=== PATIENT | male | born 1970 | race Caucasian/White ===

== ENCOUNTER 2025-06-13 09:36 | Inpatient (IN) | payer OTHER, SELFPAY ==
[2025-06-13] VITALS (10 sets, daily range): BP systolic 118–139; BP diastolic 79–91; PULSE 67–88; RESP 13–21; TEMP 36.3–36.5; O2SAT 79–99; BMI 34.4
--- OUTSIDE RECORDS SUMMARY | 2025-06-13 05:26 | XMS_ITS | Encounter Summary ---
Author Organization [facility] Address 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 WRIGHT and scanned into [employer]. * Rohan Amador RCP - 06/13/2025 8:49 AM CDT REPEAT EKG completed. Results given to Dr. WRIGHT and scanned into [employer]. documented in this encounter ED Notes * Smiley Guzman RN - 06/13/2025 9:00 AM CDT Report given to EMS. * Monserrat Sanchez RN - 06/13/2025 8:45 AM CDT Dispatch notified of patient transfer at this time. * Lynn Cohen RCP - 06/13/2025 5:41 AM CDT EKG completed. Results given to Dr. Estrada and scanned into [employer]. * Bianca Jay RN - 06/13/2025 5:26 [...] given to Dr. Estrada and scanned into [employer]. * Quinton Wright MD - 06/13/2025 5:09 [...] here with chest pain Differential includes ACS, CA, pneumonia, costochondritis, shingles Will do cardiac workup [...] obtained showing acute STEMI. Reached out to [facility] and the case was presented to the count team clerk who recommended for the patient to be [...] ED Stay from 06/13/2025 0509 to 06/13/2025 0873 Date/Time Order Dose Route Action 06/13/2025 0538 CDT aspirin ([place] CHEWABLE) chewable tablet 324 [...] for Stopping: fluticasone propionate (FLONASE) 50 mcg/spray [place], Suspension nasal inhaler Comments: Reason for Stopping: LAST VS BP: (!) 127/97 (06/13/25799), Heart Rate: 74 bpm (06/13/25799), Resp: 15 (06/13/25799), Pulse: 73 (06/13/25799), Temp: 98.8 ??F (37.1 ??C) (09/02/25 0520), Temp src: Oral (06/13/25 0520), SpO2: 95 % (06/13/25 0800) CLINICAL IMPRESSION Diagnosis Diagnosis Comment Added By Time Added ST elevation myocardial infarction (STEMI), unspecified artery ([facility]/HCC) [I21.3] Quinton Wright MD06/13/2025 8:41 AM DISPOSITION, EDUCATION AND MEDICATION RECONCILIATION Medications reconciled. See after visit summary for patient education on discharged patients. ED Disposition ED Disposition Transfer Condition Stable User Quinton Wright MD Date/Time ThuJun 13, 2025 8:44 AM Comment -- ATTESTATION STATEMENTS documented in this encounter Plan of Treatment Scheduled Orders Name Type Priority Associated Diagnoses Orde r Schedule TROPONIN 6 HR, 5TH GEN Lab Timed Study O NE TIME for 1 Occurrences starting 06/13/2025 until 06/13/2025 CBC WITHOUT DIFFERENTIAL Lab Routine EVERY SEVENTY-TWO HOURS until discontinued starting 06/13/2025 documented as of this encounter Procedures Procedure Name Priority Date/Time Associated Diagnosis Comments TROPONIN 2 HR, 5TH GEN Timed Study [...] CDT documented in this encounter Results * (ABNORMAL) TROPONIN 2 HR, 5TH GEN (06/13/2025 7:09 AM CDT) TROPONIN T, 2 HR 5TH GEN 23(H) <=15 ng/L 06/13/2025 7:27 AM CDT [facility] DELTA 2HR TROPONIN T 1 See Interp. 06/13/2025 7:27 AM CDT [facility] Blood BLOOD SPECIMEN / Unknown Collection / Unknown 06/13/2025 7:09 AM CDT 06/13/2025 7:14 AM CDT Narrative [facility] - 06/13/2025 7:27 AM CDT Troponin elevated. Delta not changing. us Levy Estrada MD CHEMISTRY ORDERABLES Final Result [facility] CLIA # [id number] [address] [place] [id number] * XR CHEST PA OR AP 1 [...] spine. IMPRESSION: No acute cardiopulmonary findings. Result [facility] Levy Estrada MD DIAGNOSTIC IMAGING [...] - 2.6 mg/dL 06/13/2025 9:12 AM CDT [facility] Blood BLOOD SPECIMEN / Unknown Collection / Unknown 06/13/2025 5:15 AM CDT 06/13/2025 5:25 AM CDT Quinton Wright MD CHEMISTRY ORDERABLES Final Resu lt [id number] [address] [place] [phone] * (ABNORMAL) TSH (06/13/2025 5:15 AM CDT) TSH 4.62(H) 0.27 - 4.20 uIU/mL 06/13/2025 9:12 AM CDT [facility] Blood BLOOD SPECIMEN / Unknown Collection / Unknown 06/13/2025 5:15 AM CDT 06/13/2025 5:25 AM CDT us Quinton Wright MD CHEMISTRY ORDERABLES Final Resu lt Performing Organization Address [facility] Co de Phone Number [facility] [id number] [address] [place] [phone] * BRAIN NATRIURETIC PEPTIDE, BNP OR PROBNP (06/13/2025 5:15 AM CDT) PROBNP, N TERMINAL <36 0 - 125 pg/mL 06/13/2025 9:12 AM CDT [facility] Comment: INTERPRETIVE COMMENT based on diagnosis: Diagnostic [...] ORDERABLES Final Resu lt Performing Organization Address City/[facility]/ZIP Co de Phone Number [facility] [id number] [address] [place] [phone] * PROTIME-INR (06/13/2025 5:15 AM CDT) PROTIME 12.7 12.1 - 14.3 Seconds 06/13/2025 9:01 AM CDT [facility] INR 1.0 0.9 - 1.1 06/13/2025 9:01 AM CDT [facility] Blood BLOOD SPECIMEN / Unknown Collection / Unknown 06/13/2025 5:15 AM CDT 06/13/2025 8:48 AM CDT us Quinton Wright MD HEMATOLOGY ORDERABLES Final Res ult [facility] CLIA # [id number] [address] [place] [id number] * D-DIMER (06/13/2025 5:15 AM CDT) Pathologist [facility] D-DIMER QUANT <0.15 <0.50 ug/mL FEU 06/13/2025 9:01 AM CDT [facility] Blood BLOOD SPECIMEN / Unknown Collection / Unknown 06/13/2025 5:15 AM CDT 06/13/2025 8:48 AM CDT Narrative [facility] - 06/13/2025 9:01 AM CDT D-Dimer assay [...] ug/mL FEU 71-80 years: 0.71-0.80 ug/mL FEU us Quinton Wright MD HEMATOLOGY ORDERABLES Final Res ult Performing Organization Address City/[facility]/ZIP Co de Phone Number [facility] CLIA # [id number] [address] [place] [phone] * PTT (06/13/2025 5:15 AM CDT) PTT 26.2 25.1 - 35.4 seconds 06/13/2025 9:01 AM CDT [facility] Blood BLOOD SPECIMEN / Unknown Collection / Unknown 06/13/2025 5:15 AM CDT 06/13/2025 8:48 AM CDT Quinton Wright MD HEMATOLOGY ORDERABLES Final Res ult Performing Organization Address [facility] Co de Phone Number [facility] CLIA # [id number] [address] [place] [phone] * (ABNORMAL) TROPONIN BASELINE, 5TH GEN (06/13/2025 5:15 AM CDT) TROPONIN T, BASELINE 5TH GEN 22(H) <=15 ng/L 06/13/2025 5:40 AM CDT [facility] Blood BLOOD SPECIMEN / Unknown Collection / Unknown 06/13/2025 5:15 AM CDT 06/13/2025 5:25 AM CDT Narrative [facility] - 06/13/2025 5:40 AM CDT Troponin elevated. Levy Estrada MD CHEMISTRY ORDERABLES Final Result Performing Organization Address City/[facility]/ZIP Co de Phone Number [facility] CLIA # [id number] [address] [place] [phone] * (ABNORMAL) COMPREHENSIVE METABOLIC PANEL (06/13/2025 5:15 AM CDT) SODIUM 132(L) 136 - 145 mmol/L 06/13/2025 5:40 AM [facility] POTASSIUM 4.2 3.5 - 5.1 mmol/L 06/13/2025 5:40 AM [facility] CHLORIDE 97(L) 98 - 107 mmol/L 06/13/2025 5:40 AM [facility] CO2 24 22 - 29 mmol/L 06/13/2025 5:40 AM [facility] CALCIUM 9.9 8.6 - 10.0 mg/dL 06/13/2025 5:40 AM [facility] BUN 13 6 - 20 mg/dL 06/13/2025 5:40 AM [facility] CREATININE 0.67 0.67 - 1.17 mg/dL 06/13/2025 5:40 AM [facility] GLUCOSE 224(H) 74 - 99 mg/dL 06/13/2025 5:40 AM [facility] TOTAL PROTEIN 7.7 6.6 - 8.7 g/dL 06/13/2025 5:40 AM [facility] ALBUMIN 4.3 3.5 - 5.2 g/dL 06/13/2025 5:40 AM [facility] BILIRUBIN TOTAL 0.6 0.0 - 1.2 mg/dL 06/13/2025 5:40 AM [facility] ALKALINE PHOSPHATASE 86 40 - 129 U/L 06/13/2025 5:40 AM [facility] AST 17 0 - 50 U/L 06/13/2025 5:40 AM [facility] ALT 11 0 - 50 U/L 06/13/2025 5:40 AM [facility] GFR >60 >=60 mL/min/1.7 3 sq meter 06/13/2025 5:40 AM [facility] Comment:eGFR calculated with 2020 CKD-EPI equation. Vegetarian diet, extremely high or low muscle mass, and may affect results. Cystatin C with Glomerular Filtration Rate is a suitable alternative for these patients. ANION GAP 11 5 - 20 mmol/L 06/13/2025 5:40 AM [facility] Blood BLOOD SPECIMEN / Unknown Collection / Unknown 06/13/2025 5:15 AM CDT 06/13/2025 5:25 AM CDT us Levy Estrada MD CHEMISTRY ORDERABLES Final Result [facility] CLIA # [id number] [address] [place] [phone] * (ABNORMAL) CBC WITH DIFFERENTIAL (06/13/2025 5:15 AM CDT) WBC 11.4(H) 4.2 - 9.1 K/uL 06/13/2025 5:38 AM [facility] RBC 6.34(H) 4.63 - 6.08 M/uL 06/13/2025 5:38 AM [facility] HEMOGLOBIN 18.2(H) 13.7 - 17.5 g/dL 06/13/2025 5:38 AM [facility] HEMATOCRIT 52.4(H) 40.1 - 51.0 % 06/13/2025 5:38 AM [facility] MCV 82.6 79.0 - 92.2 fL 06/13/2025 5:38 AM [facility] MCH 28.7 25.7 - 32.2 pg 06/13/2025 5:38 AM [facility] MCHC 34.7 32.3 - 36.5 g/dL 06/13/2025 5:38 AM [facility] RDW 13.1 11.0 - 14.5 % 06/13/2025 5:38 AM [facility] RDW-STDEV 38.5 36.9 - 56.9 fL 06/13/2025 5:38 AM [facility] PLATELETS 263 130 - 400 K/uL 06/13/2025 5:38 AM [facility] MPV 11.2 10.0 - 14.8 fL 06/13/2025 5:38 AM [facility] NEUTROPHILS 51 34 - 68 % 06/13/2025 5:38 AM CDT [facility] LYMPHOCYTES 39 22 - 53 % 06/13/2025 5:38 AM T [facility] MONOCYTES 7 5 - 12 % 06/13/2025 5:38 AM T [facility] EOSINOPHILS 2 1 - 7 % 06/13/2025 5:38 AM T [facility] BASOPHILS 1 0 - 1 % 06/13/2025 5:38 AM T [facility] IMMATURE GRANULOCYTES 0 % 06/13/2025 5:38 AM T [facility] NEUTROPHIL ABSOLUTE 5.78(H) 1.78 - 5.38 K/uL 06/13/2025 5:38 AM [facility] LYMPHOCYTE ABSOLUTE 4.48(H) 1.20 - 3.40 K/uL 06/13/2025 5:38 AM [facility] MONOCYTE ABSOLUTE 0.84(H) 0.30 - 0.82 K/uL 06/13/2025 5:38 AM T [facility] EOSINOPHIL ABSOLUTE 0.18 0.04 - 0.54 K/uL 06/13/2025 5:38 AM T [facility] BASOPHILS ABSOLUTE 0.07 0.01 - 0.08 K/uL 06/13/2025 5:38 AM [facility] IMMATURE GRANULOCYTES ABSOLUTE 0.03 K/uL 06/13/2025 5:38 AM [facility] Blood BLOOD SPECIMEN / Unknown Collection / Unknown 06/13/2025 5:15 AM CDT 06/13/2025 5:25 AM CDT us Levy Estrada MD HEMATOLOGY ORDERABLES Final Result [facility] # [id number] [address] [place] [address] [phone] * EKG 12-LEAD (06/13/2025 5:14 AM CDT) Narrative Quinton Wright MD - 06/13/2025 5:14 AM CDT Quinton Wright MD 06/13/2025 8:48 AM EKG 12-LEAD Date/Time: 06/13/2025 5:14 AM Performed by: Levy Estrada MD Authorized by: Levy Estrada MD Comments: Normal sinus rhythm rate of 81 mild right axis deviation subtle ST depressions in V5 but no contiguous or reciprocal changes No acute signs of's of infarct normal intervals Levy Estrada MD ECG ORDERABLES Final Result documented in this encounter Visit Diagnoses Diagnosis ST elevation myocardial infarction (STEMI), unspecified artery (CMS/HCC)- Primary ST elevation myocardial infarction (STEMI) (CMS/HCC) Acute myocardial infarction, unspecified site, episode of care unspecified documented in this encounter Administered Medications Active Administered Medications - up to 3 most recent administrations Medication Order MAR Action Action Date Dose Rate Site heparin in 0.45% NaCl 25,000 unit/250 mL infusion 11.7 Units/kg/hr 85.3 kg Adjusted weight (9.9801 mL/hr, rounded to 10 mL/hr), IV, TITRATE, Starting on Thu06/13/25 at 0845, Until Discontinued, Indication: ACS/STEMI, Dosing by: PER PROTOCOL: Delegate to facility protocol per indication, Re-bolus within Protocol? No, titrate infusion ONLY New Bag 06/13/2025 8:47 AM CDT 11.7 Units/kg/hr 10 mL/hr Inactive Administered Medications - up to 3 [...] 06/13/2025 8:50 AM CDT 600 mg heparin injection 4,000 Units 4,000 Units, IV, ONE TIME ONLY, 1 dose, On Thu06/13/25 at 0845, StatIndications:ACS/STEMI Given 06/13/2025 8:48 AM CDT 4,000 Units [...] TITRATE, Starting on Thu06/13/25 at 0845, Until Discontinued, Indication: ACS/STEMI, Dosing by: PER PROTOCOL: Delegate to facility protocol per indication, Re-bolus within Protocol? No, titrate infusion ONLY 0847 (New Bag - Prov ider: Smiley Guzman RN) documented in this encounter Care Teams Care Connector Relationship Specialty Start Date End Date Jojo Regalado MD [address] [address] PCP - General Family Practice 05/20/18 documented as of this encounter
--- OUTSIDE RECORDS SUMMARY | 2025-06-13 09:39 | XMS_ITS | Encounter Summary ---
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
--- OUTSIDE RECORDS SUMMARY | 2025-06-13 09:39 | XMS_ITS | Encounter Summary ---
Author Organization [facility] Address [address] [place] [address] Care Team Providers Care Non Licensed Operator Name Role Phone Jojo Regalado MD Primary Care Provider +1- [phone] Encounter Details Date Type Department Care Team (Latest Contact Info) Description 03/23/2008 Outpatient Historical [facility] [address] [place] [address] Non-Staff, Physician NO ADDRESS ON FILE Open Wound of Finger(s) , with Tendon Involvement Social History Tobacco Use Types Packs/Day Years Used Date Smoking Tobacco: Never Assessed Sex and Gender Information Value Date Recorded Sex Assigned at Not on file 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
--- OUTSIDE RECORDS SUMMARY | 2025-06-13 09:39 | XMS_ITS | Encounter Summary ---
Author Organization [facility] Address [address] [place] [address] Care Team Providers Care Mineral Wool Insulation Supervisor Name Role Phone Jojo Regalado MD Primary Care Provider +1- [phone] Encounter Details Date Type Department Care Team (Latest Contact Info) Description 04/23/2008 Outpatient Historical 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
--- OUTSIDE RECORDS SUMMARY | 2025-06-13 09:39 | XMS_ITS | Encounter Summary ---
Author Organization [facility] Address [address] [place] [address] Care Team Providers Care Corporate Securities Research Analyst Name Role Phone Jojo Regalado MD Primary Care Provider +1- [phone] Encounter Details Date Type Department Care Team (Latest Contact Info) Description 02/21/2008 Outpatient Historical [facility] Hand Therapy [address] [place] [address] Non-Staff, Physician NO ADDRESS ON FILE Open Wound of Finger(s) , with Tendon Involvement Social History Tobacco Use Types Packs/Day Years Used Date Smoking Tobacco: Never Assessed Sex and Gender Information Value Date Recorded Sex Assigned at Not on file 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
--- OUTSIDE RECORDS SUMMARY | 2025-06-13 09:39 | XMS_ITS | Encounter Summary ---
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
--- OUTSIDE RECORDS SUMMARY | 2025-06-13 09:39 | XMS_ITS | Encounter Summary ---
Author Organization [facility] Address [address] [place] [address] Care Team Providers Care Rn Cardiac Cath Name Role Phone Jojo Regalado MD Primary Care Provider [phone] Encounter Details Date Type Department Care Team (Late st Contact Info) Description 01/14/2008 Outpatient [facility] [address] [place] [address] [place] [phone] Max Pompa MD [address] [place] [address] Abn React-Artif Implant; Unspecified Place of Occurrence; Tobacco Use Disorder; Esophageal Reflux Social History Tobacco Use Types Packs/Day Years Used Date Smoking Tobacco: Never Assessed Sex and Gender Information Value Date Recorded Sex Assigned at Not on file 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 Gender Identity Not on file Sexual Orientation Not on file documented as of this encounter Plan of Treatment Not on file documented as of this encounter Visit Diagnoses Diagnosis Surgical operation with implant of artificial internal device causing abnormal patient reaction, or later complication, without mention of misadventure at time of operation Unspecified place of occurrence Tobacco use disorder Esophageal reflux documented in this encounter Care Teams Rn Cardiac Cath Relationship Specialty Start Date End Date Jojo Regalado MD [address] [phone] PCP - General Family Practice 05/20/18 documented as of this encounter
--- OUTSIDE RECORDS SUMMARY | 2025-06-13 09:39 | XMS_ITS | Encounter Summary ---
Author Organization [facility] Address [address] [place] [address] Care Team Providers Care Crab Picker Name Role Phone Jojo Regalado MD Primary Care Provider [phone]- [phone] Encounter Details Date Type Department Care Team (Late st Contact Info) Description 01/13/2008 Outpatient Historical [facility] [address] [place] [phone] Max Pompa MD [address] [place] [address] Social History Tobacco Use Types Packs/Day Years Used Date Smoking Tobacco: Never Assessed Sex and Gender Information Value Date Recorded Sex Assigned at Not on file 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 Findings: Comparison view of the right hand from 12/24/2007. Three views of the right index finger are submitted. In the interval, the pins previously in place across the fracture of the proximal phalanx of the right index finger have been removed. There has probably been a small amount of interval callous formation, but the fracture line remains visible. - Dictated By: Mickie Viveros M.D. Electronically Signed By: Mickie Viveros M.D. Date Signed: 01/14/08 Procedure Note Mickie Viveros - 01/14/2008 Exam: Finger(s) - Rt Date/Time of Exam: Jan 14, 2008 9:58:13 AM History: Recheck fracture. Findings: Comparison view of the right hand from 12/24/2007. Three views of the right index finger are submitted. In the interval, the pins previously in place across the fracture of theproximal phalanx of the right index finger have been removed. There has probably been a small amount ofinterval callous formation, but the fracture line remains visible. - Dictated By: Mickie Viveros M.D. Electronically Signed By: Mickie Viveros M.D. Date Signed: 01/14/08 Max Pompa MD DIAGNOSTIC IMAGING ORDERABLES Fi nal Result documented in this encounter Visit Diagnoses Not on filedocumented in this encounter Care Teams Crab Picker Relationship Specialty Start Date End Date Jojo Regalado MD [address] [facility] [address] [place] [phone] PCP - General Family Practice 05/20/18 documented as of this encounter
--- OUTSIDE RECORDS SUMMARY | 2025-06-13 09:39 | XMS_ITS | Encounter Summary ---
Author Organization [facility] Address [address] [place] [address] Care Team Providers Care Electric Trucker Name Role Phone Jojo Regalado MD Primary Care Provider [phone] Reason for Referral * Outpatient Services (Routine) - Closed Specialty Diagnoses / Procedures Referred By Contyusef gibson Referred To Contact Diagnoses Atrial fibrillation (CMS/HCC) Procedures ECHO TRANSESOPHAGEAL WO DOPPLER Radha Hameed MD [address] [place] [id number] Phone: tel: fax: Referral ID Status Reason Start Date Expiration Date Visits Re quested Visits Authorized [id number] Closed 08/01/2010 01/28/2011 1 1 Encounter Details Date Type Department Care Team (Late st Contact Info) Description 08/01/2010 Ancillary Orders [facility] [address] [place] [address] Radha Hameed MD [address] [place] [id number] Atrial fibrillation (CMS/HCC) Social History Tobacco Use Types Packs/Day Years Used Date Smoking Tobacco: Every Day Cigarettes 0.5 17 Alcohol Use Standard Drinks/Week Comments No 0 (1 standard drink = 0.6 oz pur e alcohol) Sex and Gender Information Value Date Recorded Sex Assigned at Not on file Legal Sex 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 Persistent atrial fibrillation. 2. Obesity. 3. Possible obstructive sleep apnea. POST-PROCEDURE DIAGNOSES: 1. Persistent atrial fibrillation. 2. Obesity. 3. Possible obstructive sleep apnea. 4. Status post pulmonary vein isolation and electrophysiology study. PROCEDURES PERFORMED: 1. Double transseptal with Brockenbrough needle technique. 2. 3D mapping of the pulmonary vein. 3. Radiofrequency ablation of all pulmonary veins guided by anatomic approach as well as pulmonary vein potential. 4. DC cardioversion. 5. Comprehensive electrophysiology study with and without isoproterenol attempting to induce any supraventricular tachycardia or VT other than atrial fibrillation. MATERIALS USED: 5 and 6 [place]i sheaths to the left femoral veins for quadruple and octapolar electrode catheter to map HIS bundle and RV apex area. 4 [place]i sheath to the left femoral artery for continuous blood pressure measurements. 8, 8 and 11 [place]i sheaths to the right femoral vein for the Orbitor electrode catheter, 8 millimeter ablation Carto mapping catheter, and intracardiac ultrasound catheter. 7 [place]i sheath to the right internal jugular for the Orbitor electrode catheter to map coronary sinus. DESCRIPTION OF PROCEDURE: After informed consent was obtained, the patient was sent to the electrophysiology lab in the postabsorptive state. All catheters were placed under fluoro guidance as mentioned above so we could electrically map the HIS bundle, RV apex, coronary sinus, left atrium, right atrium and RV. Intracardiac ultrasound was first advanced to the RV outflow tract area to see the pericardial space. The pericardial space was stable with some minor fat pad. Intracardiac ultrasound was also used to see the left atrium. We did not see evidence of thrombus. Brockenbrough needle technique then proceeded after all other catheters were placed. The patient was in persistent atrial fibrillation. Double transseptal proceeded guided by intracardiac ultrasound and fluoro as well as contrast. Once the left atrium was cannulated, the 8 millimeter catheter and adjustable circular electrode catheter was then placed into the left inferior pulmonary vein. Intracardiac ultrasound was then advanced to the RV outflow tract again to see the pericardial space. There was no change in the pericardial space. A 9500 unit heparin bolus was given and 2100 units per hour of heparin was infused. Throughout the procedure, we checked the activated clotting time every 15-20 minutes, and the patient's activated clotting time ranged from 311-418. First, we concentrated on the right superior pulmonary vein. The patient had quite a bit of signal in the right superior pulmonary vein. Radiofrequency ablation proceeded with 50 haddad at 60 degrees C. We stayed at one spot only 15 seconds to avoid esophageal damage. After we completely isolated the left superior vein, then we worked on the left inferior vein. The left inferior vein clearly had a different ostium from the left superior vein. Isolation was also done. Then we moved to the right superior pulmonary vein. The right superior pulmonary vein did not have much pulmonary vein potential so radiofrequency ablation was applied in both regions to achieve isolation. Then we worked on the right inferior pulmonary vein. The patient has a rather large right inferior pulmonary vein; however, the adjustable circular electrode catheter was not able to stay in place. We tried multiple times but we were not able to put the adjustable circular electrode catheter in place. So radiofrequency ablation proceeded with anatomic approach. At the end of the ablation, the adjustable circular catheter was placed into the area. At least 98% of pulmonary vein potential was gone. When we almost finished the right inferior pulmonary vein with intracardiac ultrasound we noticed a very small mobile mass in the adjustable circular electrode catheter area. Not sure if this was thrombus or not but suspicious. The adjustable circular electrode catheter was then removed from the left atrium and we suctioned blood from the long sheath, at least 40 mL of blood. There was no thrombus on the intracardiac ultrasound. The patient's gross neuro exam was negative. A couple more ablations proceeded to complete the [place] of the right inferior pulmonary vein. The patient was still in persistent atrial fibrillation after all four veins were isolated. Cardioversion proceeded with 300 joules which converted the patient back to normal sinus rhythm; however, the patient moved quite a bit and both sheaths and catheters moved out of position after DC cardioversion and we were no longer in the left atrium. Then we started to do the baseline study. Post ablation, baseline as follows: IA 156, QRS 86, QT 322, AH 70, HV 60, cycle length 670 milliseconds. Ventricular pacing 1:1 conduction until 270 milliseconds. Concentric conduction. Ventricular ERP was 500/200 milliseconds. No VT could be induced. Atrial pacing 1:1 conduction until 320 milliseconds. We saw AV node dual physiology from 100-150 milliseconds with pacing from 600/340 to 600/330 milliseconds. Atrial ERP was 600/200 milliseconds. Isoproterenol 1 microgram per minute was then infused to attempt to induce supraventricular tachycardia such as AV zane reentry tachycardia. Baseline as follows with isoproterenol post ablation: IA 150, QRS 85, QT 322, AH 65, HV 60, cycle length 590 milliseconds. Ventricular ERP was 500/210 with isoproterenol infusion without inducing ventricular tachycardia. Atrial decremental pacing post ablation on isoproterenol 1:1 until 260 milliseconds. Atrial ERP was 500/170 with double atrial stimulation attempting to induce atrial tachycardia or AVNRT all the way up to 400/290/170 milliseconds. Not able to induce any AV zane dual physiology or supraventricular tachycardia or atrial tachycardia. So we concluded the study. Throughout the procedure, the patient's hemodynamics and oxygenation were stable. He received a total of 10 milligrams Versed and 250 micrograms fentanyl. Total fluoro time was 31.9 minutes. Total number of ablations was 38. Total time of ablation was 1128 897 seconds. Post procedure, the intracardiac ultrasound was moved to the RV outflow tract to view the pericardial space. There was no pericardial space change. Gross neuro examination was done and there was no gross neuro examination deficit. FINAL SUMMARY: 1. Pulmonary vein isolation for persistent atrial fibrillation. 2. No supraventricular tachycardia or ventricular tachycardia could be induced after ablation with or without isoproterenol. 3. Mildly prolonged HV but has excellent AV conduction with isoproterenol. Procedure Note Radha Hameed MD - 09/04/2010 PRE-PROCEDURE DIAGNOSES: 1. Persistent atrial fibrillation. 2. Obesity. 3. Possible obstructive sleep apnea. POST-PROCEDURE DIAGNOSES: 1. Persistent atrial fibrillation. 2. Obesity. 3. Possible obstructive sleep apnea. 4. Status post pulmonary vein isolation and electrophysiology study. PROCEDURES PERFORMED: 1. Double transseptal with Brockenbrough needle technique. 2. 3D mapping of the pulmonary vein. 3. Radiofrequency ablation of all pulmonary veins guided by anatomicapproach as well as pulmonary vein potential. 4. DC cardioversion. 5. Comprehensive electrophysiology study with and without isoproterenolattempting to induce any supraventricular tachycardia or VT other thanatrial fibrillation. MATERIALS USED: 5 and 6 Kuwaiti sheaths to the left femoral veins forquadruple and octapolar electrode catheter to map HIS bundle and RV apexarea. 4 Kuwaiti sheath to the left femoral artery for continuous bloodpressure measurements. 8, 8 and 11 [place]i sheaths to the right femoralvein for the Orbitor electrode catheter, 8 millimeter ablation Cartomapping catheter, and intracardiac ultrasound catheter. 7 Kuwaiti sheath tothe right internal jugular for the Orbitor electrode catheter to mapcoronary sinus. DESCRIPTION OF PROCEDURE: After informed consent was obtained, the patientwas sent to the electrophysiology lab in the postabsorptive state. Allcatheters were placed under fluoro guidance as mentioned above so we couldelectrically map the HIS bundle, RV apex, coronary sinus, left atrium,right atrium and RV. Intracardiac ultrasound was first advanced to the RVoutflow tract area to see the pericardial space. The pericardial space wasstable with some minor fat pad. Intracardiac ultrasound was also used tosee the left atrium. We did not see evidence of thrombus. Brockenbroughneedle technique then proceeded after all other catheters were placed. Thepatient was in persistent atrial fibrillation. Double transseptalproceeded guided by intracardiac ultrasound and fluoro as well ascontrast. Once the left atrium was cannulated, the 8 millimeter catheterand adjustable circular electrode catheter was then placed into the leftinferior pulmonary vein. Intracardiac ultrasound was then advanced to theRV outflow tract again to see the pericardial space. There was no changein the pericardial space. A 9500 unit heparin bolus was given and 2100units per hour of heparin was infused. Throughout the procedure, wechecked the activated clotting time every 15-20 minutes, and the patient'sactivated clotting time ranged from 311- 418. First, we concentrated on theright superior pulmonary vein. The patient had quite a bit of signal inthe right superior pulmonary vein. Radiofrequency ablation proceeded with50 haddad at 60 degrees C. We stayed at one spot only 15 seconds to avoidesophageal damage. After we completely isolated the left superior vein,then we worked on the left inferior vein. The left inferior vein clearlyhad a different ostium from the left superior vein. Isolation was alsodone. Then we moved to the right superior pulmonary vein. The rightsuperior pulmonary vein did not have much pulmonary vein potential soradiofrequency ablation was applied in both regions to achieve isolation.Then we worked on the right inferior pulmonary vein. The patient has arather large right inferior pulmonary vein; however, the adjustablecircular electrode catheter was not able to stay in place. We triedmultiple times but we were not able to put the adjustable circularelectrode catheter in place. So radiofrequency ablation proceeded withanatomic approach. At the end of the ablation, the adjustable circularcatheter was placed into the area. At least 98% of pulmonary veinpotential was gone. When we almost finished the right inferior pulmonaryvein with intracardiac ultrasound we noticed a very small mobile mass inthe adjustable circular electrode catheter area. Not sure if this wasthrombus or not but suspicious. The adjustable circular electrode catheterwas then removed from the left atrium and we suctioned blood from the longsheath, at least 40 mL of blood. There was no thrombus on the intracardiacultrasound. The patient's gross neuro exam was negative. A couple moreablations proceeded to complete the [place] of the right inferior pulmonaryvein. The patient was still in persistent atrial fibrillation after allfour veins were isolated. Cardioversion proceeded with 300 joules whichconverted the patient back to normal sinus rhythm; however, the patientmoved quite a bit and both sheaths and catheters moved out of positionafter DC cardioversion and we were no longer in the left atrium. Then westarted to do the baseline study. Post ablation, baseline as follows: IA 156, QRS 86, QT 322, AH 70, HV 60,cycle length 670 milliseconds. Ventricular pacing 1:1 conduction until 270milliseconds. Concentric conduction. Ventricular ERP was 500/200milliseconds. No VT could be induced. Atrial pacing 1:1 conduction ecexe995 milliseconds. We saw AV node dual physiology from 100-150 millisecondswith pacing from 600/340 to 600/330 milliseconds. Atrial ERP was 600/200milliseconds. Isoproterenol 1 microgram per minute was then infused toattempt to induce supraventricular tachycardia such as AV zane reentrytachycardia. Baseline as follows with isoproterenol post ablation: IA 150,QRS 85, QT 322, AH 65, HV 60, cycle length 590 milliseconds. VentricularERP was 500/210 with isoproterenol infusion without inducing ventriculartachycardia. Atrial decremental pacing post ablation on isoproterenol 1:1until 260 milliseconds. Atrial ERP was 500/170 with double atrialstimulation attempting to induce atrial tachycardia or AVNRT all the wayup to 400/290/170 milliseconds. Not able to induce any AV zane dualphysiology or supraventricular tachycardia or atrial tachycardia. So weconcluded the study. Throughout the procedure, the patient's hemodynamics and oxygenation werestable. He received a total of 10 milligrams Versed and 250 microgramsfentanyl. Total fluoro time was 31.9 minutes. Total number of ablationswas 38. Total time of ablation was 1128 897 seconds. Post procedure, theintracardiac ultrasound was moved to the RV outflow tract to view thepericardial space. There was no pericardial space change. Gross neuroexamination was done and there was no gross neuro examination deficit. FINAL SUMMARY: 1. Pulmonary vein isolation for persistent atrial fibrillation. 2. No supraventricular tachycardia or ventricular tachycardia could beinduced after ablation with or without isoproterenol. 3. Mildly prolonged HV but has excellent AV conduction withisoproterenol. us Radha Hameed MD FLUOROSCOPY ORDERABLES Final Result [facility] * ECHO TRANSESOPHAGEAL WO DOPPLER (09/03/2010 8:58 AM AUTOMATIC PILOT MECHANIC) 09/03/2010 8:22 AM AUTOMATIC PILOT MECHANIC [facility] - 09/03/2010 9:10 AM AUTOMATIC PILOT MECHANIC [facility] Echocardiography Laboratory [address] [place] [id number] Transesophageal Echocardiography Patient: Baldemar Mahoney Study ID: ECHO TARASRUTHIOMAIRA Gender: M : 1970 Age: 40 Room: Study Date: 09/03/2010 Pt Status: Outpatient Study Time: 08:22 AM Ordering:zIa Hameed Interpreting:Alen Louis MD Administrator Of Home Health: Eliazar Vang [facility], [place] Indications and History: Atrial Fibrillation. Pre Ablation Procedure information: Study status: Routine. Consent: The risks, benefits, and alternatives to the procedure were explained to the patient and informed consent was obtained. Procedure: Initial setup. The patient was in the fasting state. Surface ECG leads, automatic cuff blood pressure measurements, and pulse oximetric signals were monitored. Sedation. Conscious sedation was administered by nursing staff. Transesophageal echocardiography. Topical anesthesia was obtained using benzocaine spray. An adult multiplane transesophageal probe was inserted by the attending bench mover without difficulty. Image quality was good. Intravenous contrast (agitated saline) was administered. The transesophageal probe was removed. Study completion: The patient tolerated the procedure well. There were no complications. Administered medications: Midazolam, 3 mg. Fentanyl, 50 mcg. Study components: 2D, complete spectral Doppler, color Doppler, and agitated saline. Patient status: Outpatient. Location: Special procedures room. Summary and Conclusion: - Left ventricle: The cavity size was normal. Wall thickness was upper normal to mildly increased. Systolic function was normal. The estimated ejection fraction was in the range of 55% to 60%. - Right ventricle: The cavity size was upper normal to mildly increased. Systolic function was normal. Systolic pressure was not accurately estimated. - Left atrium: The atrium was mildly dilated. No evidence of thrombus in the atrial cavity or appendage. The appendage was of normal size. Emptying velocity was normal. - Right atrium: The atrium was mildly dilated. No evidence of thrombus in the atrial cavity or appendage. - Atrial septum: No defect or patent foramen ovale was identified. Agitated saline contrast study showed no qiebf-ph-pbam shunt. Cardiac Anatomy: LEFT VENTRICLE: The cavity size was normal. Wall thickness was upper normal to mildly increased. Systolic function was normal. The estimated ejection fraction was in the range of 55% to 60%. No Regional Wall Motion Abnormalities identified. RIGHT VENTRICLE: The cavity size was upper normal to mildly increased. Systolic function was normal. Systolic pressure was not accurately estimated. LEFT ATRIUM: The atrium was mildly dilated. No evidence of thrombus in the atrial cavity or appendage. The appendage was of normal size. Emptying velocity was normal. RIGHT ATRIUM: The atrium was mildly dilated. No evidence of thrombus in the atrial cavity or appendage. ATRIAL SEPTUM: No defect or patent foramen ovale was identified. Agitated saline contrast study showed no ktnij-mv-pqrt shunt. AORTIC VALVE: Trileaflet; normal thickness leaflets. Cusp separation was normal. No evidence of vegetation. Doppler: No significant regurgitation. MITRAL VALVE: Structurally normal valve. Leaflet separation was normal. No evidence of vegetation. Doppler: Trivial regurgitation. TRICUSPID VALVE: Structurally normal valve. Leaflet separation was normal. No evidence of vegetation. Doppler: Trivial regurgitation. PULMONIC VALVE: The valve appears to be grossly normal. No evidence of vegetation. Doppler: No regurgitation. PERICARDIUM: There was no pericardial effusion. AORTA: There was no atheroma. There was no evidence for dissection. Aortic root: The aortic root was normal in size. Ascending aorta: The ascending aorta was normal in size. Aortic arch: The aortic arch was normal in size. Descending aorta: The descending aorta was normal in size. PULMONARY ARTERY: The main pulmonary artery was normal-sized. SYSTEMIC VEINS: Inferior vena cava: The vessel was mildly dilated. [facility] is accredited with the Intersocietal Commission for the Accreditation of Echocardiography Laboratories (ICAEL) Prepared and Electronically Authenticated Alen Louis MD Confirmed 09/03/2010 09:10 Procedure Note Alen Louis MD - 09/03/2010 [facility] Cardiovascular Services Echocardiography Laboratory [address] [place] [id number] Transesophageal Echocardiography Patient: Baldemar Mahoney Study ID: KULWINDER GOODRICH Gender: M : 1970 Age: 40 Room: Study Date: 09/03/2010 Pt Status: Outpatient Study Time: 08:22 AM Ordering:Iza Hameed Interpreting:Alen Louis MD Administrator Of Home Health: lEiazar Vang RD, [facility] [place] Indications and History: Atrial Fibrillation. Pre Ablation Procedure information: Study status: Routine. Consent: The risks, benefits, and alternatives to the procedure were explained to thepatient and informed consent was obtained. Procedure: Initial setup. The patient was in the fasting state. Surface ECG leads, automatic cuff bloodpressure measurements, and pulse oximetric signals were monitored. Sedation. Conscious sedation was administered by nursing staff. Transesophageal echocardiography. Topical anesthesia was obtained using benzocainespray. An adult multiplane transesophageal probe was inserted by the attending bench mover without difficulty. Image quality was good. Intravenous contrast (agitated saline) was administered. The transesophageal probewas removed. Study completion: The patient tolerated the procedure well.There were no complications. Administered medications: Midazolam, 3 mg.Fentanyl, 50 mcg. Study components: 2D, complete spectral Doppler, colorDoppler, and agitated saline. Patient status: Outpatient. Location: Special procedures room. Summary and Conclusion: - Left ventricle: The cavity size was normal. Wall thickness was upper normal to mildly increased. Systolic function was normal. Theestimated ejection fraction was in the range of 55% to 60%. - Right ventricle: The cavity size was upper normal to mildly increased. Systolic function was normal. Systolic pressure was not accurately estimated. - Left atrium: The atrium was mildly dilated. No evidence of thrombus in the atrial cavity or appendage. The appendage was of normal size. Emptying velocity was normal. - Right atrium: The atrium was mildly dilated. No evidence of thrombusin the atrial cavity or appendage. - Atrial septum: No defect or patent foramen ovale was identified.Agitated saline contrast study showed no korej-je-ecfu shunt. Cardiac Anatomy: LEFT VENTRICLE: The cavity size was normal. Wall thickness was uppernormal to mildly increased. Systolic function was normal. The estimatedejection fraction was in the range of 55% to 60%. No Regional Wall Motion Abnormalities identified. RIGHT VENTRICLE: The cavity size was upper normal to mildly increased. Systolic function was normal. Systolic pressure was not accurately estimated. LEFT ATRIUM: The atrium was mildly dilated. No evidence of thrombus inthe atrial cavity or appendage. The appendage was of normal size. Emptying velocity was normal. RIGHT ATRIUM: The atrium was mildly dilated. No evidence of thrombus inthe atrial cavity or appendage. ATRIAL SEPTUM: No defect or patent foramen ovale was identified.Agitated saline contrast study showed no utqwo-ee-tico shunt. AORTIC VALVE: Trileaflet; normal thickness leaflets. Cusp separation was normal. No evidence of vegetation. Doppler: No significantregurgitation. MITRAL VALVE: Structurally normal valve. Leaflet separation was normal.No evidence of vegetation. Doppler: Trivial regurgitation. TRICUSPID VALVE: Structurally normal valve. Leaflet separation wasnormal. No evidence of vegetation. Doppler: Trivial regurgitation. PULMONIC VALVE: The valve appears to be grossly normal. No evidence of vegetation. Doppler: No regurgitation. PERICARDIUM: There was no pericardial effusion. AORTA: There was no atheroma. There was no evidence for dissection.Aortic root: The aortic root was normal in size. Ascending aorta: The ascending aorta was normal in size. Aortic arch: The aortic arch was normal in size. Descending aorta: The descending aorta was normal in size. PULMONARY ARTERY: The main pulmonary artery was normal-sized. SYSTEMIC VEINS: Inferior vena cava: The vessel was mildly dilated. [facility] is accredited with the Intersocietal Commission forthe Accreditation of Echocardiography Laboratories (ICAEL) Prepared and Electronically Authenticated Alen Louis MD Confirmed 09/03/2010 09:10 [facility] Ross Hameed MD ORDERABLES Final Result Performing Organization Address City/State/[facility] Co de Phone Number INTERFACE SYSTEM Refer to clinic/hospital department documented in this encounter Visit Diagnoses Diagnosis Atrial fibrillation (CMS/HCC) Atrial fibrillation Atrial fibrillation (CMS/HCC) Atrial fibrillation Atrial fibrillation (CMS/HCC) Atrial fibrillation documented in this encounter Care Teams Electric Trucker Relationship Specialty Start Date End Date Jojo Regalado MD [address] [address] PCP - General Family Practice 05/20/18 documented as of this encounter
--- OUTSIDE RECORDS SUMMARY | 2025-06-13 09:39 | XMS_ITS | Encounter Summary ---
Author Organization [facility] Address [address] [place] [address] Care Team Providers Care Bellows Tester Name Role Phone Jojo Regalado MD Primary Care Provider +1- [phone] Encounter Details Date Type Department Care Team (Late st Contact Info) Description 11/29/2007 Outpatient Historical [facility] [address] [place] [phone] Max Pompa MD [address] [place] [address] Pain in Soft Tissues of Limb; Closed Fracture of Middle or Proximal Phalanx or Phalanges of Hand; Fracture in Accidental Fall, Cause Unspecified; Unspecified Place of Occurrence Social History Tobacco Use Types Packs/Day Years Used Date Smoking Tobacco: Never Assessed Sex and Gender Information Value Date Recorded Sex Assigned at Not on file Legal Sex Male 6:49 AM PERSONAL LINES AGENT Gender Identity Not on file Sexual Orientation Not on file documented as of this encounter Plan of Treatment Not on file documented as of this encounter Procedures Procedure Name Priority Date/Time Associated Diagnosis Comments XR FINGER THUMB RIGHT Routine 12/03/2007 10:22 AM PERSONAL LINES AGENT documented in this encounter Results * XR FINGER THUMB RIGHT (12/03/2007 10:22 AM PERSONAL LINES AGENT) Anatomical Region Laterality Modality Wrist / Hand Other 12/03/2007 10:2 2 AM PERSONAL LINES AGENT Narrative 12/03/2007 10:22 AM PERSONAL LINES AGENT Exam: Finger(s) - Rt Date/Time of Exam: Dec 03, 2007 10:22:00 AM History: pain. Comparison: None. Findings: Three views of the right second digit demonstrate open reduction and internal fixation of a transverse fracture of the proximal phalanx. Two pins are in place. The bony structures have been reduced to anatomic approximation. One of the pins traverses the fracture. A second pin is splinting the soft tissues in a palmar direction. No subluxation of the interphalangeal joints is noted. Impression: Internal fixation of second digit mid shaft proximal phalanx fracture. - Procedure Note Neymar Orr - 12/05/2007 Exam: Finger(s) - Rt Date/Time of Exam: Dec 03, 2007 10:22:00 AM History: pain. Comparison: None. Findings: Three views of the right second digit demonstrate open reductionand internal fixation of a transverse fracture of the proximal phalanx. Two pins are in place. Thebony structures have been reduced to anatomic approximation. One of the pins traverses the fracture.A second pin is splinting the soft tissues in a palmar direction. No subluxation of theinterphalangeal joints is noted. Impression: Internal fixation of second digit mid shaft proximal phalanxfracture. - Max Pompa MD DIAGNOSTIC IMAGING ORDERABLES Fi nal Result documented in this encounter Visit Diagnoses Diagnosis Pain in limb Closed fracture of middle or proximal phalanx or phalanges of hand Fracture, cause unspecified(E887) Fracture, cause unspecified Unspecified place of occurrence documented in this encounter Care Teams Bellows Tester Relationship Specialty Start Date End Date Jojo Regalado MD [address] [address] PCP - General Family Practice 05/20/18 documented as of this encounter
--- OUTSIDE RECORDS SUMMARY | 2025-06-13 09:39 | XMS_ITS | Encounter Summary ---
Author Organization [facility] Address [address] [place] [address] Care Team Providers Care Engineered Wood Designer Name Role Phone Jojo Regalado MD Primary Care Provider +1- [phone] Encounter Details Date Type Department Care Team (Late st Contact Info) Description 12/03/2007 Outpatient Historical [facility] Plastic Surgery 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
--- OUTSIDE RECORDS SUMMARY | 2025-06-13 09:39 | XMS_ITS | Clinical Summary ---
Author Organization [facility] Address [address] [place] [address] Care Team Providers Care Donation Specialist Name Role Phone Jojo Regalado MD Primary Care Provider Allergies No known active allergies Medications naproxen sodium (ALEVE) 220 mg Oral Tab Take 220 mg by mouth every 4 hours as needed. Active fluticasone propionate (FLONASE) 50 mcg/spray [place], Suspension nasal inhaler Administer 2 Sprays in each nostril daily. 48 Gram 1 9 Active levothyroxine 200 mcg tabletIndication s:Hypothyroidism following radioiodine therapy Take 1 Tablet (200 mcg) by mouth daily in the morning. 90 Tablet 1 1 Active glipiZIDE (GLUCOTROL) 5 mg tablet TAKE 1 TABLET BY MOUTH TWICE DAILY. 180 Tablet 3 1 Active metFORMIN (GLUCOPHAGE) 1,000 mg tablet TAKE 1 TABLET ( 1,000 MG ) BY MOUTH TWICE DAILY WITH MEALS 180 Tablet 3 1 Active omeprazole (PriLOSEC) 40 mg Capsule, Delayed Release(E.C.) Take 1 Capsule (40 mg) by mouth daily. 90 Capsule 1 1 Active Active Problems Problem Noted Date Diagnosed Date Tobacco use 11/19/2020 Atrial fibrillation 05/21/2010 Hypothyroidism following radioiodine therapy Chest pain, unspecified 01/23/2010 Family History Medical History Relation Name Comments Diabetes Brother Diabetes Father Heart Disease Father Diabetes Mother Heart Disease Mother Relation Name Status Comments Brother Father Mother Social History Tobacco Use Types Packs/Day Years Used Date Smoking Tobacco: Every Day Cigarettes 0.5 17 Alcohol Use Standard Drinks/Week Comments No 0 (1 standard drink = 0.6 oz pur e alcohol) Sex and Gender Information Value Date Recorded Sex Assigned at Not on file Legal Sex Male 6:49 AM IT TRAINING SPECIALIST Gender Identity Not on file Sexual Orientation Not on file Last Filed Vital Signs Vital Sign Reading Time Taken Comments Blood Pressure 112/74 09/29/2019 9:04 AM IT TRAINING SPECIALIST Pulse 72 09/29/2019 9:04 AM IT TRAINING SPECIALIST Temperature 36.6 C (97.8 F) 09/29/2019 9:04 AM IT TRAINING SPECIALIST Respiratory Rate 21 12/13/2018 10:07 AM IT TRAINING SPECIALIST Oxygen Saturation 98% 09/29/2019 9:04 AM IT TRAINING SPECIALIST Inhaled Oxygen Concentration - - Weight 123.4 kg (272 lb) 09/29/2019 9:04 AM IT TRAINING SPECIALIST Height 175.3 cm (5' 9 ) 09/29/2019 9:04 AM IT TRAINING SPECIALIST Body Mass Index 40.17 09/29/2019 9:04 AM IT TRAINING SPECIALIST Plan of Treatment Health Maintenance Due Date Last Done Comments DIABETES ANNUAL FOOT EXAM 1990 DIABETES ANNUAL RETINAL EXAM 1990 DTAP/TDAP/TD VACCINES (1 - Tdap) 1991 HEPATITIS B VACCINES (1 of 3 - 19+ 3-dose series) 1991 COLORECTAL SCREENING 2017 Colorectal Cancer Screening 2017 FIT-DNA Q 3 years 2017 FIT/FOBT Q 1 year 2017 Flex Sig/CT Colonography Q 5 years 2017 DIABETES MICROALBUMIN ANNUAL SCREEN 11/01/2020 11/01/2019, 12/13/2018 DIABETES HBA1C Q 6 MONTHS 06/21/20212020, 12/13/2018, 05/24/2018, Additional history exists LDL CHOLESTEROL ANNUAL 12/19/2021 1, 11/01/2019, 12/13/2018, Additional history exists ZOSTER VACCINE (1 of 2) 2022 INFLUENZA VACCINE (#1) 2025 1, 11/19/2020, 09/29/2019, Additional history exists Procedures Procedure Name Priority Date/Time Associated Diagnosis Comments LIPID PANEL Routine 12/19/2020 7:00 AM IT TRAINING SPECIALIST Hyperlipidemia, unspecified hyperlipidemia type MICROALBUMIN/CREATI NINE RATIO, RANDOM UR Routine 11/01/2019 7:40 AM IT TRAINING SPECIALIST Type 2 diabetes mellitus without complication, without long-term current use of insulin ([facility]) HEMOGLOBIN A1C Routine 12/13/2018 10:44 AM IT TRAINING SPECIALIST Type 2 diabetes mellitus with hyperglycemia, without long-term current use of insulin ([facility]) from Last 3 Months or Most Recently Relevant to Health Maintenance Results * LIPID PANEL (12/19/2020 7:00 AM IT TRAINING SPECIALIST) ABSTRACTED CHOLESTEROL 243 EXTERNAL LAB ABSTRACTED TRIGLYCERIDE 328 EXTERNAL LAB ABSTRACTED HDL 42 EXTERNAL LAB ABSTRACTED LDL CALCULATED 151 EXTERNAL LAB CHOLESTEROL EXTERNAL LAB TRIGLYCERIDE EXTERNAL LAB HDL EXTERNAL LAB LDL CALCULATED EXTERNAL LAB Blood 12/19/2020 7:00 AM IT TRAINING SPECIALIST Ottoniel ALMAGUER CHEMISTRY ORDERABLES Final Re sult EXTERNAL LAB * MICROALBUMIN/CREATININE RATIO, RANDOM UR (11/01/2019 7:40 AM IT TRAINING SPECIALIST) ABSTRACTED MICROALBUMIN,URI NE 2.0 EXTERNAL LAB MICROALBUMIN, URINE EXTERNAL LAB CREATININE, URINE EXTERNAL LAB MICROALBUMIN/CRE AT RATIO, UR EXTERNAL LAB MICROALBUMIN, URINE EXTERNAL LAB CREATININE, URINE EXTERNAL LAB MICROALBUMIN/CRE AT RATIO, UR EXTERNAL LAB Urine URINE SPECIMEN OBTAINED BY CLEAN CATCH PROCEDURE / Unknown 11/01/2019 7:40 AM IT TRAINING SPECIALIST Ottoniel ALMAGUER URINE ORDERABLES Final Result EXTERNAL LAB * (ABNORMAL) HEMOGLOBIN A1C (12/13/2018 10:44 AM IT TRAINING SPECIALIST) HEMOGLOBIN A1C 9.3(H) See Comment % 12/13/2018 8:21 PM IT TRAINING SPECIALIST [facility] EST. AVG GLUCOSE, A1C 220 mg/dL 12/13/2018 8:21 PM IT TRAINING SPECIALIST [facility] Blood Collection / Unknown 12/13/2018 10:44 AM IT TRAINING SPECIALIST 12/13/2018 7:44 PM IT TRAINING SPECIALIST Narrative [facility] - 12/13/2018 8:21 PM IT TRAINING SPECIALIST HGB A1C INTERPRETATION NORMAL: <5.7% PRE-DIABETES: 5.7 - 6.4% DIABETES: 6.5% OR GREATER Falsely low A1C measurements can occur when: 1. Anemia and/or hemolytic anemia is present. 2. Hemoglobin variants present. 3. Renal failure. 4. Transfusion of blood product in the last 120 days. We recommend ordering a fructosamine test([id number]) to more accurately assess glycemic status if any of the above conditions are present. Ottoniel ALMAGUER CHEMISTRY ORDERABLES Final Re sult [facility] CLIA# [id number] [facility] [place] [address] from Last 3 Months or Most Recently Relevant to Health Maintenance Insurance WORKERS COMP Advance Directives For more information, please contact: [phone] * Full Code (Latest Code Status on File) Date Activated Date Inactivated Comments 09/04/2010 12:45 PM 09/05/2010 12:03 PM * Full Code Date Activated Date Inactivated Comments 09/04/2010 6:24 AM 09/04/2010 12:45 PM Care Teams Donation Specialist Relationship Specialty Start Date End Date Jojo Regalado MD [address] [address] PCP - General Family Practice 05/20/18
--- OUTSIDE RECORDS SUMMARY | 2025-06-13 09:39 | XMS_ITS | Encounter Summary ---
Author Organization [facility] Address [address] [place] [address] Care Team Providers Care Implementation Project Coordinator Name Role Phone Jojo Regalado MD Primary Care Provider +1- [phone] Encounter Details Date Type Department Care Team (Latest Contact Info) Description 01/21/2008 Outpatient Historical [facility] Hand Therapy [address] [place] [address] Non-Staff, Physician NO ADDRESS ON FILE Open Wound of Finger(s) , with Tendon Involvement Social History Tobacco Use Types Packs/Day Years Used Date Smoking Tobacco: Never Assessed Sex and Gender Information Value Date Recorded Sex Assigned at Not on file Legal Sex Male 6:49 AM GLUING MACHINE OPERATOR Gender Identity Not on file Sexual Orientation Not on file documented as of this encounter Plan of Treatment Not on file documented as of this encounter Visit Diagnoses Diagnosis Open wound of finger(s) , with tendon involvement documented in this encounter Care Teams Implementation Project Coordinator Relationship Specialty Start Date End Date Jojo Regalado MD [address] [phone] PCP - General Family Practice 05/20/18 documented as of this encounter
--- OUTSIDE RECORDS SUMMARY | 2025-06-13 09:39 | XMS_ITS | Encounter Summary ---
Author Organization [facility] Address [address] [place] [address] Care Team Providers Care Shipwright Supervisor Name Role Phone Jojo Regalado MD Primary Care Provider +1- [phone] Encounter Details Date Type Department Care Team (Late st Contact Info) Description 12/17/2007 Outpatient Historical [facility] [address] [place] [address] Max Pompa MD [address] [place] [address] Social History Tobacco Use Types Packs/Day Years Used Date Smoking Tobacco: Never Assessed Sex and Gender Information Value Date Recorded Sex Assigned at Not on file Legal Sex Male 6:49 AM CABINET PROFESSIONAL Gender Identity Not on file Sexual Orientation Not on file documented as of this encounter Plan of Treatment Not on file documented as of this encounter Procedures Procedure Name Priority Date/Time Associated Diagnosis Comments XR HAND 3+ VW RIGHT Routine 12/24/2007 1 0:05 AM CDT documented in this encounter Results * XR HAND 3+ VW RIGHT (12/24/2007 10:05 AM CDT) Anatomical Region Laterality Modality Wrist / Hand Other 12/24/2007 10:0 5 AM CDT Narrative 12/24/2007 10:05 AM CDT Three views of the right hand are submitted and the prior exam is December 03, 2007. Postoperative changes with 2 K-wires extending through the right second proximal phalanx are noted. There is evidence of ongoing bony reabsorption and immature callus formation extending through the fracture. Soft tissue deformity and swelling is noted. There is no subcutaneous emphysema. Soft tissue swelling is improving. Impression: Ongoing healing of the second proximal phalanx fracture. Procedure Note Ana Frank - 12/24/2007 Three views of the right hand are submitted and the prior exam is 2007. Postoperative changes with 2 K-wires extending through the right secondproximal phalanx are noted. There is evidence of ongoing bony reabsorption and immature callus formationextending through the fracture. Soft tissue deformity and swelling is noted. There is no subcutaneousemphysema. Soft tissue swelling is improving. Impression: Ongoing healing of the second proximal phalanx fracture. Max Pompa MD DIAGNOSTIC IMAGING ORDERABLES Fi nal Result documented in this encounter Visit Diagnoses Not on filedocumented in this encounter Care Teams Shipwright Supervisor Relationship Specialty Start Date End Date Jojo Regalado MD [address] [facility] [place] [address] PCP - General Family Practice 05/20/18 documented as of this encounter
--- OUTSIDE RECORDS SUMMARY | 2025-06-13 09:39 | XMS_ITS | Encounter Summary ---
Author Organization [facility] Address [address] [place] [address] Care Team Providers Care Wash Mill Operator Name Role Phone Jojo Regalado MD Primary Care Provider +1- [phone] Encounter Details Date Type Department Care Team (Late st Contact Info) Description 12/24/2007 Outpatient Historical [facility] [address] [place] [address] Max Pompa MD [address] [place] [address] Social History Tobacco Use Types Packs/Day Years Used Date Smoking Tobacco: Never Assessed Sex and Gender Information Value Date Recorded Sex Assigned at Not on file Legal Sex Male 6:49 AM SENIOR PREMIUM AUDITOR Gender Identity Not on file Sexual Orientation Not on file documented as of this encounter Plan of Treatment Not on file documented as of this encounter Visit Diagnoses Not on filedocumented in this encounter Care Teams Wash Mill Operator Relationship Specialty Start Date End Date Jojo Regalado MD [address] [facility] [address] [place] [address] PCP - General Family Practice 05/20/18 documented as of this encounter
--- OUTSIDE RECORDS SUMMARY | 2025-06-13 09:39 | XMS_ITS | Encounter Summary ---
Author Organization [facility] Address [address] [place] [address] Care Team Providers Care Signal Processing Engineer Name Role Phone Jojo Regalado MD Primary Care Provider +1- [phone] Encounter Details Date Type Department Care Team (Latest Contact Info) Description 11/20/2007 Outpatient Historical [facility] [address] [place] [address] Ed, Physician NO ADDRESS ON FILE Scotty Dial MD [address] [place] [address] Max Pompa MD [address] [place] [address] Open Wound of Finger(s) , with Tendon Involvement; Accident Caused by Other Specified Machinery; Place of Occurrence, Industrial Places and Premises Social History Tobacco Use Types Packs/Day Years Used Date Smoking Tobacco: Never Assessed Sex and Gender Information Value Date Recorded Sex Assigned at Not on file Legal Sex Male 6:49 AM UNIFORM DESIGNER Gender Identity Not on file Sexual Orientation Not on file documented as of this encounter Plan of Treatment Not on file documented as of this encounter Procedures Procedure Name Priority Date/Time Associated Diagnosis Comments XR FLUORO LESS THAN 1 HOUR Routine 11/20/2007 8:30 PM UNIFORM DESIGNER documented in this encounter Results * XR FLUORO < 1 HOUR (11/20/2007 8:30 PM UNIFORM DESIGNER) Anatomical Region Laterality Modality Other 11/20/2007 8:30 PM UNIFORM DESIGNER Narrative 11/22/2007 12:17 AM UNIFORM DESIGNER Finalized by interface cleanup utility. No report expected. Procedure Note 10/22/2008 Finalized by interface cleanup utility. No report expected. Max Pompa MD DIAGNOSTIC IMAGING ORDERABLES Fi nal Result documented in this encounter Visit Diagnoses Diagnosis Open wound of finger(s) , with tendon involvement Accident caused by other specified machinery Place of occurrence, industrial places and premises documented in this encounter Care Teams Signal Processing Engineer Relationship Specialty Start Date End Date Jojo Regalado MD [address] [phone] PCP - General Family Practice 05/20/18 documented as of this encounter
--- OUTSIDE RECORDS SUMMARY | 2025-06-13 09:39 | XMS_ITS | Encounter Summary ---
Author Organization [facility] Address [address] [place] [address] Care Team Providers Care Client Technical Professional Name Role Phone Jojo Regalado MD Primary Care Provider +1- [phone] Encounter Details Date Type Department Care Team (Latest Contact Info) Description 06/22/2007 [facility] [address] [place] [address] Eneida Black, Carlos [place] MD NO ADDRESS ON FILE Thyrotoxicosis NOS w/o Crisis (Primary Dx) Social History Tobacco Use Types Packs/Day Years Used Date Smoking Tobacco: Never Assessed Sex and Gender Information Value Date Recorded Sex Assigned at Not on file Legal Sex Male 6:49 AM MILITARY PAY CLERK Gender Identity Not on file Sexual Orientation Not on file documented as of this encounter Plan of Treatment Not on file documented as of this encounter Procedures Procedure Name Priority Date/Time Associated Diagnosis Comments NM RADIOPHARM THERAPY ORAL ADMIN Routine 06/22/2007 1:09 PM CDT documented in this encounter Results * NM RADIOPHARM THERAPY ORAL ADMIN (06/22/2007 1:09 PM CDT) 06/22/2007 1:09 PM CDT Narrative INTERFACE SYSTEM - 06/22/2007 1:09 PM CDT Therapy Note: Radiopharmaceutical: I-131 sodium iodide Dose: 20.9 mCiReason for Consultation: Therapy of hyperthyroidism. The patient is a 36-year-old male who was referred for evaluation and treatment of hyperthyroidism bymeans of radioiodine. The patient gives approximately an 18 month history of symptoms compatiblewith hyperthyroidism including significant weight loss, irritability and tremulousness. A TSHperformed on 05/07/2007 was 0.02 micro-IU units per milliliter. The free T4 performed on the sameday was 3.3 ng/dL (normal 0.58-1.64). A total T4 performed on 05/07/2007 was 19.6 mcg/dL is normal4.5-12). A free T3 performed on the same day was 14.34 pg/mL (normal 2.30-4.20). A thyroid imagingexamination performed at [facility] on 05/12/2007 demonstrated adiffuse toxic goiter with a 24 hour radioiodine uptake of 60%. The procedure and complications were fully explained to the patient. This included no therapy at all,antithyroid medication, surgery, and radioactive iodine. With relative good understanding, hesigned the appropriate consent form. Following an overnight fast, the patient was administered 20.9 mCi of I-131 sodium iodide orallywithout difficulty. He was instructed not to eat or drink anything for two hours followingadministration of this dose. He was then instructed to not have seafood or iodine containingmedications for three days. He was asked to drink an extra amount of fluid with frequent emptyingof his bladder. The radiation safety precautions were explained to the patient, and he was given apamphlet outlining these precautions. Follow-up will be with Dr. Carlos Monique. - Dictated By: Jeremiah Dye M.D. Electronically Signed By: Jeremiah Dye M.D. Date Signed: 06/23/07 [facility] Procedure Note 09/02/2009 Therapy Note: Radiopharmaceutical: I-131 sodium iodide Dose: 20.9 mCiReason for Consultation: Therapy of hyperthyroidism. The patient is a 36-year-old male who was referred for evaluation andtreatment of hyperthyroidism bymeans of radioiodine. The patient gives approximately an 18 monthhistory of symptoms compatiblewith hyperthyroidism including significant weight loss, irritability andtremulousness. A TSHperformed on 05/07/2007 was 0.02 micro-IU units per milliliter. The free T4 performed onthe sameday was 3.3 ng/dL (normal 0.58-1.64). A total T4 performed on 05/07/2007 was 19.6 mcg/dL isnormal4.5-12). A free T3 performed on the same day was 14.34 pg/mL (normal 2.30-4.20). A thyroidimagingexamination performed at [facility] in [facility] on 05/12/2007 demonstratedadiffuse toxic goiter with a 24 hour radioiodine uptake of 60%. The procedure and complications were fully explained to the patient. Thisincluded no therapy at all,antithyroid medication, surgery, and radioactive iodine. With relativegood understanding, hesigned the appropriate consent form. Following an overnight fast, the patient was administered 20.9 mCi ofI-131 sodium iodide orallywithout difficulty. He was instructed not to eat or drink anything for two hoursfollowingadministration of this dose. He was then instructed to not have seafood or iodinecontainingmedications for three days. He was asked to drink an extra amount of fluid with frequent emptyingof hisbladder. The radiation safety precautions were explained to the patient, and he was given apamphletoutlining these precautions. Follow-up will be with Dr. Carlos Monique. - Dictated By: Jeremiah Dye M.D. Electronically Signed By: Jeremiah Dye M.D. Date Signed: 06/23/07 AMA us Carlos Monique Jr., MD [place] ORDERABLES Final Resul t INTERFACE SYSTEM Refer to clinic/hospital department documented in this encounter Visit Diagnoses Diagnosis Thyrotoxicosis without mention of goiter or other cause, without mention of thyrotoxic crisis or storm- Primary documented in this encounter Care Teams Client Technical Professional Relationship Specialty Start Date End Date Jojo Regalado MD [address] [facility] [address] [place] [phone] PCP - General Family Practice 05/20/18 documented as of this encounter
--- OUTSIDE RECORDS SUMMARY | 2025-06-13 09:39 | XMS_ITS | Encounter Summary ---
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
--- OUTSIDE RECORDS SUMMARY | 2025-06-13 09:39 | XMS_ITS | Clinical Summary ---
Author Organization [facility] Address [address] Ocampo: Epic Prelude ADT [place] [address] Care Team Providers Care Pin Sorter And Bagger Name Role Phone Jojo Regalado MD Primary Care Provider [phone]- [phone] Allergies No known active allergies Medications omeprazole (PriLOSEC) 40 mg Capsule, Delayed Release(E.C.) Take 1 Capsule (40 mg) by mouth daily. 90 Capsule 1 1 Active glipiZIDE (GLUCOTROL) 5 mg tablet Take 1 Tablet (5 mg) by mouth 2 times daily. Needs appt/lab prior to further refills to establish with new provider. 60 Tablet 2 Active levothyroxine (EUTHYROX) 200 mcg tabletIndication s:Hypothyroidism following radioiodine therapy TAKE 1 TABLET BY MOUTH ONCE DAILY IN THE MORNING Needs appt prior to next refill 30 Tablet 2 Active Active Problems Problem Noted Date Diagnosed Date ST elevation myocardial infarction (STEMI) 06/13 Tobacco use 11/19/2020 Atrial fibrillation 05/21/2010 Hypothyroidism following radioiodine therapy Chest pain, unspecified 01/23/2010 Encounters Date Type Department Care Team Description 06/13/2025 5:26 AM CDT - 06/13/2025 9:06 AM CDT Emergency [facility] Emergency Medicine [address] [place] [id number] elevation myocardial infarction (STEMI), unspecified artery (CMS/HCC) (Primary Dx) Discharge Disposition: [facility] 06/13/2025 Travel from Last 3 Months Family History Medical History Relation Name Comments [...] on file 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 Gender Identity Not on file Sexual Orientation [...] Mass Index 34.91 06/13/2025 5:20 AM CDT Plan of Treatment Health Maintenance Due Date Last Done Comments DTAP/TDAP/TD VACCINES (1 - Tdap) 1991 HEPATITIS B VACCINES (1 of 3 - 19+ 3-dose series) 1991 COLORECTAL SCREENING 2017 Colorectal Cancer Screening 2017 FIT-DNA Q 3 years 2017 FIT/FOBT Q 1 year 2017 Flex Sig/CT Colonography Q 5 years 2017 ZOSTER VACCINE (1 of 2) 2022 Pre-Diabetes and Diabetes Screening 12/20/2023 12/19/2020, 11/01/2019, 12/13/2018, Additional history exists INFLUENZA VACCINE (#1) 2025 , 11/19/2020, 09/29/2019, Additional history exists Procedures Procedure Name Priority Date/Time Associated Diagnosis Comments TROPONIN 2 HR, 5TH GEN Timed Study 06/13/2025 7:09 AM CDT XR CHEST PA OR AP 1 VW Stat 06/13/2025 5:54 AM CDT EKG 12-LEAD Routine 06/13/2025 5:41 AM CDT MAGNESIUM LEVEL Stat 06/13/2025 5:15 AM CDT TSH Stat 06/13/2025 5:15 AM CDT BRAIN NATRIURETIC PEPTIDE, BNP OR PROBNP Stat 06/13/2025 5:15 AM CDT PROTIME-INR Stat 06/13/2025 5:15 AM CDT D-DIMER Stat 06/13/2025 5:15 AM CDT PTT Stat 06/13/2025 5:15 AM CDT TROPONIN BASELINE, 5TH GEN Stat 06/13/2025 5:15 AM CDT COMPREHENSIVE METABOLIC PANEL Stat 06/13/2025 5:15 AM CDT CBC WITH DIFFERENTIAL Stat 06/13/2025 5:15 AM CDT EKG 12-LEAD Stat 06/13/2025 5:14 AM CDT HEMOGLOBIN A1C Routine 12/19/2020 7:00 AM DEEP FAT FRY COOK from Last 3 Months or Most Recently Relevant to Health Maintenance Results * (ABNORMAL) TROPONIN 2 HR, 5TH GEN (06/13/2025 7:09 AM CDT) TROPONIN T, 2 HR 5TH GEN 23(H) <=15 ng/L 06/13/2025 7:27 AM CDT [facility] DELTA 2HR TROPONIN T 1 See Interp. 06/13/2025 7:27 AM CDT [facility] Blood BLOOD SPECIMEN / Unknown Collection / Unknown 06/13/2025 7:09 AM CDT 06/13/2025 7:14 AM CDT Narrative [facility] - 06/13/2025 7:27 AM CDT Troponin elevated. Delta not changing. Levy Estrada MD CHEMISTRY ORDERABLES Final Result [facility] CLIA # [id number] [address] [place] [phone] * XR CHEST PA OR AP 1 [...] thoracic spine. IMPRESSION: No acute cardiopulmonary findings. Levy Estrada MD DIAGNOSTIC IMAGING OR DERABLES Final Result * EKG Interpretation (06/13/2025 5:41 AM CDT) Only the most recent of2 resultswithin the time period is included. Quinton Meyer MD - 06/13/2025 5:41 AM CDT Quinton Portillo MD 06/13/2025 8:48 AM EKG Interpretation Date/Time: 06/13/2025 5:41 AM Performed by: Levy Estrada MD Authorized by: Levy Estrada MD Rate: ECG rate: 71 ECG rate assessment: age appropriate Rhythm: Rhythm Origin: sinus Comments: Normal sinus rhythm incomplete right bundle branch block anterior changes have resolved normal axis and intervals Levy Estrada MD ECG ORDERABLES Final Result * (ABNORMAL) TROPONIN BASELINE, 5TH GEN (06/13/2025 5:15 AM CDT) TROPONIN T, BASELINE 5TH GEN 22(H) <=15 ng/L 06/13/2025 5:40 AM CDT [facility] Blood BLOOD SPECIMEN / Unknown Collection / Unknown 06/13/2025 5:15 AM CDT 06/13/2025 5:25 AM CDT [facility] - 06/13/2025 5:40 AM CDT Troponin elevated. Levy Estrada MD CHEMISTRY ORDERABLES Final Result [facility] CLIA # [id number] [address] [place] [address] * (ABNORMAL) CBC WITH DIFFERENTIAL (06/13/2025 5:15 AM CDT) WBC 11.4(H) 4.2 - 9.1 K/uL 06/13/2025 5:38 AM CDT [facility] RBC 6.34(H) 4.63 - 6.08 M/uL 06/13/2025 5:38 AM CDT [facility] HEMOGLOBIN 18.2(H) 13.7 - 17.5 g/dL 06/13/2025 5:38 AM [facility] HEMATOCRIT 52.4(H) 40.1 - 51.0 % 06/13/2025 5:38 AM [facility] MCV 82.6 79.0 - 92.2 fL 06/13/2025 5:38 AM [facility] MCH 28.7 25.7 - 32.2 pg 06/13/2025 5:38 AM [facility] MCHC 34.7 32.3 - 36.5 g/dL 06/13/2025 5:38 AM [facility] RDW 13.1 11.0 - 14.5 % 06/13/2025 5:38 AM [facility] RDW-STDEV 38.5 36.9 - 56.9 fL 06/13/2025 5:38 AM [facility] PLATELETS 263 130 - 400 K/uL 06/13/2025 5:38 AM [facility] MPV 11.2 10.0 - 14.8 fL 06/13/2025 5:38 AM [facility] NEUTROPHILS 51 34 - 68 % 06/13/2025 5:38 AM [facility] LYMPHOCYTES 39 22 - 53 % 06/13/2025 5:38 AM [facility] MONOCYTES 7 5 - 12 % 06/13/2025 5:38 AM [facility] EOSINOPHILS 2 1 - 7 % 06/13/2025 5:38 AM [facility] BASOPHILS 1 0 - 1 % 06/13/2025 5:38 AM [facility] IMMATURE GRANULOCYTES 0 % 06/13/2025 5:38 AM [facility] NEUTROPHIL ABSOLUTE 5.78(H) 1.78 - 5.38 K/uL 06/13/2025 5:38 AM [facility] LYMPHOCYTE ABSOLUTE 4.48(H) 1.20 - 3.40 K/uL 06/13/2025 5:38 AM [facility] MONOCYTE ABSOLUTE 0.84(H) 0.30 - 0.82 K/uL 06/13/2025 5:38 AM CDT [facility] EOSINOPHIL ABSOLUTE 0.18 0.04 - 0.54 K/uL 06/13/2025 5:38 AM CDT [facility] BASOPHILS ABSOLUTE 0.07 0.01 - 0.08 K/uL 06/13/2025 5:38 AM CDT [facility] IMMATURE GRANULOCYTES ABSOLUTE 0.03 K/uL 06/13/2025 5:38 AM CDT [facility] Blood BLOOD SPECIMEN / Unknown Collection / Unknown 06/13/2025 5:15 AM CDT 06/13/2025 5:25 AM CDT us Levy Estrada MD HEMATOLOGY ORDERABLES Final Result Performing Organization Address City/[facility]/ZIP Co de Phone Number [facility] CLIA # [id number] [address] [place] [phone] * PTT (06/13/2025 5:15 AM CDT) PTT 26.2 25.1 - 35.4 seconds 06/13/2025 9:01 AM CDT [facility] Blood BLOOD SPECIMEN / Unknown Collection / Unknown 06/13/2025 5:15 AM CDT 06/13/2025 8:48 AM CDT us Quinton Portillo MD HEMATOLOGY ORDERABLES Final Res ult [facility] CLIA # [id number] [address] [place] [id number] * PROTIME-INR (06/13/2025 5:15 AM CDT) PROTIME 12.7 12.1 - 14.3 Seconds 06/13/2025 9:01 AM CDT [facility] INR 1.0 0.9 - 1.1 06/13/2025 9:01 AM CDT [facility] Blood BLOOD SPECIMEN / Unknown Collection / Unknown 06/13/2025 5:15 AM CDT 06/13/2025 8:48 AM CDT us Quinton Portillo MD HEMATOLOGY ORDERABLES Final Res ult Performing Organization Address City/[facility]/ZIP Co de Phone Number [facility] CLIA # [id number] [address] [place] [phone] * D-DIMER (06/13/2025 5:15 AM CDT) D-DIMER QUANT <0.15 <0.50 ug/mL FEU 06/13/2025 9:01 AM CDT [facility] Blood BLOOD SPECIMEN / Unknown Collection / Unknown 06/13/2025 5:15 AM CDT 06/13/2025 8:48 AM CDT Narrative [facility] - 06/13/2025 9:01 AM CDT D-Dimer [...] 71-80 years: 0.71-0.80 ug/mL FEU us Quinton Portillo MD HEMATOLOGY ORDERABLES Final Res ult Performing Organization Address City/[facility]/ZIP Co de Phone Number [facility] CLIA # [id number] [address] [place] [phone] * (ABNORMAL) TSH (06/13/2025 5:15 AM CDT) TSH 4.62(H) 0.27 - 4.20 uIU/mL 06/13/2025 9:12 AM CDT [facility] Blood BLOOD SPECIMEN / Unknown Collection / Unknown 06/13/2025 5:15 AM CDT 06/13/2025 5:25 AM CDT Quinton Portillo MD CHEMISTRY ORDERABLES [facility]u [id number] [address] [place] [address] * BRAIN NATRIURETIC PEPTIDE, BNP OR PROBNP (06/13/2025 5:15 AM CDT) PROBNP, N TERMINAL <36 0 - 125 pg/mL 06/13/2025 9:12 AM CDT [facility] Comment: INTERPRETIVE COMMENT based on diagnosis: [...] CDT 06/13/2025 5:25 AM CDT us Quinton Portillo MD CHEMISTRY ORDERABLES Final Resu lt [id number] [address] [place] [address] * MAGNESIUM LEVEL (06/13/2025 5:15 AM CDT) MAGNESIUM 1.6 1.6 - 2.6 mg/dL 06/13/2025 9:12 AM CDT [facility] Blood BLOOD SPECIMEN / Unknown Collection / Unknown 06/13/2025 5:15 AM CDT 06/13/2025 5:25 AM CDT us Quinton Portillo MD CHEMISTRY ORDERABLES Final Resu lt [facility] CLIA # [id number] [address] [place] [address] * (ABNORMAL) COMPREHENSIVE METABOLIC PANEL (06/13/2025 5:15 AM CDT) SODIUM 132(L) 136 - 145 mmol/L 06/13/2025 5:40 AM [facility] POTASSIUM 4.2 3.5 - 5.1 mmol/L 06/13/2025 5:40 AM [facility] CHLORIDE 97(L) 98 - 107 mmol/L 06/13/2025 5:40 AM [facility] CO2 24 22 - 29 mmol/L 06/13/2025 5:40 AM [facility] CALCIUM 9.9 8.6 - 10.0 mg/dL 06/13/2025 5:40 AM [facility] BUN 13 6 - 20 mg/dL 06/13/2025 5:40 AM [facility] CREATININE 0.67 0.67 - 1.17 mg/dL 06/13/2025 5:40 AM [facility] GLUCOSE 224(H) 74 - 99 mg/dL 06/13/2025 5:40 AM [facility] TOTAL PROTEIN 7.7 6.6 - 8.7 g/dL 06/13/2025 5:40 AM [facility] ALBUMIN 4.3 3.5 - 5.2 g/dL 06/13/2025 5:40 AM [facility] BILIRUBIN TOTAL 0.6 0.0 - 1.2 mg/dL 06/13/2025 5:40 AM [facility] ALKALINE PHOSPHATASE 86 40 - 129 U/L 06/13/2025 5:40 AM CDT [facility] AST 17 0 - 50 U/L 06/13/2025 5:40 AM CDT [facility] ALT 11 0 - 50 U/L 06/13/2025 5:40 AM CDT [facility] GFR >60 >=60 mL/min/1.7 3 sq meter 06/13/2025 5:40 AM CDT [facility] Comment:eGFR calculated with 2020 CKD-EPI equation. Vegetarian diet, extremely high or low muscle mass, and may affect results. Cystatin C with Glomerular Filtration Rate is a suitable alternative for these patients. ANION GAP 11 5 - 20 mmol/L 06/13/2025 5:40 AM CDT [facility] Blood BLOOD SPECIMEN / Unknown Collection / Unknown 06/13/2025 5:15 AM CDT 06/13/2025 5:25 AM CDT Levy Estrada MD CHEMISTRY ORDERABLES Final Result [facility] CLIA # [id number] [address] [place] [address] * HEMOGLOBIN A1C (12/19/2020 7:00 AM DEEP FAT FRY COOK) ABSTRACTED HGB A1C 12.2 EXTERNAL LAB HEMOGLOBIN A1C ^ EXTERNAL LAB HEMOGLOBIN A1C EXTERNAL LAB GLUCOSE, MEAN BLOOD EXTERNAL LAB Blood 12/19/2020 7:00 AM DEEP FAT FRY COOK us Ottoniel ALMAGUER CHEMISTRY ORDERABLES Final Re sult EXTERNAL LAB from Last 3 Months or Most Recently Relevant to Health Maintenance Insurance [facility] [address] [place] [phone] Care Teams Pin Sorter And Bagger Relationship Specialty Start Date End Date Jojo Regalado MD [address] [address] PCP - General Family Practice 05/20/18
--- OUTSIDE RECORDS SUMMARY | 2025-06-13 09:39 | XMS_ITS | Encounter Summary ---
Author Organization [facility] Address [address] 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
--- OUTSIDE RECORDS SUMMARY | 2025-06-13 09:39 | XMS_ITS | Encounter Summary ---
Author Organization [facility] Address [address] [place] [address] Care Team Providers Care Photographic Aide Name Role Phone Jojo Regalado MD Primary Care Provider +[phone]- [phone] Encounter Details Date Type Department Care Team (Late st Contact Info) Description 11/26/2007 Outpatient Historical [facility] 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
--- OUTSIDE RECORDS SUMMARY | 2025-06-13 09:39 | XMS_ITS | Encounter Summary ---
Author Organization [facility] Address [address] [place] [address] Care Team Providers Care Contour Grinder Name Role Phone Jojo Regalado MD Primary Care Provider +1- [phone] Encounter Details Date Type Department Care Team (Late st Contact Info) Description 04/06/2008 Outpatient Historical [facility] [address] [place] [phone] Max Pompa MD [address] [place] [address] Social History Tobacco Use Types Packs/Day Years Used Date Smoking Tobacco: Never Assessed Sex and Gender Information Value Date Recorded Sex Assigned at Not on file 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 Findings: Comparison dated 12/24/07. The fracture site of the proximal phalanx of the second digit remains in near anatomic alignment. Irregular lucency persists across the mid diaphysis of the phalanx. There is some bony buttressing at the medial and lateral margins of the fracture site. I see no new abnormality. Impression: Stable alignment and evidence of progressive bony buttressing and/or healing of the fracture site however with persistent lucency suggestive of partial nonunion. - Dictated By: Aidee Bell M.D. Electronically Signed By: Aidee Bell M.D. Date Signed: 04/23/08 SDM Procedure Note Evan Bell - 05/06/2008 Exam: Finger(s) - Rt Date/Time of Exam: Apr 12, 2008 1:12:03 PM History: Injury. Findings: Comparison dated 12/24/07. The fracture site of the proximalphalanx of the second digit remains in near anatomic alignment. Irregular lucency persists across the middiaphysis of the phalanx. There is some bony buttressing at the medial and lateral margins of the fracturesite. I see no new abnormality. Impression: Stable alignment and evidence of progressive bony buttressingand/or healing of the fracture site however with persistent lucency suggestive of partial nonunion. - Dictated By: Aidee Bell M.D. Electronically Signed By: Aidee Bell M.D. Date Signed: 04/23/08 SDM Max Pompa MD DIAGNOSTIC IMAGING ORDERABLES Fi nal Result documented in this encounter Visit Diagnoses Not on filedocumented in this encounter Care Teams Contour Grinder Relationship Specialty Start Date End Date Jojo Regalado MD [address] [address] PCP - General Family Practice 05/20/18 documented as of this encounter
--- NOTE | 2025-06-13 09:41 | P.HP_ITS ---
Providers/Chief Complaint Admitting Physician: Hamilton Terrell MD/ Interventional Cardiology Primary Care Provider: Ottoniel Graf Chief Complaint: STEMI- History of Present Illness Baldemar Mahoney is a 54 year old male with past medical history of diabetes who has been having on and off chest pain symptoms for the last 4 to 5 days. This morning the pain got severe and he went to the emergency room at outside hospital. Initial EKG did not show STEMI. Subsequent EKG performed at 8:14 AM showed inferior wall ST elevation [place]. Patient transferred and brought directly to the cardiac [employer]. Review of Systems Card: Reports: chest pain Medications/Allergies Home Medications ?Medication ?Instructions ?Recorded ?Confirmed ?Last Taken ?Type aspirin 81 mg tablet,delayed 81 mg PO DAILY 10/25/21 0 12/09/22 Unknown History release fluticasone propionate 50 1 spray intranasal BID PRN n marcelina 10/25/21 12/09/22 Unknown History mcg/actuation nasal congestion spray,suspension (Flonase Allergy Relief) loratadine 10 mg tablet (Claritin) 10 mg PO BID 12/09/22 Unknown History meloxicam 15 mg tablet 15 mg PO DAILY 90 days #90 t abs 10/25/21 12/09/22 Unknown Rx pen needle, diabetic 32 gauge x #100 ea 10/25/2112/09 Unknown Rx 3/16 (CareTouch Pen Needle) omeprazole 20 mg capsule,delayed 20 mg PO DAILY #90 ca ps 12/09/22 12/09/22 Unknown Rx release rosuvastatin 5 mg tablet (Crestor) 5 mg PO DAILY 90 da ys #90 tabs 12/09/22 12/09/22 Unknown Rx semaglutide (weight loss) 0.25 0.25 mg (0.5 mL) SUBCUT Q7D #2 mL 12/26/22 Unknown Rx mg/0.5 mL subcutaneous pen injector glipizide 5 mg tablet See Rx Instructions .Route 1 11/23/22 Unknown Rx .COMPLEX #60 tabs levothyroxine 200 mcg tablet See Rx Instructions .Rout e 10/06/23 Unknown Rx .COMPLEX #30 tabs Allergies Allergy/AdvReac Type Severity Reaction Status Date / Time metformin AdvReac ADR-Drowsy Verified 12/09/22 08:18 PFSH Acute PFSH: Medical History Arthritis pain Mixed hyperlipidemia GERD (gastroesophageal reflux disease) Arthritis Hypothyroidism, postradioiodine therapy Diabetes mellitus, type II Medication management Lower respiratory infection Social History Smoking and tobacco/nicotine status: current every day tobacco/nicotine user Physical Exam Narrative: GENERAL: Patient is alert, awake and oriented x3. HEART: Regular S1 and S2. No murmur, rub or gallop. LUNGS: Clear to auscultate bilaterally. CENTRAL NERVOUS SYSTEM: Grossly nonfocal. EXTREMITIES: Lower extremities with out edema bilaterally. A&P Assessment and plan 1. STEMI (ST elevation myocardial infarction): 2. Mixed hyperlipidemia: 3. Diabetes mellitus, type II: Plan: Patient was presented with acute inferior wall ST elevation [place]. Going directly to cardiac [employer] from outside hospital. Initial 2 troponins did not trend up significantly however serial EKGs showed ST elevation [place]. Patient has been loaded with aspirin and Plavix. Heparin bolus has been given. Postprocedure we will consult medicine team to help with management of medical issues. Order echocardiogram PDMP PDMP Reviewed: Not Reviewed Attestations Medical Necessity Statement*: Care expected to cross 2 midnights. Patient has presented with acute inferior wall ST elevation [place] Coding Level of Care Code Acute Code for [facility] Diagnoses STEMI (ST elevation myocardial infarction) I21.3 Mixed hyperlipidemia E78.2 Diabetes mellitus, type II E11.9
--- NOTE | 2025-06-13 09:44 | PC.NURSE ---
PT DIRECT ADMIT FROM [facility] FOR STEMI. PT STABLE UPON ARRIVAL TO ED DOORS, PT TRANSPORTED DIRECTLY TO MEMBERSHIP ASSISTANT FROM ED DOORS.
--- NOTE | 2025-06-13 10:51 | PM.PROC ---
Procedure Note: Date of procedure: 06/13/25 Pre-procedure diagnosis: STEMI Post-procedure diagnosis: other (Subtotal occlusion of large OM 2 s/p PCI with 2 stents. Severe stenosis of mid RCA s/p PCI with 1 stent) Procedure: Subtotal occlusion of large OM 2 s/p PCI with 2 stents. Severe stenosis of mid RCA s/p PCI with 1 stent. LAD is a small sized vessel. Dual antiplatelet therapy with aspirin and plavix High intensity statin therapy Performing Provider: Hamilton Terrell Estimated blood loss (mL): 10 Complications: None Condition: stable Disposition: ICU Coding Level of Care Code Acute Code for Mark Banerjee
--- NOTE | 2025-06-13 10:52 | USCV_ITS ---
Baldemar Mahoney Age: 54 Gender: M : 1970 Exam Date: 06/13/2025 14:04 Ordering Phys: Mickie Winston Technologist: KAYLEE Exam Location: [facility] Indication: STEMI BP: 135 / 91 HR: 67 Rhythm: Sinus Technical Quality: Adequate MEASUREMENTS (Male / Female) Normal Values 2D ECHO LV Diastolic Diameter PLAX 4.2 cm 4.2 - 5.9 / 3.9 - 5.3 cm IVS Diastolic Thickness 1.1 cm 0.6 - 1.0 / 0.6 - 0.9 cm IVS Systolic Thickness 1.9 cm LVPW Diastolic Thickness 1.8 cm 0.6 - 1.0 / 0.6 - 0.9 cm LVPW Systolic Thickness 2.1 cm LVOT Diameter 2.0 cm LV Ejection Fraction 2D Teich 54.5 % LV Ejection Fraction MOD 4C 56.4 % LV Ejection Fraction MOD 2C 52.6 % LV Ejection Fraction 2C AL 52.7 % LA Diameter 2.8 cm RA Systolic Volume 4C AL 25.5 ml RA Systolic Volume 4C MOD 24.4 ml LA Sys Volume AL 41.1 cm cubed LA Sys Volume Index AL 17.8 cm cubed/m squared Aorta at Sinotubular Diameter 3.2 cm M-MODE LA Ao Ratio MM 1.5 AV Cusp Separation MM 1.7 cm DOPPLER AV Peak Velocity 120.0 cm/s LVOT Peak Velocity 107.0 cm/s AV Area Cont Eq vti 2.6 cm squared AV Area Cont Eq pk 2.7 cm squared MV Peak Velocity 104.0 cm/s MV Area PHT 4.6 cm squared Mitral E to A Ratio 0.7 TR Peak Velocity 82.0 cm/s TR Peak Gradient 2.7 mmHg TV Peak E Velocity 72.0 cm/s PV Peak Velocity 98.0 cm/s FINDINGS Left Ventricle Normal left ventricular size and systolic function, EF 55%. Mild left ventricular hypertrophy. No regional wall motion abnormalities. Grade I/IV diastolic dysfunction (abnormal relaxation filling pattern), normal to mildly elevated filling pressures. Right Ventricle Normal right ventricular size and systolic function. Right Atrium The right atrium is normal in size. Left Atrium The left atrium is normal in size. Mitral Valve No gross abnormalities noted Aortic Valve No gross abnormalities noted Tricuspid Valve No gross abnormalities noted Pulmonic Valve Pulmonic valve not well visualized. Pericardium No pericardial effusion. Aorta Normal aortic annulus size. IVC Inferior vena cava not visualized. CONCLUSIONS Normal left ventricular size and systolic function, EF 55%. Mild left ventricular hypertrophy. No regional wall motion abnormalities. Grade I/IV diastolic dysfunction (abnormal relaxation filling pattern), normal to mildly elevated filling pressures. Normal cardiac chamber sizes. There is no pericardial effusion. No significant valvular lesions No similar previous studies are available for comparison Dr Valery Soliz MD FACC (Electronically Signed) Final Date: 13 June 2025 18:33 S
--- NOTE | 2025-06-13 13:24 | PM.CONSULT ---
Providers/Reason For Consult Consulting Physician/Specialty*: Hospitalist Reason for Consult*: DM Attending Physician: Hamilton Terrell M.D Primary Care Provider: Wandy Johnson NP History of Present Illness History of Present Illness Baldemar Mahoney is a 54 year old male gentleman with history of type 2 diabetes mellitus (DM2), hyperlipidemia (HLD), gastroesophageal reflux disease (GERD), and active smoking who presented with chest pain. An electrocardiogram (ECG) at 8:[address]-elevation myocardial infarction (STEMI) at an outside facility. He was transferred, taken to the catheterization lab, and underwent percutaneous coronary intervention (PCI) with three stents placed (one to the right coronary artery [RCA], two to the obtuse marginal 2 [OM2]). Currently feels fine without chest pain or pressure. Reports diabetes managed with glipizide; not on insulin and does not check blood glucose at home. Previously tried semaglutide (Ozempic) but could not tolerate due to gastrointestinal side effects; a new diabetes medication has been prescribed but is pending insurance approval. Takes omeprazole for GERD. Reports recent shingles treated with antiviral medication (acyclovir/valacyclovir), with pain and cutaneous sensitivity from the umbilicus to the back; rash never erupted. Denies fever, chills, sneezing, coughing, nausea, vomiting, diarrhea, melena, hematochezia, hematuria, leg swelling, or orthopnea. Sleep apnea noted; prescribed continuous positive airway pressure (CPAP) but cannot tolerate it. Access for the procedure was via the wrist. Blood pressure reported by paramedics earlier as 127/76 mmHg. Socially, drinks alcohol; denies recreational drug use; lives with and three children; active smoker. Review of Systems Const: Denies: fever(s), chills, body aches or malaise ENMT: Denies: throat pain Card: Reports: chest pain; Denies: edema, pre-syncope or dyspnea on exertion Resp: Denies: dyspnea, productive cough, change in phlegm color or hemoptysis GI: Denies: abdominal pain, nausea, vomiting, diarrhea, constipation, hematochezia or melena : Denies: flank pain, difficulty urinating, urinary frequency or hematuria Musc: Denies: back pain, joint swelling or joint redness Skin/Breast: Denies: rash or new lesions Neuro: Denies: headache(s) or confusion Medications/Allergies Home Medications ?Medication ?Instructions ?Recorded ?Confirmed ?Last Taken ?Type fluticasone propionate 50 1 spray intranasal BID PRN nasal 10/25/21 06/13/25 Unknown History mcg/actuation nasal congestion spray,suspension (Flonase Allergy Relief) loratadine 10 mg tablet (Claritin) 10 mg PO BID 10/25/21 06/13/25 06/12/25 History meloxicam 15 mg tablet 15 mg PO DAILY 90 days #90 tabs 10/25/21 06/13/25 06/12/25 Rx pen needle, diabetic 32 gauge x #100 ea 10/25/21 06/13/25 Unknown Rx 3/16 (CareTouch Pen Needle) omeprazole 20 mg capsule,delayed 20 mg PO DAILY #90 caps 12/09/22 06/13/25 06/12/25 Rx release glipizide 5 mg tablet 10 mg PO BID 06/13/25 06/13/25 06/12/25 History levothyroxine 150 mcg tablet 150 mcg PO QAM 06/13/25 06/13/25 06/12/25 History Allergies Allergy/AdvReac Type Severity Reaction Status Date / Time metformin AdvReac ADR-Drowsy Verified 12/09/22 08:18 Current Medications Generic Name Dose Route Start Last Admin Trade Name Freq PRN Reason Stop Dose Admin Sodium Chloride 1,000 mls @ 100 mls/hr 06/13/25 11:00 06/13/25 10:56 Sodium Chloride 0.9% IV 100 mls/hr .Q10H MCKENZIE Administration PFSH Acute PFSH: Medical History Arthritis pain Mixed hyperlipidemia GERD (gastroesophageal reflux disease) Arthritis Hypothyroidism, postradioiodine therapy Diabetes mellitus, type II Medication management Lower respiratory infection Social History Smoking and tobacco/nicotine status: current every day tobacco/nicotine user Vitals/I&O/Wt Last Vital Signs Temp 97.7 F 06/13/25 11:10 Pulse 70 06/13/25 11:10 Resp 15 06/13/25 11:10 BP 135/91 06/13/25 11:10 Pulse Ox 99 06/13/25 11:10 O2 Del Method Room Air 06/13/25 11:10 Weight last 48 hrs Weight 105.868 kg Weight 105.8 kg Physical Exam Narrative: Current chest pain. Const: COMMON NORMALS: patient oriented x3 and alert GENERAL APPEARANCE: cooperative ORIENTATION/CONSCIOUSNESS: Yes awake HENMT: COMMON NORMALS: oropharynx normal Neck/C-Spine: COMMON NORMALS: no JVD Resp: COMMON NORMALS: normal respiratory effort and clear to auscultation bilaterally AUSCULTATION: clear to auscultation bilaterally Cardio: COMMON NORMALS: no JVD, regular rhythm, S1 normal heart sound present, S2 normal heart sound present and No murmurs present (Cardio) RHYTHM: regular rhythm HEART SOUNDS: S1 normal heart sound present and S2 normal heart sound present GI: COMMON NORMALS: Normal to inspection, nondistended, normoactive bowel sounds present, Soft to palpation and non-tender PALPATION: Yes Soft to palpation Extremity: COMMON NORMALS: no joint enlargement and no pedal edema NARRATIVE EXTREMITY EXAM: Right wrist TR band. Right hand perfused. Neuro: COMMON NORMALS: patient oriented x3 and moves all extremities SENSORIUM/ORIENTATION: Yes alert Skin: COMMON NORMALS: no rashes or lesions noted GENERAL SKIN EXAM: no rashes or lesions noted A&P Assessment and plan 1. STEMI (ST elevation myocardial infarction): Continue post STEMI care. No issues with access site. ST-elevation myocardial infarction (STEMI), status post PCI with drug-eluting stents (1 to RCA, 2 to OM2) : Transferred after STEMI identified on ECG; underwent coronary angiography showing subtotal occlusion of a large OM2 branch (two stents placed), severe mid-RCA disease (one stent placed); left anterior descending (LAD) described as small caliber. Started on aspirin, clopidogrel (Plavix), and heparin bolus. Cardiology recommends continued dual antiplatelet therapy (DAPT), high-intensity statin, and beta claudia. Patient currently without chest pain. Discussed with cardiology, reviewed vitals, cardiology note, PTT, cath report. - Continue dual antiplatelet therapy (aspirin and clopidogrel); discussed with him - do not discontinue (discussed stent thrombosis risk) - Continue coagulation, monitor physical bleeding. - Continue high-intensity statin - Consider beta claudia - Continue post-angiogram care after STEMI - Monitor telemetry due to risk of reperfusion arrhythmias - Monitor blood pressure (not hypertensive at this time) - Reassess chemistry with risk of contrast nephropathy Plan: Type 2 diabetes mellitus, suboptimally controlled : Known DM2 on glipizide at home; not on insulin; does not check blood glucose; prior intolerance to semaglutide (Ozempic); new diabetes medication pending insurance approval. Inpatient oral agents to be held post-angiography due to potential kidney function fluctuation. - Continue low-dose sliding-scale insulin while inpatient - Monitor blood glucose; consistent carbohydrate diet - Resume home diabetes medication after hospitalization (as previously discussed) - Continue to optimize diabetes control and follow up with primary provider - Reassess renal function due to contrast nephropathy risk Hyperlipidemia : History of HLD; high-intensity statin recommended post-PCI. - Continue high-intensity statin Gastroesophageal reflux disease : History of GERD; uses omeprazole at home. - Continue proton pump inhibitor (PPI) Tobacco use disorder : Smoking cessation for 3-1/2 minutes. Discussed risks. Active smoker, understands risks and need for quitting; cessation discussed including health risks; offered nicotine replacement while inpatient. - Nicotine replacement as needed for smoking cessation - Continue to encourage cessation Obstructive sleep apnea (CPAP-intolerant) : Reports CPAP intolerance with sensation of suffocation and mask removal during sleep. Recent herpes zoster (shingles) : Recently treated with antiviral therapy; pain/sensitivity persisted without rash eruption. Follow-up : Follow-up discussed in context of diabetes management. - Follow up with primary provider PDMP PDMP Reviewed: Not Reviewed Consult Attestations Medical Necessity Statement: Continue admission of over 2 midnights for assessment management of STEMI and High MDM includes amount and/or complexity of data reviewed/ordered [ previous or external records, resulted lab(s)/test(s), ordered lab(s)/test(s) and other healthcare professional discussion] and described risk of complication, morbidity or mortality of management as documented Diagnoses STEMI (ST elevation myocardial infarction) I21.3
[2025-06-13 14:06] LABS: Partial Thromboplastin Time 36.3 SECONDS (23.9-36.7)
[2025-06-13 19:55] LABS: Estmated Average Glucose 249; Hemoglobin A1C 10.3 % (4.0-6.0)
[2025-06-14] VITALS (11 sets, daily range): BP systolic 117–158; BP diastolic 77–94; PULSE 65–78; RESP 13–21; TEMP 36.4–36.5; O2SAT 92–100
[2025-06-14 03:58] LABS: Hematocrit 49.3 % (37-53); Hemoglobin 16.30 g/dL (11.27-16.99); Mean Corpuscular HGB Conc 33.1 g/dL (30-55); Mean Corpuscular Hemoglobin 28.2 pg (27-33); Mean Corpuscular Volume 85.3 fl (82-101); Nucleated Red Blood Cells % 0 %; Platelet Count 221 10^3/cmm (157-399); Red Blood Count 5.78 10^6/uL (3.85-5.65); White Blood Count 10.64 10^3/uL (3.29-11.43)
[2025-06-14 04:33] LABS: Anion Gap 16.9 (5-19); Blood Urea Nitrogen 14 mg/dL (6-20); Calcium 9.3 mg/dL (8.5-10.5); Carbon Dioxide 23 mmol/L (22-29); Chloride 99 mmol/L (98-107); Creatinine Clr Calc Pharmacy 172.6739; Glucose 212 mg/dL (65-115); Osmolality Calculated 287 mOsm/kg (285-295); Potassium 3.9 mmol/L (3.5-5.1); Sodium 135 mmol/L (136-145)
--- NOTE | 2025-06-14 08:48 | P.DS_ITS ---
Discharge Providers Date of Admission: 06/13/25 10:51 Date of Discharge: June 14, 2025 Attending Provider at Admission: Hamilton Terrell M.D Attending Provider at Discharge: Hamilton Terrell M.D Consults: Dr Hudson Primary Care Provider: Wandy Johnson NP Diagnoses at Discharge Discharge Diagnosis 1. STEMI (ST elevation myocardial infarction): Reason for Visit Reason for Visit: STEMI- Brief History: Baldemar Mahoney is a 54 year old male with past medical history of diabetes who has been having on and off chest pain symptoms for the last 4 to 5 days. This morning the pain got severe and he went to the emergency room at outside hospital. Initial EKG did not show STEMI. Subsequent EKG performed at 8:14 AM showed inferior wall ST elevation AK. Patient transferred and brought directly to the cardiac Credit Risk Manager. Hospital Course Hospital Course He underwent coronary angiogram yesterday, revealing subtotal occlusion of large OM 2 treated with DANN x 2. Severe stenosis of mid RCA treated with 1 stent. LAD is a small sized vessel. He has done well overnight, no recurrence of chest pain or shortness of breath since the procedure. No complications with right radial cath site. Will start him on low dose beta claudia post STEMI, continuing aspirin and Plavix. We discussed the importance of taking aspirin and Plavix every day and not to miss a single dose. Atorvastatin 40mg daily continued. He will follow up with Dr Terrell in office, as well as with his primary care provider for diabetes management. He would like to be referred to cardiac rehab at [facility]. We will arrange from the clinic. Physical Exam Const: COMMON NORMALS: no acute distress and patient oriented x3 GENERAL APPEARANCE: cooperative ORIENTATION/CONSCIOUSNESS: Yes awake, Yes oriented to person, Yes oriented to place and Yes oriented to time Chest: COMMONS NORMALS: normal inspection of the chest and normal palpation of entire chest wall CHEST: Yes Symmetrical chest wall rise Resp: COMMON NORMALS: normal respiratory effort, No retractions, No use of accessory muscles and clear to auscultation bilaterally AUSCULTATION: clear to auscultation bilaterally Cardio: COMMON NORMALS: regular rate, regular rhythm, S1 normal heart sound present, S2 normal heart sound present, No gallops present (Cardio), No clicks present (Cardio), No murmurs present (Cardio) and No rub (Cardio) RATE: regular rate RHYTHM: regular rhythm HEART SOUNDS: S1 normal heart sound present and S2 normal heart sound present PERIPHERAL PULSES: radial pulses present positive right 2+ and femoral pulses present positive right 2+ Neuro: COMMON NORMALS: patient oriented x3 and moves all extremities SENSORIUM/ORIENTATION: Yes oriented to person, Yes oriented to place and Yes oriented to time Skin: WOUNDS: Yes surgical site (no hematoma palpable) Details: no odor Discharge Data Studies Completed and Pending Completed Studies During Hospitalization Category Date Time Status CV. echo complete* [id number] Routine Ultrasound 06/13/25 10:52 Completed Pending at discharge Category Date Time Status DEFENSIVE SECONDARY COACH request for service Stat Exams 06/13/25 09:37 Taken Laboratory Results WBC 10.64 10^3/uL (3.29-11.43) 06/14/25 03:19 RBC 5.78 10^6/uL (3.85-5.65) H 06/14/25 03:19 Hgb 16.30 g/dL (11.27-16.99) 06/14/25 03:19 Hct 49.3 % (37-53) 06/14/25 03:19 MCV 85.3 fl (82-101) 06/14/25 03:19 MCH 28.2 pg (27-33) 06/14/25 03:19 MCHC 33.1 g/dL (30-55) 06/14/25 03:19 RDW 13.2 % (12.1-15.1) 06/14/25 03:19 Plt Count 221 10^3/cmm (157-399) 06/14/25 03:19 MPV 11.4 fL (7.4-10.4) H 06/14/25 03:19 Neut % (Auto) 63.2 % 06/14/25 03:19 Lymph % (Auto) 28.5 % 06/14/25 03:19 [place] % (Auto) 6.6 % 06/14/25 03:19 Eos % (Auto) 0.8 % 06/14/25 03:19 Baso % (Auto) 0.5 % 06/14/25 03:19 Neut # (Auto) 6.73 10^3/uL (1.8-7.7) 06/14/25 03:19 Lymph # (Auto) 3.0 10^3/uL (0.8-4.8) 06/14/25 03:19 [place] # (Auto) 0.7 10^3/uL (0.2-0.9) 06/14/25 03:19 Eos # (Auto) 0.1 10^3/uL (0.0-0.8) 06/14/25 03:19 Baso # (Auto) 0.1 10^3/uL (0.0-0.1) 06/14/25 03:19 Nucleated RBC % (auto) 0 % 06/14/25 03:19 Nucleated RBCs # 0.0 /100WBC 06/14/25 03:19 APTT 36.3 SECONDS (23.9-36.7) 06/13/25 13:18 Sodium 135 mmol/L (136-145) L 06/14/25 03:19 Potassium 3.9 mmol/L (3.5-5.1) 06/14/25 03:19 Chloride 99 mmol/L (98-107) 06/14/25 03:19 Carbon Dioxide 23 mmol/L (22-29) 06/14/25 03:19 Anion Gap 16.9 (5-19) 06/14/25 03:19 BUN 14 mg/dL (6-20) 06/14/25 03:19 Creatinine 0.6 mg/dL (0.7-1.2) L 06/14/25 03:19 GFR Calculation 141.5 mL/min (90-130) H 06/14/25 03:19 Glucose 212 mg/dL (65-115) H 06/14/25 03:19 POC Glucose 242 mg/dL (70-110) H 06/14/25 07:29 Estimat Average Glucose 249 06/13/25 16:32 Hemoglobin A1c 10.3 % (4.0-6.0) H 06/13/25 16:32 Calculated Osmolality 287 mOsm/kg (285-295) 06/14/25 03:19 Calcium 9.3 mg/dL (8.5-10.5) 06/14/25 03:19 Vitals Last Vital Signs Temp 97.6 F 06/14/25 05:00 Pulse 69 06/14/25 06:00 Resp 15 06/14/25 05:00 BP 156/89 06/14/25 05:00 Pulse Ox 95 06/14/25 05:00 O2 Del Method Room Air 06/14/25 05:00 Discharge Plan Discharge Patient Disposition: Home Condition: Stable Prescriptions: New atorvastatin 40 mg Tablet 40 mg PO BEDTIME Qty: 90 1RF clopidogrel 75 mg Tablet 75 mg PO DAILY Qty: 90 3RF aspirin 81 mg Tablet,Delayed Release (Dr/Ec) 81 mg PO DAILY Qty: 90 3RF pantoprazole 40 mg Tablet,Delayed Release (Dr/Ec) 40 mg PO DAILY Qty: 30 1RF metoprolol succinate 25 mg tablet extended release 24 hr 25 mg PO DAILY Qty: 90 1RF Continued loratadine [Claritin] 10 mg tablet 10 mg PO BID fluticasone propionate [Flonase Allergy Relief] 50 mcg/actuation spray,suspension 1 spray intranasal BID PRN (Reason: nasal congestion) Rx Instructions: administer into each nostril (DME) pen needle, diabetic [CareTouch Pen Needle] 32 gauge x 3/16 needle See Rx Instructions .Route Qty: 100 2RF Rx Instructions: As directed levothyroxine 150 mcg tablet 150 mcg PO QAM glipizide 5 mg tablet 10 mg PO BID Held meloxicam 15 mg tablet 15 mg PO DAILY 90 Days Qty: 90 2RF Hold Instructions: discuss with primary doctor at follow up appointment Discontinued omeprazole 20 mg capsule,delayed release(DR/EC) 20 mg PO DAILY Qty: 90 2RF Discharge Order = DC NOW: Discharge Order (Routine); Ordered 06/14/25 Ordered By: Akbar Hudson Referrals: Hamilton Terrell M.D [Physician, Cardiology] - 06/26/25 2:00 pm Wandy Johnson NP [Primary Care Provider, Nurse Practitioner] - 06/19/25 1:00 pm Discharge Diet: Advance as tolerated, Cardiac and Diabetic Discharge Activity: Increase activity as tolerated Patient Instructions: Type 2 Diabetes, Metoprolol (By mouth), Aspirin (By mouth), Atorvastatin (By mouth) (Lipitor, Atorvaliq), Clopidogrel (By mouth) (Plavix), Pantoprazole (By mouth), Heart Attack (DC), Heart Healthy Diet (DC), Basic Carbohydrate Counting (DC), Meal Planning with the Plate Method (DC), Coronary Intravascular Stent Placement (DC), Type 2 Diabetes Management for Adults (DC), Opioid Safety, Post Angiogram Home Care Instructions, Post Heart Attack Stoplight, Patient Portal & Sara Instructions Activity Restrictions/Additional Instructions: No lifting over 5 pounds for the next 4 days. Discharge Date/Time: 06/14/25 10:06 Discharge Attestations Time Spent in Discharge Care*: less than 30 min Quality Metrics Clinical Quality Measures [ Acute Myocardial Infaction { Clinical Trial Participant: No; Contraindication to aspirin: None; Aspirin prescribed; Contraindication to statin: None; Statin prescribed; Contraindication to PCI: None; PCI performed;}] Coding Level of Care Code Acute Code for g Fwd Diagnoses STEMI (ST elevation myocardial infarction) I21.3
--- NOTE | 2025-06-14 09:32 | PM.PN ---
Subjective Subjective: He is doing well and has not had any recurrence of chest pain or pressure. No issues with the right hand or access site. Discussed with him and his regarding his A1c and he states that it is improving compared to prior. Vitals/I&O/Wt Last Vital Signs Temp 97.7 F 06/14/25 09:00 Pulse 72 06/14/25 09:00 Resp 17 06/14/25 09:00 BP 141/91 06/14/25 09:00 Pulse Ox 100 06/14/25 09:00 O2 Del Method Room Air 06/14/25 09:00 06/13/25 06/14/25 06/14/25 22:59 06:59 14:59 Intake Total 1440 / 1440 250 / 1690 1240 / 1240 Balance 1440 / 1440 250 / 1690 1240 / 1240 Weight last 48 hrs Weight 105.959 kg Weight 105.868 kg Weight 105.8 kg Physical Exam Const: COMMON NORMALS: patient oriented x3 and alert GENERAL APPEARANCE: cooperative ORIENTATION/CONSCIOUSNESS: Yes awake HENMT: COMMON NORMALS: oropharynx normal Neck/C-Spine: COMMON NORMALS: no JVD Resp: COMMON NORMALS: normal respiratory effort and clear to auscultation bilaterally AUSCULTATION: clear to auscultation bilaterally Cardio: COMMON NORMALS: no JVD, regular rhythm, S1 normal heart sound present, S2 normal heart sound present and No murmurs present (Cardio) RHYTHM: regular rhythm HEART SOUNDS: S1 normal heart sound present and S2 normal heart sound present GI: COMMON NORMALS: Normal to inspection, nondistended, normoactive bowel sounds present, Soft to palpation and non-tender PALPATION: Yes Soft to palpation Extremity: COMMON NORMALS: no joint enlargement and no pedal edema NARRATIVE EXTREMITY EXAM: Right hand perfused. Neuro: COMMON NORMALS: patient oriented x3 and moves all extremities SENSORIUM/ORIENTATION: Yes alert Skin: COMMON NORMALS: no rashes or lesions noted GENERAL SKIN EXAM: no rashes or lesions noted Data 06/14/25 03:19 06/14/25 03:19 A&P Assessment and plan 1. STEMI (ST elevation myocardial infarction): He is doing well and he is being discharged home by cardiology. Discussed with brass molder helper. Discussed optimization of risk factors and avoidance of NSAIDs with cardiovascular risks. Plan: Type 2 diabetes mellitus, suboptimally controlled : Reviewed vitals POC glucose, BMP, A1c. Discussed A1c with him and his and they state that it is improving. They are going to follow-up with his primary provider to continue optimization. Discussed with nursing, human services case manager. Hyperlipidemia : History of HLD; high-intensity statin recommended post-PCI. - Continue high-intensity statin Gastroesophageal reflux disease : History of GERD; uses omeprazole at home. - Continue proton pump inhibitor (PPI) Tobacco use disorder : Further discussed smoking cessation. He does not need nicotine replacement at this time. He does not feel any cravings currently he will follow-up with primary provider he might consider regarding Chantix as he had success with it in the past. Obstructive sleep apnea (CPAP-intolerant) : Reports CPAP intolerance with sensation of suffocation and mask removal during sleep. Recent herpes zoster (shingles) : Recently treated with antiviral therapy; pain/sensitivity persisted without rash eruption. Follow-up : Follow-up discussed in context of diabetes management. - Follow up with primary provider PDMP PDMP Reviewed: Not Reviewed Attestations Medical Necessity Statement*: Returning home. and High MDM includes amount and/or complexity of data reviewed/ordered [ resulted lab(s)/test(s) and other healthcare professional discussion] as documented Diagnoses STEMI (ST elevation myocardial infarction) I21.3
--- NOTE | 2025-06-14 10:14 | PC.NURSE ---
Patient was given all discharge instructions. Patient was given meds to beds and all information was given about medications. All Ivs were taken out. Patient was stable during discharge.
== END 2025-06-14 10:06 | disposition home or self-care (01) | DRG 322 ==
LOC: ER 09:37 → CCL 09:39 → ICU 10:52
PROVIDERS: Internal Medicine; Admitting Provider Internal Medicine; Emergency Provider Nurse Practitioner Family; PCP Nurse Practitioner Family; Visit Provider Internal Medicine
PROC: 027136Z Dilation of Coronary Artery, Two Arteries with Three Drug-eluting Intraluminal Devices, Percutaneous Approach (ICD-10-PCS; principal; 2025-06-13 09:30)
PROC: 027136Z Dilation of Coronary Artery, Two Arteries with Three Drug-eluting Intraluminal Devices, Percutaneous Approach (ICD-10-PCS; 2025-06-13 09:30)
DX: I21.19 ST elevation (STEMI) myocardial infarction involving other coronary artery of inferior wall (principal); E11.9 Type 2 diabetes mellitus without complications; E78.2 Mixed hyperlipidemia; E89.0 Postprocedural hypothyroidism; K21.9 Gastro-esophageal reflux disease without esophagitis; G47.33 Obstructive sleep apnea (adult) (pediatric); F17.200 Nicotine dependence, unspecified, uncomplicated; Z79.82 Long term (current) use of aspirin; Z79.84 Long term (current) use of oral hypoglycemic drugs
CPT/HCPCS: 36415; 36416; 80048; 82962; 83036; 85025; 85347; 85730; 93306; 93454; 96372; 99152; 99153; C1725; C1769; C1874; C1887; C1894; C9600; C9601; J1200; J1644; J1815; J2250; J3010; J3490; J7030; J9999; Q9967

== ENCOUNTER 2025-06-15 08:11 | Emergency (ER) | payer OTHER, SELFPAY ==
--- OUTSIDE RECORDS SUMMARY | 2025-06-13 05:26 | XMS_ITS | Encounter Summary ---
Author Organization [facility] Address [address] [place] [address] Care Team Providers Care Property Supervisor Name Role Phone Jojo Regalado MD Primary Care Provider [phone] Reason for Visit * Reason Comments Chest Pain Encounter Details Date Type Department Care Team (Late st Contact Info) Description 06/13/2025 5:26 AM CDT - 06/13/2025 9:06 AM CDT Emergency [facility] Emergency Medicine [address] [place] [address] Levy Estrada MD [address] [facility] [address] [place] [address] ST elevation myocardial infarction (STEMI), unspecified artery (CMS/HCC) (Primary Dx) Discharge Disposition: Acute Care Hospital Social History Tobacco Use Types Packs/Day Years Used Date Smoking Tobacco: Every Day Cigarettes Alcohol Use Standard Drinks/Week Comments No 0 (1 standard drink = 0.6 oz pur e alcohol) Feeling Safe Answer Date Recorded Are you in a relationship wi th someone who hurts you emotionally and/or physically? No 06/13/2025 Sex and Gender Information Value Date Recorded Sex Assigned at Not on file Legal Sex Male 3:11 AM [employer] SAL[employer] Gender Identity Not on file Sexual Orientation Not on file documented as of this encounter Last Filed Vital Signs Vital Sign Reading Time Taken Comments Blood Pressure 133/98 06/13/2025 9:00 AM CDT Pulse 71 06/13/2025 9:00 AM CDT Temperature 37.1 C (98.8 F) 06/13/2025 5:20 AM CDT Respiratory Rate 19 06/13/2025 9:00 AM CDT Oxygen Saturation 96% 06/13/2025 9:00 AM CDT Inhaled Oxygen Concentration - - Weight 107.2 kg (236 lb 6.4 oz) 06/13/2025 5:20 AM CDT Height 175.3 cm (5' 9 ) 06/13/2025 5:20 AM CDT Body Mass Index 34.91 06/13/2025 5:20 AM CDT documented in this encounter Medications at Time of Discharge levothyroxine (EUTHYROX) 200 mcg tabletIndications :Hypothyroidism following radioiodine therapy TAKE 1 TABLET BY MOUTH ONCE DAILY IN THE MORNING Needs appt prior to next refill 30 Tablet 05/02/2022 glipiZIDE (GLUCOTROL) 5 mg tablet Take 1 Tablet (5 mg) by mouth 2 times daily. Needs appt/lab prior to further refills to establish with new provider. 60 Tablet 12/12/2021 omeprazole (PriLOSEC) 40 mg Capsule, Delayed Release(E.C.) Take 1 Capsule (40 mg) by mouth daily. 90 Capsule 1 11/19/2020 documented as of this encounter Progress Notes * Rohan Amador RCP - 06/13/2025 8:58 AM CDT EKG completed. Results given to Dr. WRIGHT and scanned into [employer]. * Rohan Amador RCP - 06/13/2025 8:49 AM CDT REPEAT EKG completed. Results given to Dr. WRIGHT and scanned into [employer]. documented in this encounter ED Notes * Smiley Guzman RN - 06/13/2025 9:00 AM CDT Report given to EMS. * Monserrat Sanchez RN - 06/13/2025 8:45 AM CDT Dispatch notified of patient transfer at this time. * Lynn Cohen RCP - 06/13/2025 5:41 AM CDT EKG completed. Results given to Dr. Estrada and scanned into [employer]. * Bianca Jay RN - 06/13/2025 5:26 AM CDT Patient arrives PO ambulatory for c/o substernal chest pain that has been intermittent since last and constant since 429 this morning waking patient. Patient reports Ablation in 2009 and history of A-fib. Patient afebrile with even and unlabored respirations upon triage. * Lynn Cohen RCP - 06/13/2025 5:14 AM CDT EKG completed. Results given to Dr. Estrada and scanned into [employer]. * Quinton Wright MD - 06/13/2025 5:09 AM CDTAssociated Order(s): EKG 12-LEAD; EKG Interpretation HISTORY OF PRESENT ILLNESS Patient is a 54-year-old with a past medical history of atrial fibrillation status post ablation inGERD acquired hypothyroidism He is here accompanied by his with complaints of chest pain. He states his pain is central does not radiate waxing and waning but increasing in frequency. It started while he was driving it is correlated with movement but not exertion. At its worst it is a 5 out of 10 is currently a 1out of 10 It is dull and aching has not had this symptom before Does not take any medicine prior to arrival has been occasionally nauseous for the last 2 days but got this is not correlated with his pain No history of coronary artery disease does smoke does not have diabetes does not take high blood pressure medicine Denies shortness of breath abdominal pain or altered mental status Chest Pain PAST MEDICAL HISTORY REVIEWED MEDICAL: Patient has a past medical history of Atrial fibrillation (CMS/HCC), GERD (gastroesophageal reflux disease), other diseases, and Hypothyroidism following radioiodine therapy (01/23/2010). SURGICAL: Patient has a past surgical history that includes free skin graft; debridement; orif phalanx; surgical other; and orif femur. ALLERGIES Patient has no known allergies. PHYSICAL EXAM INITIAL VS BP: (!) 153/103 (06/13/25519), Heart Rate: 85 bpm (06/13/25519), Resp: 18 (06/13/25519), Pulse: 72 (06/13/25529), Temp: 98.8 ??F (37.1 ??C) (06/13/25519), Temp src: Oral (06/13/25519), SpO2: 96 % (06/13/25519), Height: 5' 9 (175.3 cm) (06/13/25519), Weight: 107.2 kg (236 lb 6.4 oz)(06/13/25519), BMI (Calculated): (!) 34.88 (06/13/25519) No LMP for male patient. Physical Exam Vitals and nursing note reviewed. Constitutional: General: He is not in acute distress. Appearance: He is obese. He is not ill-appearing, toxic-appearing or diaphoretic. HENT: Head: Normocephalic and atraumatic. Cardiovascular: Rate and Rhythm: Normal rate and regular rhythm. Pulses: Radial pulses are 2+ on the right side and 2+ on the left side. Heart sounds: Normal heart sounds. Pulmonary: Effort: Pulmonary effort is normal. Breath sounds: Normal breath sounds. Abdominal: Palpations: Abdomen is soft. Musculoskeletal: General: Normal range of motion. Cervical back: Normal range of motion and neck supple. Right lower leg: No edema. Left lower leg: No edema. Skin: General: Skin is warm and dry. Findings: No rash. Neurological: Mental Status: He is alert. DIAGNOSTICS LAB: CBC WITH DIFFERENTIAL - Abnormal Result Value WBC 11.4 (*) RBC 6.34 (*) HEMOGLOBIN 18.2 (*) HEMATOCRIT 52.4 (*) MCV 82.6 MCH 28.7 MCHC 34.7 RDW 13.1 RDW-STDEV 38.5 PLATELETS 263 MPV 11.2 NEUTROPHILS 51 LYMPHOCYTES 39 MONOCYTES 7 EOSINOPHILS 2 BASOPHILS 1 IMMATURE GRANULOCYTES 0 NEUTROPHIL ABSOLUTE 5.78 (*) LYMPHOCYTE ABSOLUTE 4.48 (*) MONOCYTE ABSOLUTE 0.84 (*) EOSINOPHIL ABSOLUTE 0.18 BASOPHILS ABSOLUTE 0.07 IMMATURE GRANULOCYTES ABSOLUTE 0.03 COMPREHENSIVE METABOLIC PANEL - Abnormal SODIUM 132 (*) POTASSIUM 4.2 CHLORIDE 97 (*) CO2 24 CALCIUM 9.9 BUN 13 CREATININE 0.67 GLUCOSE 224 (*) TOTAL PROTEIN 7.7 ALBUMIN 4.3 BILIRUBIN TOTAL 0.6 ALKALINE PHOSPHATASE 86 AST 17 ALT 11 GFR >60 ANION GAP 11 TROPONIN BASELINE, 5TH GEN - Abnormal TROPONIN T, BASELINE 5TH GEN 22 (*) TROPONIN 2 HR, 5TH GEN - Abnormal TROPONIN T, 2 HR 5TH GEN 23 (*) DELTA 2HR TROPONIN T 1 CBC WITHOUT DIFFERENTIAL PTT D-DIMER PROTIME-INR BRAIN NATRIURETIC PEPTIDE, BNP OR PROBNP TSH MAGNESIUM LEVEL RADIOLOGY: No orders to display EKG: PROCEDURES EKG 12-LEAD Date/Time: 06/13/2025 5:14 AM Performed by: Levy Estrada MD Authorized by: Levy Estrada MD Comments: Normal sinus rhythm rate of 81 mild right axis deviation subtle ST depressions in V5 but no contiguous or reciprocal changes No acute signs of's of infarct normal intervals EKG Interpretation Date/Time: 06/13/2025 5:41 AM Performed by: Levy Estrada MD Authorized by: Levy Estrada MD Rate: ECG rate: 71 ECG rate assessment: age appropriate Rhythm: Rhythm Origin: sinus Comments: Normal sinus rhythm incomplete right bundle branch block anterior changes have resolved normal axisand intervals MEDICAL DECISION MAKING AND PLAN OF CARE Medical Decision Making Patient is a 54-year-old here with chest pain Differential includes ACS, OH, pneumonia, costochondritis, shingles Will do cardiac workup including EKG troponins chest x-ray basic labs No acute distress at this time is essentially pain-free no shortness of breath nausea diaphoretic is well-appearing EKGs do not show any acute changes at this time Lab Results Component Value Date/Time NA 132 (L) 06/13/2025 05:15 AM K 4.2 06/13/2025 05:15 AM CL 97 (L) 06/13/2025 05:15 AM CO2 24 06/13/2025 05:15 AM CA 9.9 06/13/2025 05:15 AM BUN 13 06/13/2025 05:15 AM CREAT 0.67 06/13/2025 05:15 AM GLUCOSE 224 (H) 06/13/2025 05:15 AM TOTALPROTEIN 7.7 06/13/2025 05:15 AM ALBUMIN 4.3 06/13/2025 05:15 AM BILITOTAL 0.6 06/13/2025 05:15 AM ALKPHOS 86 06/13/2025 05:15 AM AST 17 06/13/2025 05:15 AM ALT 11 06/13/2025 05:15 AM ANIONGAP 11 06/13/2025 05:15 AM Lab Results Component Value Date/Time WBC 11.4 (H) 06/13/2025 05:15 AM HGB 18.2 (H) 06/13/2025 05:15 AM HCT 52.4 (H) 06/13/2025 05:15 AM PLT 263 06/13/2025 05:15 AM MCV 82.6 06/13/2025 05:15 AM TROPONIN T, BASELINE 5TH GEN Date Value Ref Range Status 06/13/2025 22 (H) <=15 ng/L Final Troponin mildly elevated remains pain-free will have to wait for second troponin Chest x-ray did not show any acute findings Care assumed by day team at 7:00 this morning Assumed care of the patient at 7am from the night team. Patient is currently pain free. Reviewed blood work and EKGs. Awaiting 2-hour troponin. The troponin at 2 hours was slightly up at 23 with delta +1, however patient's rhythm kept changingand patient continued to have discomfort in his chest. Another EKG was done showing left bundle branch block with ST-T segment abnormalities and then another EKG was obtained showing acute STEMI. Reached out to [facility] and the case was presented to the family protection specialist who recommended for the patient to be transferred to their lab as soon as possible. Started patient on heparin drip and provided with 600 mg of Plavix. Will transfer the patient as soon as EMS arrives. Amount and/or Complexity of Data Reviewed Labs: ordered. Radiology: ordered. ECG/medicine tests: ordered and independent interpretation performed. Risk OTC drugs. Prescription drug management. Clinical Scoring & Consults Medications Administered During the ED Stay from 06/13/2025 0509 to 06/13/2025 0807 Date/Time Order Dose Route Action 06/13/2025 0517 CDT aspirin ([place] CHEWABLE) chewable tablet 324 mg 324 mg Oral Given 06/13/2025 0847 CDT heparin in 0.45% NaCl 25,000 unit/250 mL infusion 11.7 Units/kg/hr IV New Bag Current Discharge Medication List CONTINUE these medications which have NOT CHANGED Details levothyroxine (EUTHYROX) 200 mcg tablet TAKE 1 TABLET BY MOUTH ONCE DAILY IN THE MORNING Needs appt prior to next refill Qty: 30 Tablet, Refills: 0 Comments: Needs appt prior to next refill Associated Diagnoses: Hypothyroidism following radioiodine therapy glipiZIDE (GLUCOTROL) 5 mg tablet Take 1 Tablet (5 mg) by mouth 2 times daily. Needs appt/lab priorto further refills to establish with new provider. Qty: 60 Tablet, Refills: 0 Comments: Needs appt/lab prior to further refills to establish with new provider. omeprazole (PriLOSEC) 40 mg Capsule, Delayed Release(E.C.) Take 1 Capsule (40 mg) by mouth daily. Qty: 90 Capsule, Refills: 1 STOP taking these medications metFORMIN (GLUCOPHAGE) 1,000 mg tablet Comments: Reason for Stopping: fluticasone propionate (FLONASE) 50 mcg/spray [place], Suspension nasal inhaler Comments: Reason for Stopping: LAST VS BP: (!) 127/97 (06/13/25799), Heart Rate: 74 bpm (06/13/25799), Resp: 15 (06/13/25799), Pulse: 73 (06/13/25799), Temp: 98.8 ??F (37.1 ??C) (09/02/25 0520), Temp src: Oral (06/13/25 0520), SpO2: 95 % (06/13/25 0800) CLINICAL IMPRESSION Diagnosis Diagnosis Comment Added By Time Added ST elevation myocardial infarction (STEMI), unspecified artery ([facility]/HCC) [I21.3] Quinton Wright MD06/13/2025 8:41 AM DISPOSITION, EDUCATION AND MEDICATION RECONCILIATION Medications reconciled. See after visit summary for patient education on discharged patients. ED Disposition ED Disposition Transfer Condition Stable User Quinton Wright MD Date/Time ThuJun 13, 2025 8:44 AM Comment -- ATTESTATION STATEMENTS documented in this encounter Plan of Treatment Not on file documented as of this encounter Procedures Procedure Name Priority Date/Time Associated Diagnosis Comments TELEMETRY REPORT 06/14/2025 8:41 AM CDT TROPONIN 2 HR, 5TH GEN Timed Study 06/13/2025 7:09 AM CDT XR CHEST PA OR AP 1 VW Stat 06/13/2025 5:54 AM CDT EKG 12-LEAD Routine 06/13/2025 5:41 AM CDT TROPONIN BASELINE, 5TH GEN Stat 06/13/2025 5:15 AM CDT CBC WITH DIFFERENTIAL Stat 06/13/2025 5:15 AM CDT PTT Stat 06/13/2025 5:15 AM CDT PROTIME-INR Stat 06/13/2025 5:15 AM CDT D-DIMER Stat 06/13/2025 5:15 AM CDT TSH Stat 06/13/2025 5:15 AM CDT BRAIN NATRIURETIC PEPTIDE, BNP OR PROBNP Stat 06/13/2025 5:15 AM CDT MAGNESIUM LEVEL Stat 06/13/2025 5:15 AM CDT COMPREHENSIVE METABOLIC PANEL Stat 06/13/2025 5:15 AM CDT EKG 12-LEAD Stat 06/13/2025 5:14 AM CDT documented in this encounter Results * TELEMETRY REPORT (06/14/2025 8:41 AM CDT) us Provider Scanning ECG ORDERABLES Final Result * (ABNORMAL) TROPONIN 2 HR, 5TH GEN (06/13/2025 7:09 AM CDT) TROPONIN T, 2 HR 5TH GEN 23(H) <=15 ng/L 06/13/2025 7:27 AM CDT [facility] DELTA 2HR TROPONIN T 1 See Interp. 06/13/2025 7:27 AM CDT [facility] Blood BLOOD SPECIMEN / Unknown Collection / Unknown 06/13/2025 7:09 AM CDT 06/13/2025 7:14 AM CDT Narrative [facility] - 06/13/2025 7:27 AM CDT Troponin elevated. Delta not changing. us Levy Estrada MD CHEMISTRY ORDERABLES Final Result [facility] CLIA # [id number] [address] [place] [id number] * XR CHEST PA OR AP 1 VW (06/13/2025 5:54 AM CDT) Anatomical Region Laterality Modality Chest Computed Radiogr aphy 06/13/2025 5:30 AM CDT Impressions 06/13/2025 8:54 AM CDT IMPRESSION: No acute cardiopulmonary findings. Narrative 06/13/2025 8:54 AM CDT EXAM: XR CHEST PA OR AP 1 VW DIAGNOSIS/REASON FOR EXAM: Chest Pain. DATE AND TIME: 06/13/2025, 5:54 AM. COMPARISON: Chest x-ray obtained on 09/04/2010. TECHNIQUE: AP view of the chest. FINDINGS: No focal consolidation, pleural effusion, or pneumothorax is identified. The cardiac silhouette is within normal limits of size. There are mild degenerative changes of the thoracic spine. Procedure Note Nikolas Gutierres MD - 06/13/2025 EXAM: XR CHEST PA OR AP 1 VW DIAGNOSIS/REASON FOR EXAM: Chest Pain. DATE AND TIME: 06/13/2025, 5:54 AM. COMPARISON: Chest x-ray obtained on 09/04/2010. TECHNIQUE: AP view of the chest. FINDINGS: No focal consolidation, pleural effusion, or pneumothorax is identified. The cardiac silhouette is within normal limits of size. There are mild degenerative changes of the thoracic spine. IMPRESSION: No acute cardiopulmonary findings. Result [facility] Levy Estrada MD DIAGNOSTIC IMAGING OR DERABLES Final Result * EKG Interpretation (06/13/2025 5:41 AM CDT) Narrative Quinton Wright MD - 06/13/2025 5:41 AM CDT Quinton Wright MD 06/13/2025 8:48 AM EKG Interpretation Date/Time: 06/13/2025 5:41 AM Performed by: Levy Estrada MD Authorized by: Levy Estrada MD Rate: ECG rate: 71 ECG rate assessment: age appropriate Rhythm: Rhythm Origin: sinus Comments: Normal sinus rhythm incomplete right bundle branch block anterior changes have resolved normal axis and intervals Levy Estrada MD ECG ORDERABLES Final Result * MAGNESIUM LEVEL (06/13/2025 5:15 AM CDT) MAGNESIUM 1.6 1.6 - 2.6 mg/dL 06/13/2025 9:12 AM CDT [facility] Blood BLOOD SPECIMEN / Unknown Collection / Unknown 06/13/2025 5:15 AM CDT 06/13/2025 5:25 AM CDT Quinton Wright MD CHEMISTRY ORDERABLES Final Resu lt [facility] CLIA # [id number] [address] [place] [id number] * (ABNORMAL) TSH (06/13/2025 5:15 AM CDT) TSH 4.62(H) 0.27 - 4.20 uIU/mL 06/13/2025 9:12 AM CDT [facility] Blood BLOOD SPECIMEN / Unknown Collection / Unknown 06/13/2025 5:15 AM CDT 06/13/2025 5:25 AM CDT us Quinton Wright MD CHEMISTRY ORDERABLES Final Resu lt Performing Organization Address [facility] Co de Phone Number [facility] # [id number] [address] [place] [phone] * BRAIN NATRIURETIC PEPTIDE, BNP OR PROBNP (06/13/2025 5:15 AM CDT) PROBNP, N TERMINAL <36 0 - 125 pg/mL 06/13/2025 9:12 AM CDT [facility] Comment: INTERPRETIVE COMMENT based on diagnosis: Diagnostic NT pro-BNP cutoffs for Heart Failure in the absence of renal failure is suggested for the following ranges <75 years: <125 pg/mL >=75 years: <450 pg/mL Exclusionary rule out cut-point for Acute Decompensated Heart Failure(ADHF) All ages: <300 pg/mL Diagnostic NT pro-BNP cutoffs for Acute Decompensated Heart Failure(ADHF) in the absence of renal failure is suggested for the following ages <50 years: > 450 pg/mL 50-75 years: > 900 pg/mL >75 years: >1800 pg/mL Blood BLOOD SPECIMEN / Unknown Collection / Unknown 06/13/2025 5:15 AM CDT 06/13/2025 5:25 AM CDT us Quinton Wright MD CHEMISTRY ORDERABLES Final Resu lt Performing Organization Address City/[facility]/ZIP Co de Phone Number [facility] CLIA # [id number] [address] [place] [phone] * PROTIME-INR (06/13/2025 5:15 AM CDT) PROTIME 12.7 12.1 - 14.3 Seconds 06/13/2025 9:01 AM CDT [facility] INR 1.0 0.9 - 1.1 06/13/2025 9:01 AM CDT [facility] Blood BLOOD SPECIMEN / Unknown Collection / Unknown 06/13/2025 5:15 AM CDT 06/13/2025 8:48 AM CDT Quinton Wright MD HEMATOLOGY ORDERABLES Final Res ult [facility] # [id number] [address] [place] [phone] * D-DIMER (06/13/2025 5:15 AM CDT) Pathologist [facility] D-DIMER QUANT <0.15 <0.50 ug/mL FEU 06/13/2025 9:01 AM CDT [facility] Blood BLOOD SPECIMEN / Unknown Collection / Unknown 06/13/2025 5:15 AM CDT 06/13/2025 8:48 AM CDT Narrative [facility] - 06/13/2025 9:01 AM CDT D-Dimer assay cutoff value for exclusion of DVT and/or PE is <0.50 ug/mL FEU. As D-Dimer levels increase naturally with age, age stratification for patients over 50 is potentially more appropriate in determining whether a patient should undergo further evaluation for DVT and/or PE than a general cutoff of 0.50 ug/mL FEU. Clinical consideration is recommended. Age Stratified Cutoff Values: 50-60 years: 0.50-0.60 ug/mL FEU 61-70 years: 0.61-0.70 ug/mL FEU 71-80 years: 0.71-0.80 ug/mL FEU Quinton Wright MD HEMATOLOGY ORDERABLES Final Res ult [facility] CLIA # [id number] [address] [place] [phone] * PTT (06/13/2025 5:15 AM CDT) PTT 26.2 25.1 - 35.4 seconds 06/13/2025 9:01 AM CDT [facility] Blood BLOOD SPECIMEN / Unknown Collection / Unknown 06/13/2025 5:15 AM CDT 06/13/2025 8:48 AM CDT Quinton Wright MD HEMATOLOGY ORDERABLES Final Res ult Performing Organization Address [facility] Co de Phone Number [facility] CLIA # [id number] [address] [place] [phone] * (ABNORMAL) TROPONIN BASELINE, 5TH GEN (06/13/2025 5:15 AM CDT) TROPONIN T, BASELINE 5TH GEN 22(H) <=15 ng/L 06/13/2025 5:40 AM CDT [facility] Blood BLOOD SPECIMEN / Unknown Collection / Unknown 06/13/2025 5:15 AM CDT 06/13/2025 5:25 AM CDT Narrative [facility] - 06/13/2025 5:40 AM CDT Troponin elevated. Levy Estrada MD CHEMISTRY ORDERABLES Final Result Performing Organization Address City/[facility]/ZIP Co de Phone Number [facility] CLIA # [id number] [address] [place] [phone] * (ABNORMAL) COMPREHENSIVE METABOLIC PANEL (06/13/2025 5:15 AM CDT) SODIUM 132(L) 136 - 145 mmol/L 06/13/2025 5:40 AM [facility] POTASSIUM 4.2 3.5 - 5.1 mmol/L 06/13/2025 5:40 AM [facility] CHLORIDE 97(L) 98 - 107 mmol/L 06/13/2025 5:40 AM [facility] CO2 24 22 - 29 mmol/L 06/13/2025 5:40 AM [facility] CALCIUM 9.9 8.6 - 10.0 mg/dL 06/13/2025 5:40 AM [facility] BUN 13 6 - 20 mg/dL 06/13/2025 5:40 AM [facility] CREATININE 0.67 0.67 - 1.17 mg/dL 06/13/2025 5:40 AM [facility] GLUCOSE 224(H) 74 - 99 mg/dL 06/13/2025 5:40 AM [facility] TOTAL PROTEIN 7.7 6.6 - 8.7 g/dL 06/13/2025 5:40 AM [facility] ALBUMIN 4.3 3.5 - 5.2 g/dL 06/13/2025 5:40 AM [facility] BILIRUBIN TOTAL 0.6 0.0 - 1.2 mg/dL 06/13/2025 5:40 AM [facility] ALKALINE PHOSPHATASE 86 40 - 129 U/L 06/13/2025 5:40 AM [facility] AST 17 0 - 50 U/L 06/13/2025 5:40 AM [facility] ALT 11 0 - 50 U/L 06/13/2025 5:40 AM [facility] GFR >60 >=60 mL/min/1.7 3 sq meter 06/13/2025 5:40 AM [facility] Comment:eGFR calculated with 2020 CKD-EPI equation. Vegetarian diet, extremely high or low muscle mass, and may affect results. Cystatin C with Glomerular Filtration Rate is a suitable alternative for these patients. ANION GAP 11 5 - 20 mmol/L 06/13/2025 5:40 AM [facility] Blood BLOOD SPECIMEN / Unknown Collection / Unknown 06/13/2025 5:15 AM CDT 06/13/2025 5:25 AM CDT us Levy Estrada MD CHEMISTRY ORDERABLES Final Result [facility] CLIA # [id number] [address] [place] [address] * (ABNORMAL) CBC WITH DIFFERENTIAL (06/13/2025 5:15 AM CDT) WBC 11.4(H) 4.2 - 9.1 K/uL 06/13/2025 5:38 AM [facility] RBC 6.34(H) 4.63 - 6.08 M/uL 06/13/2025 5:38 AM [facility] HEMOGLOBIN 18.2(H) 13.7 - 17.5 g/dL 06/13/2025 5:38 AM [facility] HEMATOCRIT 52.4(H) 40.1 - 51.0 % 06/13/2025 5:38 AM [facility] MCV 82.6 79.0 - 92.2 fL 06/13/2025 5:38 AM [facility] MCH 28.7 25.7 - 32.2 pg 06/13/2025 5:38 AM [facility] MCHC 34.7 32.3 - 36.5 g/dL 06/13/2025 5:38 AM [facility] RDW 13.1 11.0 - 14.5 % 06/13/2025 5:38 AM [facility] RDW-STDEV 38.5 36.9 - 56.9 fL 06/13/2025 5:38 AM [facility] PLATELETS 263 130 - 400 K/uL 06/13/2025 5:38 AM [facility] MPV 11.2 10.0 - 14.8 fL 06/13/2025 5:38 AM [facility] NEUTROPHILS 51 34 - 68 % 06/13/2025 5:38 AM CDT [facility] LYMPHOCYTES 39 22 - 53 % 06/13/2025 5:38 AM T [facility] MONOCYTES 7 5 - 12 % 06/13/2025 5:38 AM T [facility] EOSINOPHILS 2 1 - 7 % 06/13/2025 5:38 AM T [facility] BASOPHILS 1 0 - 1 % 06/13/2025 5:38 AM T [facility] IMMATURE GRANULOCYTES 0 % 06/13/2025 5:38 AM T [facility] NEUTROPHIL ABSOLUTE 5.78(H) 1.78 - 5.38 K/uL 06/13/2025 5:38 AM T [facility] LYMPHOCYTE ABSOLUTE 4.48(H) 1.20 - 3.40 K/uL 06/13/2025 5:38 AM [facility] MONOCYTE ABSOLUTE 0.84(H) 0.30 - 0.82 K/uL 06/13/2025 5:38 AM [facility] EOSINOPHIL ABSOLUTE 0.18 0.04 - 0.54 K/uL 06/13/2025 5:38 AM [facility] BASOPHILS ABSOLUTE 0.07 0.01 - 0.08 K/uL 06/13/2025 5:38 AM [facility] IMMATURE GRANULOCYTES ABSOLUTE 0.03 K/uL 06/13/2025 5:38 AM [facility] Blood BLOOD SPECIMEN / Unknown Collection / Unknown 06/13/2025 5:15 AM CDT 06/13/2025 5:25 AM CDT us Levy Estrada MD HEMATOLOGY ORDERABLES Final Result [facility] # [id number] [address] [place] [address] [phone] * EKG 12-LEAD (06/13/2025 5:14 AM CDT) Narrative Day, Quinton Mg MD - 06/13/2025 5:14 AM CDT Quinton Wright MD 06/13/2025 8:48 AM EKG 12-LEAD Date/Time: 06/13/2025 5:14 AM Performed by: Levy Estrada MD Authorized by: Levy Estrada MD Comments: Normal sinus rhythm rate of 81 mild right axis deviation subtle ST depressions in V5 but no contiguous or reciprocal changes No acute signs of's of infarct normal intervals us Levy Estrada MD ECG ORDERABLES Final Result documented in this encounter Visit Diagnoses Diagnosis ST elevation myocardial infarction (STEMI), unspecified artery (CMS/HCC)- Primary ST elevation myocardial infarction (STEMI) (CMS/HCC) Acute myocardial infarction, unspecified site, episode of care unspecified documented in this encounter Administered Medications Inactive Administered Medications - up to 3 most recent administrations Medication Order MAR Action Action Date Dose Rate Site aspirin ([place] CHEWABLE) chewable tablet 324 mg 324 mg, Oral, ONE TIME ONLY, 1 dose, On Thu06/13/25 at 0600, Routine Given 06/13/2025 5:52 AM CDT 324 mg clopidogreL (PLAVIX) tablet 600 mg 600 mg, Oral, ONE TIME ONLY, 1 dose, On Thu06/13/25 at 0845, Stat Given 06/13/2025 8:50 AM CDT 600 mg heparin in 0.45% NaCl 25,000 unit/250 mL infusion 11.7 Units/kg/hr 85.3 kg Adjusted weight (9.9801 mL/hr, rounded to 10 mL/hr), IV, TITRATE, Starting on Thu06/13/25 at 0845, Until Thu06/13/25 at 1113, Indication: ACS/STEMI, Dosing by: PER PROTOCOL: Delegate to facility protocol per indication, Re-bolus within Protocol? No, titrate infusion ONLY New Bag 06/13/2025 8:47 AM CDT 11.7 Units/kg/hr 10 mL/hr heparin injection 4,000 Units 4,000 Units, IV, ONE TIME ONLY, 1 dose, On Thu06/13/25 at 0845, StatIndications:ACS/STEM I Given 06/13/2025 8:48 AM CDT 4,000 Units documented in this encounter Active and Recently Administered Medications Times are shown in CDT. Scheduled Medication Order 06/11/2025 06/12/2025 06/13/2025 aspirin ([place] CHEWABLE) chewable tablet 324 mg (COMPLETED) 324 mg, Oral, ONE TIME ONLY, 1 dose, On Thu06/13/25 at 0600, Routine 0552 (Given - Provid er: Bianca Jay RN) clopidogreL (PLAVIX) tablet 600 mg (COMPLETED) 600 mg, Oral, ONE TIME ONLY, 1 dose, On Thu06/13/25 at 0845, Stat 0850 (Given - Provid er: Smiley Guzman RN) heparin injection 4,000 Units (COMPLETED) 4,000 Units, IV, ONE TIME ONLY, 1 dose, On Thu06/13/25 at 0845, Stat 0848 (Given - Provid er: Smiley Guzman RN) insulin regular (HumuLIN R,NovoLIN R) injection 3 Units 3 Units, IV, ONE TIME ONLY, 1 dose, On Thu06/13/25 at 0900, Routine 0900 (Due) sodium chloride 0.9 % bolus solution 1,000 mL 1,000 mL, IV, ONE TIME ONLY, 1 dose, On Thu06/13/25 at 0845, at 2,000 mL/hr, Administer over 30 Minutes, Routine 0845 (Due) Continuous Medication Order 06/11/2025 06/12/2025 06/13/2025 heparin in 0.45% NaCl 25,000 unit/250 mL infusion 11.7 Units/kg/hr 85.3 kg Adjusted weight (9.9801 mL/hr, rounded to 10 mL/hr), IV, TITRATE, Starting on Thu06/13/25 at 0845, Until Thu06/13/25 at 1113, Indication: ACS/STEMI, Dosing by: PER PROTOCOL: Delegate to facility protocol per indication, Re-bolus within Protocol? No, titrate infusion ONLY 0847 (New Bag - Prov ider: Smiley Guzman RN)1113 (Due: Order Ending - Provider: PROVIDER, DISCHARGE PATIENT - Comment: [Order ends at this time. Document the following action when infusion is complete: Stopped]) documented in this encounter Care Teams Property Supervisor Relationship Specialty Start Date End Date Jojo Regalado MD [address] [phone] PCP - General Family Practice 05/20/18 documented as of this encounter
--- NOTE | 2025-06-15 08:14 | ECG_ITS ---
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 Measurements Intervals [place] Rate: 65 P: 69 OR: 203 QRS: -78 QRSD: 111 T: 50 QT: 401 QTc: 418 Interpretive Statements SINUS RHYTHM WITH OCCASIONAL SUPRAVENTRICULAR PREMATURE COMPLEXES LEFT AXIS DEVIATION [QRS AXIS < -30] PATTERN CONSISTENT WITH PULMONARY DISEASE INCOMPLETE RIGHT BUNDLE BRANCH BLOCK [90+ ms QRS DURATION, TERMINAL R IN V1/V2, 40+ ms S IN I/aVL/V4/V5/V6] No previous ECG available for comparison Electronically Signed On 06-16-2025 09:12:48 CDT by [place] Terrell M.D. [email or web address]
--- OUTSIDE RECORDS SUMMARY | 2025-06-15 08:14 | XMS_ITS | Encounter Summary ---
Author Organization [facility] Address [address] [place] [address] Care Team Providers Care Seismograph Operator Name Role Phone Jojo Regalado MD Primary Care Provider [phone] Encounter Details Date Type Department Care Team (Late st Contact Info) Description 11/26/2007 Outpatient Historical [facility] 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
--- OUTSIDE RECORDS SUMMARY | 2025-06-15 08:14 | XMS_ITS | Encounter Summary ---
Author Organization [facility] Address [address] [place] [address] Care Team Providers Care Gas Plant Specialist Name Role Phone Jojo Regalado MD Primary Care Provider +1- [phone] Encounter Details Date Type Department Care Team (Latest Contact Info) Description 06/22/2007 Outpatient Historical [facility] [address] [place] [phone] Eneida Black, Carlos Gordon MD NO ADDRESS ON FILE Thyrotoxicosis NOS w/o Crisis (Primary Dx) Social History Tobacco Use Types Packs/Day Years Used Date Smoking Tobacco: Never Assessed Sex and Gender Information Value Date Recorded Sex Assigned at Not on file 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 A thyroid imagingexamination performed at [facility] in [facility] on 05/12/2007 demonstrated adiffuse toxic goiter [...] By: Jeremiah Dye M.D. Date Signed: 06/23/07 WAELDER Procedure Note 09/02/2009 Therapy Note: Radiopharmaceutical: I-131 [...] pg/mL (normal 2.30-4.20). A thyroidimagingexamination performed at [facility] in [facility] on 05/12/2007 demonstratedadiffuse toxic goiter with [...] 06/23/07 AMA us Carlos Monique Jr., MD [place] ORDERABLES Final Resul t INTERFACE SYSTEM Refer to clinic/hospital department documented in this encounter Visit Diagnoses Diagnosis Thyrotoxicosis without mention of goiter or other cause, without mention of thyrotoxic crisis or storm- Primary documented in this encounter Care Teams Gas Plant Specialist Relationship Specialty Start Date End Date Jojo Regalado MD [address] [facility] [address] [place] [phone] PCP - General Family Practice 05/20/18 documented as of this encounter
--- OUTSIDE RECORDS SUMMARY | 2025-06-15 08:14 | XMS_ITS | Encounter Summary ---
Author Organization [facility] Address [address] [place] [address] Care Team Providers Care Blister Packing Machine Tender Name Role Phone Jojo Regalado MD Primary Care Provider +1- [phone] Encounter Details Date Type Department Care Team (Late st Contact Info) Description 12/03/2007 Outpatient Historical [facility] Plastic Surgery 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
--- OUTSIDE RECORDS SUMMARY | 2025-06-15 08:14 | XMS_ITS | Clinical Summary ---
Author Organization [facility] Address [address] [place] [address] Care Team Providers Care Biofuels Technology Manager Name Role Phone Jojo Regalado MD Primary Care Provider Allergies No known active allergies Medications naproxen sodium (ALEVE) 220 mg Oral Tab Take 220 mg by mouth every 4 hours as needed. Active fluticasone propionate (FLONASE) 50 mcg/spray [place], Suspension nasal inhaler Administer 2 Sprays in [...] on file Legal Sex Male 6:49 AM SERVICE ARCHITECT Gender Identity Not on file Sexual Orientation Not on file Last Filed Vital Signs Vital Sign Reading Time Taken Comments Blood Pressure 112/74 09/29/2019 9:04 AM SERVICE ARCHITECT Pulse 72 09/29/2019 9:04 AM SERVICE ARCHITECT Temperature 36.6 C (97.8 F) 09/29/2019 9:04 AM SERVICE ARCHITECT Respiratory Rate 21 12/13/2018 10:07 AM SERVICE ARCHITECT Oxygen Saturation 98% 09/29/2019 9:04 AM SERVICE ARCHITECT Inhaled Oxygen Concentration - - Weight 123.4 kg (272 lb) 09/29/2019 9:04 AM SERVICE ARCHITECT Height 175.3 cm (5' 9 ) 09/29/2019 9:04 AM SERVICE ARCHITECT Body Mass Index 40.17 09/29/2019 9:04 AM SERVICE ARCHITECT Plan of Treatment Health Maintenance Due Date [...] Comments LIPID PANEL Routine 12/19/2020 7:00 AM SERVICE ARCHITECT Hyperlipidemia, unspecified hyperlipidemia type MICROALBUMIN/CREATI NINE RATIO, RANDOM UR Routine 11/01/2019 7:40 AM SERVICE ARCHITECT Type 2 diabetes mellitus without complication, without long-term current use of insulin ([facility]) HEMOGLOBIN A1C Routine 12/13/2018 10:44 AM SERVICE ARCHITECT Type 2 diabetes mellitus with hyperglycemia, without long-term current use of insulin ([facility]) from Last 3 Months or Most Recently Relevant to Health Maintenance Results * LIPID PANEL (12/19/2020 7:00 AM SERVICE ARCHITECT) ABSTRACTED CHOLESTEROL 243 EXTERNAL LAB ABSTRACTED TRIGLYCERIDE 328 EXTERNAL LAB ABSTRACTED HDL 42 EXTERNAL LAB ABSTRACTED LDL CALCULATED 151 EXTERNAL LAB CHOLESTEROL EXTERNAL LAB TRIGLYCERIDE EXTERNAL LAB HDL EXTERNAL LAB LDL CALCULATED EXTERNAL LAB Blood 12/19/2020 7:00 AM SERVICE ARCHITECT Ottoniel ALMAGUER CHEMISTRY ORDERABLES Final Re sult EXTERNAL LAB * MICROALBUMIN/CREATININE RATIO, RANDOM UR (11/01/2019 7:40 AM SERVICE ARCHITECT) ABSTRACTED MICROALBUMIN,URI NE 2.0 EXTERNAL LAB MICROALBUMIN, URINE EXTERNAL LAB CREATININE, URINE EXTERNAL LAB MICROALBUMIN/CRE AT RATIO, UR EXTERNAL LAB MICROALBUMIN, URINE EXTERNAL LAB CREATININE, URINE EXTERNAL LAB MICROALBUMIN/CRE AT RATIO, UR EXTERNAL LAB Urine URINE SPECIMEN OBTAINED BY CLEAN CATCH PROCEDURE / Unknown 11/01/2019 7:40 AM SERVICE ARCHITECT Ottoniel ALMAGUER URINE ORDERABLES Final Result EXTERNAL LAB * (ABNORMAL) HEMOGLOBIN A1C (12/13/2018 10:44 AM SERVICE ARCHITECT) HEMOGLOBIN A1C 9.3(H) See Comment % 12/13/2018 8:21 PM SERVICE ARCHITECT [facility] EST. AVG GLUCOSE, A1C 220 mg/dL 12/13/2018 8:21 PM SERVICE ARCHITECT [facility] Blood Collection / Unknown 12/13/2018 10:44 AM SERVICE ARCHITECT 12/13/2018 7:44 PM SERVICE ARCHITECT Narrative [facility] - 12/13/2018 8:21 PM SERVICE ARCHITECT HGB A1C INTERPRETATION NORMAL: <5.7% PRE-DIABETES: 5.7 - 6.4% DIABETES: 6.5% OR GREATER Falsely low A1C measurements can occur when: 1. Anemia and/or hemolytic anemia is present. 2. Hemoglobin variants present. 3. Renal failure. 4. Transfusion of blood product in the last 120 days. We recommend ordering a fructosamine test(OMC8530) to more accurately assess glycemic status if any of the above conditions are present. Ottoniel ALMAGUER CHEMISTRY ORDERABLES Final Re sult [facility] CLIA# [id number] [facility] [place] [address] from Last 3 Months or Most Recently Relevant to Health Maintenance Insurance WORKERS COMP Advance Directives For more information, please contact: [phone] * Full Code (Latest Code Status on File) Date Activated Date Inactivated Comments 09/04/2010 12:45 PM 09/05/2010 12:03 PM * Full Code Date Activated Date Inactivated Comments 09/04/2010 6:24 AM 09/04/2010 12:45 PM Care Teams Biofuels Technology Manager Relationship Specialty Start Date End Date Jojo Regalado MD [address] [address] PCP - General Family Practice 05/20/18
--- OUTSIDE RECORDS SUMMARY | 2025-06-15 08:14 | XMS_ITS | Encounter Summary ---
Author Organization [facility] Address [address] [place] [address] Care Team Providers Care Clinical Team Manager Name Role Phone Jojo Regalado MD Primary Care Provider +1- [phone] Encounter Details Date Type Department Care Team (Latest Contact Info) Description 11/20/2007 Outpatient Historical [facility] Operating Room [address] [place] [address] Ed, Physician NO ADDRESS ON FILE Scotty Dial MD [address] [place] [address] Max Pompa MD [address] [place] [address] Open Wound of Finger(s) , with Tendon Involvement; Accident Caused by Other Specified Machinery; Place of Occurrence, Industrial Places and Premises Social History Tobacco Use Types Packs/Day Years Used Date Smoking Tobacco: Never Assessed Sex and Gender Information Value Date Recorded Sex Assigned at Not on file Legal Sex Male 6:49 AM OUTSOLE CASER Gender Identity Not on file Sexual Orientation Not on file documented as of this encounter Plan of Treatment Not on file documented as of this encounter Procedures Procedure Name Priority Date/Time Associated Diagnosis Comments XR FLUORO LESS THAN 1 HOUR Routine 11/20/2007 8:30 PM OUTSOLE CASER documented in this encounter Results * XR FLUORO < 1 HOUR (11/20/2007 8:30 PM OUTSOLE CASER) Anatomical Region Laterality Modality Other 11/20/2007 8:30 PM OUTSOLE CASER Narrative 11/22/2007 12:17 AM OUTSOLE CASER Finalized by interface cleanup utility. No report expected. Procedure Note 10/22/2008 Finalized by interface cleanup utility. No report expected. Max Pompa MD DIAGNOSTIC IMAGING ORDERABLES Fi nal Result documented in this encounter Visit Diagnoses Diagnosis Open wound of finger(s) , with tendon involvement Accident caused by other specified machinery Place of occurrence, industrial places and premises documented in this encounter Care Teams Clinical Team Manager Relationship Specialty Start Date End Date Jojo Regalado MD [address] [phone] PCP - General Family Practice 05/20/18 documented as of this encounter
--- OUTSIDE RECORDS SUMMARY | 2025-06-15 08:14 | XMS_ITS | Encounter Summary ---
Author Organization [facility] Address [address] [place] [address] Care Team Providers Care Furnace Repairer Helper Name Role Phone Jojo Regalado MD Primary Care Provider +1- [phone] Encounter Details Date Type Department Care Team (Late st Contact Info) Description 11/29/2007 Outpatient Historical [facility] [address] [place] [address] Max Pompa MD [address] [place] [address] Pain in Soft Tissues of Limb; Closed Fracture of Middle or Proximal Phalanx or Phalanges of Hand; Fracture in Accidental Fall, Cause Unspecified; Unspecified Place of Occurrence Social History Tobacco Use Types Packs/Day Years Used Date Smoking Tobacco: Never Assessed Sex and Gender Information Value Date Recorded Sex Assigned at Not on file Legal Sex Male 6:49 AM 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 MANAGER Gender Identity Not on file Sexual Orientation Not on file documented as of this encounter Plan of Treatment Not on file documented as of this encounter Procedures Procedure Name Priority Date/Time Associated Diagnosis Comments XR FINGER THUMB RIGHT Routine 12/03/2007 10:22 AM SHOWROOM MANAGER documented in this encounter Results * XR FINGER THUMB RIGHT (12/03/2007 10:22 AM SHOWROOM MANAGER) Anatomical Region Laterality Modality Wrist / Hand Other 12/03/2007 10:2 2 AM SHOWROOM MANAGER Narrative 12/03/2007 10:22 AM SHOWROOM MANAGER Exam: Finger(s) - Rt Date/Time of Exam: [...] occurrence documented in this encounter Care Teams Furnace Repairer Helper Relationship Specialty Start Date End Date Jojo Regalado MD [address] [address] PCP - General Family Practice 05/20/18 documented as of this encounter
--- OUTSIDE RECORDS SUMMARY | 2025-06-15 08:15 | XMS_ITS | Encounter Summary ---
Author Organization [facility] Address [address] [place] [address] Care Team Providers Care Electrical Equipment Technician Name Role Phone Jojo Regalado MD Primary Care Provider +1- [phone] Encounter Details Date Type Department Care Team (Late st Contact Info) Description 01/21/2008 Outpatient Historical [facility] Other, Sgf NO ADDRESS ON FILE Social History Tobacco Use Types Packs/Day Years Used Date Smoking Tobacco: Never Assessed Sex and Gender Information Value Date Recorded Sex Assigned at Not on file Legal Sex Male 6:49 AM DIP GUIDER STOVES Gender Identity Not on file Sexual Orientation Not on file documented as of this encounter Plan of Treatment Not on file documented as of this encounter Visit Diagnoses Not on filedocumented in this encounter Care Teams Electrical Equipment Technician Relationship Specialty Start Date End Date Jojo Regalado MD [address] [facility] [address] [place] [address] PCP - General Family Practice 05/20/18 documented as of this encounter
--- OUTSIDE RECORDS SUMMARY | 2025-06-15 08:15 | XMS_ITS | Encounter Summary ---
Author Organization [facility] Address [address] [place]campo: Epic Prelude ADT [place] [address] Care Team Providers Care House Calls Nurse Practitioner Name Role Phone Jojo Regalado MD Primary Care Provider +1- [phone] Encounter Details Date Type Department Care Team [...] on file Legal Sex Male 3:11 AM BODY CARE MANAGER Gender Identity Not on file Sexual Orientation Not on file documented as of this encounter Plan of Treatment Not on file documented as of this encounter Visit Diagnoses Not on filedocumented in this encounter Care Teams House Calls Nurse Practitioner Relationship Specialty Start Date End Date Jojo Regalado MD [address] [facility] [address] [place] [address] PCP - General Family Practice 05/20/18 documented as of this encounter
--- OUTSIDE RECORDS SUMMARY | 2025-06-15 08:15 | XMS_ITS | Encounter Summary ---
Author Organization [facility] Address [address] [place] [address] Care Team Providers Care Sap Business Analyst Name Role Phone Jojo Regalado MD Primary Care Provider +1- [phone] Encounter Details Date Type Department Care Team (Late st Contact Info) Description 12/24/2007 Outpatient Historical [facility] [address] [place] [address] Max Pompa MD [address] [place] [address] Social History Tobacco Use Types Packs/Day Years Used Date Smoking Tobacco: Never Assessed Sex and Gender Information Value Date Recorded Sex Assigned at Not on file Legal Sex Male 6:49 AM BEET TOPPER Gender Identity Not on file Sexual Orientation Not on file documented as of this encounter Plan of Treatment Not on file documented as of this encounter Visit Diagnoses Not on filedocumented in this encounter Care Teams Sap Business Analyst Relationship Specialty Start Date End Date Jojo Regalado MD [address] [facility] [address] [place] [address] PCP - General Family Practice 05/20/18 documented as of this encounter
--- OUTSIDE RECORDS SUMMARY | 2025-06-15 08:15 | XMS_ITS | Encounter Summary ---
Author Organization [facility] Address [address] [place] [address] Care Team Providers Care Cash Grain Farmer Name Role Phone Jojo Regalado MD Primary Care Provider +1- [phone] Encounter Details Date Type Department Care Team (Late st Contact Info) Description 12/17/2007 Outpatient Historical [facility] [address] [place] [phone] Max Pompa MD [address] [place] [address] Social History Tobacco Use Types Packs/Day Years Used Date Smoking Tobacco: Never Assessed Sex and Gender Information Value Date Recorded Sex Assigned at Not on file Legal Sex Male 6:49 AM PILLOW CLEANER Gender Identity Not on file Sexual Orientation [...] on filedocumented in this encounter Care Teams Cash Grain Farmer Relationship Specialty Start Date End Date Jojo Regalado MD [address] [facility] [place] [address] PCP - General Family Practice 05/20/18 documented as of this encounter
--- OUTSIDE RECORDS SUMMARY | 2025-06-15 08:15 | XMS_ITS | Encounter Summary ---
Author Organization [facility] Address [address] [place] [address] Care Team Providers Care Horse Groomer Name Role Phone Jojo Regalado MD Primary Care Provider +1- [phone] Encounter Details Date Type Department Care Team (Late st Contact Info) Description 04/06/2008 Outpatient Historical [facility] [address] [place] [phone] Max Pompa MD [address] [place] [address] Social History Tobacco Use Types Packs/Day Years Used Date Smoking Tobacco: Never Assessed Sex and Gender Information Value Date Recorded Sex Assigned at Not on file Legal Sex Male 6:49 AM CELLAR WORKER Gender Identity Not on file Sexual Orientation [...] on filedocumented in this encounter Care Teams Horse Groomer Relationship Specialty Start Date End Date Jojo Regalado MD [address] [address] PCP - General Family Practice 05/20/18 documented as of this encounter
--- OUTSIDE RECORDS SUMMARY | 2025-06-15 08:15 | XMS_ITS | Encounter Summary ---
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
--- OUTSIDE RECORDS SUMMARY | 2025-06-15 08:15 | XMS_ITS | Encounter Summary ---
Author Organization [facility] Address [address] [place] [address] Care Team Providers Care Highway Inspector Name Role Phone Jojo Regalado MD Primary Care Provider +1- [phone] Encounter Details Date Type Department Care Team (Latest Contact Info) Description 02/21/2008 Outpatient Historical [facility] Hand Therapy [address] [place] [address] [place] [address] Non-Staff, Physician NO ADDRESS ON FILE Open Wound of Finger(s) , with Tendon Involvement Social History Tobacco Use Types Packs/Day Years Used Date Smoking Tobacco: Never Assessed Sex and Gender Information Value Date Recorded Sex Assigned at Not on file Legal Sex Male 6:49 AM BUSINESS STRATEGY MANAGER Gender Identity Not on file Sexual Orientation Not on file documented as of this encounter Plan of Treatment Not on file documented as of this encounter Visit Diagnoses Diagnosis Open wound of finger(s) , with tendon involvement documented in this encounter Care Teams Highway Inspector Relationship Specialty Start Date End Date Jojo Regalado MD [address] [phone] PCP - General Family Practice 05/20/18 documented as of this encounter
--- OUTSIDE RECORDS SUMMARY | 2025-06-15 08:15 | XMS_ITS | Encounter Summary ---
Author Organization [facility] Address [address] [place] [address] Care Team Providers Care Assistant Administrator Name Role Phone Jojo Regalado MD Primary Care Provider +1- [phone] Encounter Details Date Type Department Care Team (Latest Contact Info) Description 01/21/2008 Outpatient Historical [facility] Hand Therapy [address] [place] [place] [address] Non-Staff, Physician NO ADDRESS ON FILE Open Wound of Finger(s) , with Tendon Involvement Social History Tobacco Use Types Packs/Day Years Used Date Smoking Tobacco: Never Assessed Sex and Gender Information Value Date Recorded Sex Assigned at Not on file Legal Sex Male 6:49 AM STEAM BOX OPERATOR Gender Identity Not on file Sexual Orientation Not on file documented as of this encounter Plan of Treatment Not on file documented as of this encounter Visit Diagnoses Diagnosis Open wound of finger(s) , with tendon involvement documented in this encounter Care Teams Assistant Administrator Relationship Specialty Start Date End Date Jojo Regalado MD [address] [phone] PCP - General Family Practice 05/20/18 documented as of this encounter
--- OUTSIDE RECORDS SUMMARY | 2025-06-15 08:15 | XMS_ITS | Clinical Summary ---
Author Organization [facility] Address [address] Ocampo: Epic Prelude ADT [place] [address] Care Team Providers Care Aquatics Director Name Role Phone Jojo Regalado MD Primary Care Provider +1- [phone] Allergies No known active allergies Medications omeprazole [...] CDT - 06/13/2025 9:06 AM CDT Emergency [facility] Emergency Medicine [address] [place] [phone] elevation myocardial infarction (STEMI), unspecified artery (CMS/HCC) (Primary Dx) Discharge Disposition: Acute [facility] 06/13/2025 Results Follow-Up [facility] Emergency Medicine [address] [place] [address] Aliya De León APRN BRAIN NATRIURETIC PEPTIDE, BNP OR PROBNP, TSH, MAGNESIUM LEVEL 06/13/2025 Travel from Last 3 Months Family [...] on file Legal Sex Male 3:11 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 06/13/2025 7:27 AM CDT [facility] Blood BLOOD SPECIMEN / Unknown Collection / Unknown 06/13/2025 7:09 AM CDT 06/13/2025 7:14 AM CDT Narrative [facility] - 06/13/2025 7:27 AM CDT Troponin elevated. Delta not changing. Levy Estrada MD CHEMISTRY ORDERABLES Final Result [facility] CLIA # [id number] [address] [place] [address] * XR CHEST PA OR AP 1 [...] of2 resultswithin the time period is included. Narrative Quinton Portillo MD - 06/13/2025 5:41 AM CDT Quinton Portillo MD 06/13/2025 8:48 AM EKG Interpretation Date/Time: 06/13/2025 5:41 AM Performed by: Levy Estrada MD Authorized by: Levy Estrada MD Rate: ECG rate: 71 ECG rate assessment: age appropriate Rhythm: Rhythm Origin: sinus Comments: Normal sinus rhythm incomplete right bundle branch block anterior changes have resolved normal axis and intervals us Levy Estrada MD ECG ORDERABLES Final Result * (ABNORMAL) TROPONIN BASELINE, 5TH GEN (06/13/2025 5:15 AM CDT) TROPONIN T, BASELINE 5TH GEN 22(H) <=15 ng/L 06/13/2025 5:40 AM CDT [facility] Blood BLOOD SPECIMEN / Unknown Collection / Unknown 06/13/2025 5:15 AM CDT 06/13/2025 5:25 AM CDT Narrative [facility] - 06/13/2025 5:40 AM CDT Troponin elevated. Levy Estrada MD CHEMISTRY ORDERABLES Final Result [facility] CLIA # [id number] [address] [place] [address] * (ABNORMAL) CBC WITH DIFFERENTIAL (06/13/2025 5:15 AM CDT) WBC 11.4(H) 4.2 - 9.1 K/uL 06/13/2025 5:38 AM [facility] RBC 6.34(H) 4.63 - 6.08 M/uL 06/13/2025 5:38 AM [facility] HEMOGLOBIN 18.2(H) 13.7 - 17.5 g/dL 06/13/2025 5:38 AM [facility] HEMATOCRIT 52.4(H) 40.1 - 51.0 % 06/13/2025 5:38 AM [facility] MCV 82.6 79.0 - 92.2 fL 06/13/2025 5:38 AM [facility] MCH 28.7 25.7 - 32.2 pg 06/13/2025 5:38 AM [facility] MCHC 34.7 32.3 - 36.5 g/dL 06/13/2025 5:38 AM [facility] RDW 13.1 11.0 - 14.5 % 06/13/2025 5:38 AM [facility] RDW-STDEV 38.5 36.9 - 56.9 fL 06/13/2025 5:38 AM [facility] PLATELETS 263 130 - 400 K/uL 06/13/2025 5:38 AM [facility] MPV 11.2 10.0 - 14.8 fL 06/13/2025 5:38 AM [facility] NEUTROPHILS 51 34 - 68 % 06/13/2025 5:38 AM [facility] LYMPHOCYTES 39 22 - 53 % 06/13/2025 5:38 AM [facility] MONOCYTES 7 5 - 12 % 06/13/2025 5:38 AM [facility] EOSINOPHILS 2 1 - 7 % 06/13/2025 5:38 AM [facility] BASOPHILS 1 0 - 1 % 06/13/2025 5:38 AM CDT [facility] IMMATURE GRANULOCYTES 0 % 06/13/2025 5:38 AM CDT [facility] NEUTROPHIL ABSOLUTE 5.78(H) 1.78 - 5.38 K/uL 06/13/2025 5:38 AM CDT [facility] LYMPHOCYTE ABSOLUTE 4.48(H) 1.20 - 3.40 K/uL 06/13/2025 5:38 AM CDT [facility] MONOCYTE ABSOLUTE 0.84(H) 0.30 - 0.82 K/uL 06/13/2025 5:38 AM CDT [facility] EOSINOPHIL ABSOLUTE 0.18 0.04 - 0.54 K/uL 06/13/2025 5:38 AM CDT [facility] BASOPHILS ABSOLUTE 0.07 0.01 - 0.08 K/uL 06/13/2025 5:38 AM CDT [facility] IMMATURE GRANULOCYTES ABSOLUTE 0.03 K/uL 06/13/2025 5:38 AM CDT [facility] Blood BLOOD SPECIMEN / Unknown Collection / Unknown 06/13/2025 5:15 AM CDT 06/13/2025 5:25 AM CDT us Levy Estrada MD HEMATOLOGY ORDERABLES Final Result [facility] CLIA # [id number] [address] [place] [address] * PTT (06/13/2025 5:15 AM CDT) PTT 26.2 25.1 - 35.4 seconds 06/13/2025 9:01 AM CDT [facility] Blood BLOOD SPECIMEN / Unknown Collection / Unknown 06/13/2025 5:15 AM CDT 06/13/2025 8:48 AM CDT us Quinton Portillo MD HEMATOLOGY ORDERABLES Final Res ult [facility] CLIA # [id number] [address] [place] [address] * PROTIME-INR (06/13/2025 5:15 AM CDT) [facility] PROTIME 12.7 12.1 - 14.3 Seconds 06/13/2025 9:01 AM CDT [facility] INR 1.0 0.9 - 1.1 06/13/2025 9:01 AM CDT [facility] Blood BLOOD SPECIMEN / Unknown Collection / Unknown 06/13/2025 5:15 AM CDT 06/13/2025 8:48 AM CDT us Quinton Portillo MD HEMATOLOGY ORDERABLES Final Res ult [id number] [address] [place] [address] * D-DIMER (06/13/2025 5:15 AM CDT) [facility] D-DIMER QUANT <0.15 <0.50 ug/mL FEU 06/13/2025 9:01 AM CDT [facility] Blood BLOOD SPECIMEN / Unknown Collection / Unknown 06/13/2025 5:15 AM CDT 06/13/2025 8:48 AM CDT Narrative [facility] - 06/13/2025 9:01 AM CDT D-Dimer [...] ORDERABLES Final Res ult Performing Organization Address City/[facility]/ZIP Co de Phone Number [facility] CLIA # [id number] [address] [place] [address] * (ABNORMAL) TSH (06/13/2025 5:15 AM CDT) TSH 4.62(H) 0.27 - 4.20 uIU/mL 06/13/2025 9:12 AM CDT [facility] Blood BLOOD SPECIMEN / Unknown Collection / Unknown 06/13/2025 5:15 AM CDT 06/13/2025 5:25 AM CDT us Quinton Portillo MD CHEMISTRY ORDERABLES Final Resu lt Performing Organization Address [facility] Co de Phone Number [id number] [address] [place] [address] * BRAIN NATRIURETIC PEPTIDE, BNP OR PROBNP (06/13/2025 5:15 AM CDT) PROBNP, N TERMINAL <36 0 - 125 pg/mL 06/13/2025 9:12 AM CDT [facility] Comment: INTERPRETIVE COMMENT based on diagnosis: [...] Portillo MD CHEMISTRY ORDERABLES Final Resu lt Performing Organization Address City/[facility]/ZIP Co de Phone Number [facility] CLIA # [id number] [address] [place] [address] * MAGNESIUM LEVEL (06/13/2025 5:15 AM CDT) MAGNESIUM 1.6 1.6 - 2.6 mg/dL 06/13/2025 9:12 AM CDT [facility] Blood BLOOD SPECIMEN / Unknown Collection / Unknown 06/13/2025 5:15 AM CDT 06/13/2025 5:25 AM CDT us Quinton Portillo MD CHEMISTRY ORDERABLES Final Resu lt Performing Organization Address [facility] Co de Phone Number [facility] CLIA # [id number] [address] [place] [address] * (ABNORMAL) COMPREHENSIVE METABOLIC PANEL (06/13/2025 5:15 AM CDT) SODIUM 132(L) 136 - 145 mmol/L 06/13/2025 5:40 AM [facility] POTASSIUM 4.2 3.5 - 5.1 mmol/L 06/13/2025 5:40 AM [facility] CHLORIDE 97(L) 98 - 107 mmol/L 06/13/2025 5:40 AM [facility] CO2 24 22 - 29 mmol/L 06/13/2025 5:40 AM [facility] CALCIUM 9.9 8.6 - 10.0 mg/dL 06/13/2025 5:40 AM [facility] BUN 13 6 - 20 mg/dL 06/13/2025 5:40 AM [facility] CREATININE 0.67 0.67 - 1.17 mg/dL 06/13/2025 5:40 AM [facility] GLUCOSE 224(H) 74 - 99 mg/dL 06/13/2025 5:40 AM [facility] TOTAL PROTEIN 7.7 6.6 - 8.7 g/dL 06/13/2025 5:40 AM [facility] ALBUMIN 4.3 3.5 - 5.2 g/dL 06/13/2025 5:40 AM [facility] BILIRUBIN TOTAL 0.6 0.0 - 1.2 mg/dL 06/13/2025 5:40 AM [facility] ALKALINE PHOSPHATASE 86 40 - 129 U/L 06/13/2025 5:40 AM [facility] AST 17 0 - 50 U/L 06/13/2025 5:40 AM [facility] ALT 11 0 - 50 U/L 06/13/2025 5:40 AM [facility] GFR >60 >=60 mL/min/1.7 3 sq meter 06/13/2025 5:40 AM [facility] Comment:eGFR calculated with 2020 CKD-EPI equation. Vegetarian diet, extremely high or low muscle mass, and may affect results. Cystatin C with Glomerular Filtration Rate is a suitable alternative for these patients. ANION GAP 11 5 - 20 mmol/L 06/13/2025 5:40 AM [facility] Blood BLOOD SPECIMEN / Unknown Collection / Unknown 06/13/2025 5:15 AM CDT 06/13/2025 5:25 AM CDT us Levy Estrada MD CHEMISTRY ORDERABLES Final Result [facility] CLIA # [id number] [address] [place] [address]228 * HEMOGLOBIN A1C (12/19/2020 7:00 AM LOAN REVIEW ANALYST) ABSTRACTED HGB A1C 12.2 EXTERNAL LAB HEMOGLOBIN A1C ^ EXTERNAL LAB HEMOGLOBIN A1C EXTERNAL LAB GLUCOSE, MEAN BLOOD EXTERNAL LAB Blood 12/19/2020 7:00 AM LOAN REVIEW ANALYST us Ottoniel ALMAGUER CHEMISTRY ORDERABLES Final Re sult EXTERNAL LAB from Last 3 Months or Most Recently Relevant to Health Maintenance Insurance [employer] Care Teams Aquatics Director Relationship Specialty Start Date End Date Jojo Regalado MD [address] [phone] PCP - General Family Practice 05/20/18
--- OUTSIDE RECORDS SUMMARY | 2025-06-15 08:15 | XMS_ITS | Encounter Summary ---
Author Organization [facility] Address [address] [place] [address] Care Team Providers Care Senior Advisor Name Role Phone Jojo Regalado MD Primary Care Provider +1- [phone] Encounter Details Date Type Department Care Team (Latest Contact Info) Description 04/23/2008 Outpatient Historical [facility] Hand Therapy [address] [place] [address] [place] [phone] Non-Staff, Physician NO ADDRESS ON FILE Open Wound of Finger(s) , with Tendon Involvement Social History Tobacco Use Types Packs/Day Years Used Date Smoking Tobacco: Never Assessed Sex and Gender Information Value Date Recorded Sex Assigned at Not on file Legal Sex Male 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
--- OUTSIDE RECORDS SUMMARY | 2025-06-15 08:15 | XMS_ITS | Encounter Summary ---
Author Organization [facility] Address [address] [place] [address] Care Team Providers Care Systems Test Technician Name Role Phone Jojo Regalado MD Primary Care Provider +[phone]- [phone] Encounter Details Date Type Department Care Team (Late st Contact Info) Description 01/13/2008 Outpatient Historical [facility] [address] [place] [place] [phone] Max Pompa MD [address] [place] [address] Social History Tobacco Use Types Packs/Day Years Used Date Smoking Tobacco: Never Assessed Sex and Gender Information Value Date Recorded Sex Assigned at Not on file Legal Sex Male 6:49 AM 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
--- OUTSIDE RECORDS SUMMARY | 2025-06-15 08:15 | XMS_ITS | Encounter Summary ---
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
--- OUTSIDE RECORDS SUMMARY | 2025-06-15 08:15 | XMS_ITS | Encounter Summary ---
Author Organization [facility] Address [address] [place] [address] Care Team Providers Care Sugar Presser Name Role Phone Jojo Regalado MD Primary Care Provider +1- [phone] Encounter Details Date Type Department Care Team (Latest Contact Info) Description 03/23/2008 Outpatient Historical [facility] Hand Therapy [address] [place] [address] [place] [address] Non-Staff, Physician NO ADDRESS ON FILE Open Wound of Finger(s) , with Tendon Involvement Social History Tobacco Use Types Packs/Day Years Used Date Smoking Tobacco: Never Assessed Sex and Gender Information Value Date Recorded Sex Assigned at Not on file Legal Sex Male 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
--- OUTSIDE RECORDS SUMMARY | 2025-06-15 08:15 | XMS_ITS | Encounter Summary ---
Author Organization [facility] Address [address] [place] [address] Care Team Providers Care Paver Layer Name Role Phone Jojo Regalado MD Primary Care Provider +1- [phone] Reason for Referral * Outpatient Services (Routine) - Closed Specialty Diagnoses / Procedures Referred By Contyusef gibson Referred To Contact Diagnoses Atrial fibrillation (CMS/HCC) Procedures ECHO TRANSESOPHAGEAL WO DOPPLER Radha Hameed MD [address] [place] [phone] Phone: tel: fax: Referral ID Status Reason Start Date Expiration Date Visits Re quested Visits Authorized [id number] Closed 08/01/2010 01/28/2011 1 1 Encounter Details Date Type Department Care Team (Late st Contact Info) Description 08/01/2010 Ancillary Orders [facility]iology- [place] [address] [place] [address] Radha Hameed MD [address] [place] [phone] Atrial fibrillation (CMS/HCC) Social History Tobacco Use Types Packs/Day Years Used Date Smoking Tobacco: Every Day Cigarettes 0.5 17 Alcohol Use Standard Drinks/Week Comments No 0 (1 standard drink = 0.6 oz pur e alcohol) Sex and Gender Information Value Date Recorded Sex Assigned at Not on file Legal Sex Male 6:49 AM ALARM SERVICE TECHNICIAN Gender Identity Not on file Sexual Orientation Not on file documented as of this encounter Plan of Treatment Not on file documented as of this encounter Results * CL STUDY POSS ABLATION (09/04/2010 11:48 AM ALARM SERVICE TECHNICIAN) [facility] - 09/04/2010 3:52 PM ALARM SERVICE TECHNICIAN PRE-PROCEDURE DIAGNOSES: 1. Persistent atrial fibrillation. 2. [...] atrial fibrillation. MATERIALS USED: 5 and 6 Lao sheaths to the left femoral veins for quadruple and octapolar electrode catheter to map HIS bundle and RV apex area. 4 Lao sheath to the left femoral artery for continuous blood pressure measurements. 8, 8 and 11 Lao sheaths to the right femoral vein for the Orbitor electrode catheter, 8 millimeter ablation Carto mapping catheter, and intracardiac ultrasound catheter. 7 Lao sheath to the right internal jugular for [...] couple more ablations proceeded to complete the [place] of the right inferior pulmonary vein. The [...] baseline study. Post ablation, baseline as follows: OR 156, QRS 86, QT 322, AH 70, [...] Baseline as follows with isoproterenol post ablation: OR 150, QRS 85, QT 322, AH 65, [...] thanatrial fibrillation. MATERIALS USED: 5 and 6 Lao sheaths to the left femoral veins forquadruple and octapolar electrode catheter to map HIS bundle and RV apexarea. 4 Lao sheath to the left femoral artery for continuous bloodpressure measurements. 8, 8 and 11 Lao sheaths to the right femoralvein for the Orbitor electrode catheter, 8 millimeter ablation Cartomapping catheter, and intracardiac ultrasound catheter. 7 Lao sheath tothe right internal jugular for the [...] A couple moreablations proceeded to complete the [place] of the right inferior pulmonaryvein. The patient [...] baseline study. Post ablation, baseline as follows: OR 156, QRS 86, QT 322, AH 70, HV 60,cycle length 670 milliseconds. Ventricular pacing 1:1 conduction until 270milliseconds. Concentric conduction. Ventricular ERP was 500/200milliseconds. No VT could be induced. Atrial pacing 1:1 conduction [id number] milliseconds. We saw AV node dual physiology from 100-150 millisecondswith pacing from 600/340 to 600/330 milliseconds. Atrial ERP was 600/200milliseconds. Isoproterenol 1 microgram per minute was then infused toattempt to induce supraventricular tachycardia such as AV zane reentrytachycardia. Baseline as follows with isoproterenol post ablation: OR 150,QRS 85, QT 322, AH 65, HV [...] ECHO TRANSESOPHAGEAL WO DOPPLER (09/03/2010 8:58 AM ALARM SERVICE TECHNICIAN) 09/03/2010 8:22 AM ALARM SERVICE TECHNICIAN [employer] INTERFACE SYSTEM - 09/03/2010 9:10 AM ALARM SERVICE TECHNICIAN [facility] Cardiovascular Services Echocardiography Laboratory [address] [place] [address] Transesophageal Echocardiography Patient: Baldemar Mahoney Study ID: ECHO TARASRUTHIOMAIRA Gender: M : 1970 Age: 40 Room: Study Date: 09/03/2010 Pt Status: Outpatient Study Time: 08:22 AM Ordering:Iza Hameed Interpreting:Alen Louis MD Associate Professor Of Media Arts: Eliazar Vang [facility], RVT Indications and History: Atrial [...] transesophageal probe was inserted by the attending customs manager without difficulty. Image quality was good. Intravenous [...] identified. Agitated saline contrast study showed no wpqpt-yj-odil shunt. Cardiac Anatomy: LEFT VENTRICLE: The cavity [...] identified. Agitated saline contrast study showed no xxxzu-oe-xrug shunt. AORTIC VALVE: Trileaflet; normal thickness leaflets. [...] vena cava: The vessel was mildly dilated. [facility] is accredited with the Intersocietal Commission for the Accreditation of Echocardiography Laboratories (ICAEL) Prepared and Electronically Authenticated Alen Louis MD Confirmed 09/03/2010 09:10 Procedure Note Alen Louis MD - 09/03/2010 [facility] Cardiovascular Services Echocardiography Laboratory [address] [place] [address] Transesophageal Echocardiography Patient: Baldemar Mahoney Study ID: KULWINDER GOODRICH Gender: M : 1970 Age: 40 Room: Study Date: 09/03/2010 Pt Status: Outpatient Study Time: 08:22 AM Ordering:Iza Hameed Interpreting:Alen Louis MD Associate Professor Of Media Arts: Eliazar Vang RD, RUST Indications and History: Atrial Fibrillation. Pre Ablation [...] transesophageal probe was inserted by the attending customs manager without difficulty. Image quality was good. Intravenous [...] was identified.Agitated saline contrast study showed no wfssc-sq-ayas shunt. Cardiac Anatomy: LEFT VENTRICLE: The cavity [...] was identified.Agitated saline contrast study showed no yaiwf-sb-bbsm shunt. AORTIC VALVE: Trileaflet; normal thickness leaflets. [...] vena cava: The vessel was mildly dilated. [facility] is accredited with the Intersocietal Commission forthe Accreditation of Echocardiography Laboratories (ICAEL) Prepared and Electronically Authenticated Alen Louis MD Confirmed 09/03/2010 09:10 [facility] Hameed MD ORDERABLES Final Result Performing Organization Address City/State/[facility] Co de Phone Number INTERFACE SYSTEM Refer to clinic/hospital department documented in this encounter Visit Diagnoses Diagnosis Atrial fibrillation (CMS/HCC) Atrial fibrillation Atrial fibrillation (CMS/HCC) Atrial fibrillation Atrial fibrillation (CMS/HCC) Atrial fibrillation documented in this encounter Care Teams Paver Layer Relationship Specialty Start Date End Date Jojo Regalado MD [address] [phone] PCP - General Family Practice 05/20/18 documented as of this encounter
--- OUTSIDE RECORDS SUMMARY | 2025-06-15 08:15 | XMS_ITS | Encounter Summary ---
Author Organization [facility] Address [address] [place] [address] Care Team Providers Care Molding Machine Operator Name Role Phone Jojo Regalado MD Primary Care Provider +1- [phone] Encounter Details Date Type Department Care Team (Late st Contact Info) Description 06/13/2025 Results Follow-Up [facility] Emergency Medicine [address] [address] Aliya De León APRN 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
--- OUTSIDE RECORDS SUMMARY | 2025-06-15 08:15 | XMS_ITS | Encounter Summary ---
Author Organization [facility] Address [address] [place] [address] Care Team Providers Care Lace Winder Name Role Phone Jojo Regalado MD Primary Care Provider +1- [phone] Encounter Details Date Type Department Care Team (Late st Contact Info) Description 01/14/2008 Outpatient [facility] [address] [place] [address] [place] [address] Max Pompa MD [address] [place] [address] Abn React-Artif Implant; Unspecified Place of Occurrence; Tobacco Use Disorder; Esophageal Reflux Social History Tobacco Use Types Packs/Day Years Used Date Smoking Tobacco: Never Assessed Sex and Gender Information Value Date Recorded Sex Assigned at Not on file Legal Sex Male 6:49 AM CANDY FORMING MACHINE OPERATOR Gender Identity Not on file [...] reflux documented in this encounter Care Teams Lace Winder Relationship Specialty Start Date End Date Jojo Regalado MD [address] [phone] PCP - General Family Practice 05/20/18 documented as of this encounter
[2025-06-15 08:18] VITALS: BP 129/93; PULSE 66; RESP 19; TEMP 36.8; O2SAT 98
--- NOTE | 2025-06-15 08:27 | XR_ITS ---
WS: [id number] Portable AP upright chest, 06/15/2025 Clinical Data: cp Comparison: None. Findings: No nodules, masses or effusions are seen. The heart is enlarged. The pulmonary vascularity is not increased. No pneumonia or pneumothorax is seen. Monitor leads are on the chest wall. XR/XR chest 1V portable [id number] Impression: Cardiomegaly
[2025-06-15 08:35] LABS: Hematocrit 51.9 % (37-53); Hemoglobin 17.60 g/dL (11.27-16.99); Mean Corpuscular HGB Conc 33.9 g/dL (30-55); Mean Corpuscular Hemoglobin 28.9 pg (27-33); Mean Corpuscular Volume 85.2 fl (82-101); Nucleated Red Blood Cells % 0 %; Platelet Count 244 10^3/cmm (157-399); Red Blood Count 6.09 10^6/uL (3.85-5.65); White Blood Count 8.89 10^3/uL (3.29-11.43)
[2025-06-15 08:53] VITALS: BP 117/83; PULSE 63; O2SAT 98
[2025-06-15 09:00] LABS: Troponin(5th) Baseline 46 ng/L (0-15)
[2025-06-15 09:09] LABS: Alanine Aminotransferase 14 U/L (0-41); Albumin Level 4.3 g/dL (3.5-5.2); Alkaline Phosphatase 89 U/L (40-130); Anion Gap 19.2 (5-19); Aspartate Amino Transferase 13 U/L (0-40); Blood Urea Nitrogen 10 mg/dL (6-20); Calcium 9.9 mg/dL (8.5-10.5); Carbon Dioxide 20 mmol/L (22-29); Chloride 95 mmol/L (98-107); Creatinine Clr Calc Pharmacy 173.6354; Globulin 3.7 g/dL (1.3-4.6); Glucose 229 mg/dL (65-115); Lipase 21 U/L (13-60); Osmolality Calculated 276 mOsm/kg (285-295); Potassium 4.2 mmol/L (3.5-5.1); Sodium 130 mmol/L (136-145); Total Protein 8.0 g/dL (6.6-8.7)
[2025-06-15 09:23] VITALS: BP 116/82; PULSE 64; RESP 15; O2SAT 100
--- NOTE | 2025-06-15 09:32 | W.ED.ARRPALP ---
HPI - Arrhythmia/Palpitations General: Chief Complaint: Arrhythmia/Palpitations Stated Complaint: heart pelpations Time Seen by Provider: 06/15/25 08:16 Source: patient Mode of arrival: ambulatory Limitations: no limitations History of Present Illness: 54-year-old male who had a history of a STEMI 2 days ago. He states he woke up this morning felt like his heart was pounding states it had some slight pain. States pain is since resolved. Denies any nausea denies any shortness of breath denies any diaphoresis Related Data Home Medications ?Medication ?Instructions ?Recorded ?Confirmed fluticasone propionate 50 1 spray intranasal BID PRN nasal 10/25/21 06/15/25 mcg/actuation nasal congestion spray,suspension (Flonase Allergy Relief) loratadine 10 mg tablet (Claritin) 10 mg PO BID 10/25/21 06/15/25 glipizide 5 mg tablet 10 mg PO BID 06/13/25 06/15/25 levothyroxine 150 mcg tablet 150 mcg PO QAM 06/13/25 06/15/25 cetirizine 10 mg tablet (Zyrtec) 10 mg PO DAILY PRN allergies 06/15/25 06/15/25 Previous Rx's ?Medication ?Instructions ?Recorded pen needle, diabetic 32 gauge x #100 ea 10/25/2112/25 (CareTouch Pen Needle) aspirin 81 mg tablet,delayed 81 mg PO DAILY #90 tabs 06/14/25 release atorvastatin 40 mg tablet 40 mg PO BEDTIME #90 tabs 06/14/25 clopidogrel 75 mg tablet 75 mg PO DAILY #90 tabs 06/14/25 metoprolol succinate 25 mg 25 mg PO DAILY #90 tabs 06/14/25 tablet,extended release 24 hr pantoprazole 40 mg tablet,delayed 40 mg PO DAILY #30 tabs 06/14/25 release Allergies Allergy/AdvReac Type Severity Reaction Status Date / Time metformin AdvReac ADR-Drowsy Verified 12/09/22 08:18 [facility] ED PFS: Medical History (Updated 06/15/25 @ 11:01 by Humberto Lang MD) Arthritis pain Mixed hyperlipidemia GERD (gastroesophageal reflux disease) Arthritis Hypothyroidism, postradioiodine therapy Diabetes mellitus, type II Medication management Lower respiratory infection Social History Smoking and tobacco/nicotine status: current every day tobacco/nicotine user Course Vital Signs: Vital signs: Vital Signs Temperature 98.2 F 06/15/25 08:18 Pulse Rate 64 06/15/25 11:02 Respiratory Rate 15 06/15/25 09:23 Blood Pressure 125/77 06/15/25 11:02 Pulse Oximetry 100 06/15/25 11:02 Oxygen Delivery Me thod Room Air 06/15/25 09:23 MDM - Arrhythmia/Palpitations Medical Decision Making Patient presents for chest pain has been resolved since he has been here. 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 Medical Records I reviewed the patient's medical records. Lab Data I reviewed the patient's lab results. 06/15/25 08:24 06/15/25 08:24 Radiology Impressions Chest X-Ray 06/15/25 08:27 Impression: Cardiomegaly Laboratory Results WBC 8.89 10^3/uL (3.29-11.43) 06/15/25 08:24 RBC 6.09 10^6/uL (3.85-5.65) H 06/15/25 08:24 Hgb 17.60 g/dL (11.27-16.99) H 06/15/25 08:24 Hct 51.9 % (37-53) 06/15/25 08:24 MCV 85.2 fl (82-101) 06/15/25 08:24 MCH 28.9 pg (27-33) 06/15/25 08:24 MCHC 33.9 g/dL (30-55) 06/15/25 08:24 RDW 13.1 % (12.1-15.1) 06/15/25 08:24 Plt Count 244 10^3/cmm (157-399) 06/15/25 08:24 MPV 11.0 fL (7.4-10.4) H 06/15/25 08:24 Neut % (Auto) 66.6 % 06/15/25 08:24 Lymph % (Auto) 25.9 % 06/15/25 08:24 [place] % (Auto) 6.1 % 06/15/25 08:24 Eos % (Auto) 0.9 % 06/15/25 08:24 Baso % (Auto) 0.3 % 06/15/25 08:24 Neut # (Auto) 5.92 10^3/uL (1.8-7.7) 06/15/25 08:24 Lymph # (Auto) 2.3 10^3/uL (0.8-4.8) 06/15/25 08:24 [place] # (Auto) 0.5 10^3/uL (0.2-0.9) 06/15/25 08:24 Eos # (Auto) 0.1 10^3/uL (0.0-0.8) 06/15/25 08:24 Baso # (Auto) 0.0 10^3/uL (0.0-0.1) 06/15/25 08:24 Nucleated RBC % (auto) 0 % 06/15/25 08:24 Nucleated RBCs # 0.0 /100WBC 06/15/25 08:24 Sodium 130 mmol/L (136-145) L 06/15/25 08:24 Potassium 4.2 mmol/L (3.5-5.1) 06/15/25 08:24 Chloride 95 mmol/L (98-107) L 06/15/25 08:24 Carbon Dioxide 20 mmol/L (22-29) L 06/15/25 08:24 Anion Gap 19.2 (5-19) H 06/15/25 08:24 BUN 10 mg/dL (6-20) 06/15/25 08:24 Creatinine 0.6 mg/dL (0.7-1.2) L 06/15/25 08:24 GFR Calculation 141.5 mL/min (90-130) H 06/15/25 08:24 Glucose 229 mg/dL (65-115) H 06/15/25 08:24 Calculated Osmolality 276 mOsm/kg (285-295) L 06/15/25 08:24 Calcium 9.9 mg/dL (8.5-10.5) 06/15/25 08:24 Total Bilirubin 0.5 mg/dL (0.15-1.2) 06/15/25 08:24 AST 13 U/L (0-40) 06/15/25 08:24 ALT 14 U/L (0-41) 06/15/25 08:24 Alkaline Phosphatase 89 U/L (40-130) 06/15/25 08:24 Troponin T Baseline 46 ng/L (0-15) H 06/15/25 08:24 Troponin T 120 Minute 43.77 ng/L (0-15) H 06/15/25 10:23 Delta Troponin T -2.23 ABS# (0-10) L 06/15/25 10:23 Total Protein 8.0 g/dL (6.6-8.7) 06/15/25 08:24 Albumin 4.3 g/dL (3.5-5.2) 06/15/25 08:24 Globulin 3.7 g/dL (1.3-4.6) 06/15/25 08:24 Lipase 21 U/L (13-60) 06/15/25 08:24 All radiology interpretation(s) finalized by discharge EKG Data EKG 1: I personally reviewed and interpreted this EKG as follows: EKG interpretation date: 06/15/25 EKG interpretation time: 09:33 Interpretation: nsr hr [address] or t wave abnormalities qrs 111 qtc 412 Other EKG comments: Chest X-Ray 06/15/25 08:27 Impression: Cardiomegaly EKG 2: I personally reviewed and interpreted this EKG as follows: EKG interpretation date: 06/15/25 EKG interpretation time: 10:02 Interpretation: nsr hr [address] or t wave abnormalities qrs 108 qtc 400 Other EKG comments: Chest X-Ray 06/15/25 08:27 Impression: Cardiomegaly Discharge Plan Discharge Patient Disposition: Home Clinical Impression: Chest pain Condition: Stable Prescriptions: No Action loratadine [Claritin] 10 mg tablet 10 mg PO BID fluticasone propionate [Flonase Allergy Relief] 50 mcg/actuation spray,suspension 1 spray intranasal BID PRN (Reason: nasal congestion) Rx Instructions: administer into each nostril (DME) pen needle, diabetic [CareTouch Pen Needle] 32 gauge x 3/16 needle See Rx Instructions .Route Qty: 100 2RF Rx Instructions: As directed cetirizine [Zyrtec] 10 mg Tablet 10 mg PO DAILY PRN (Reason: allergies) levothyroxine 150 mcg tablet 150 mcg PO QAM glipizide 5 mg tablet 10 mg PO BID atorvastatin 40 mg Tablet 40 mg PO BEDTIME Qty: 90 1RF clopidogrel 75 mg Tablet 75 mg PO DAILY Qty: 90 3RF aspirin 81 mg Tablet,Delayed Release (Dr/Ec) 81 mg PO DAILY Qty: 90 3RF pantoprazole 40 mg Tablet,Delayed Release (Dr/Ec) 40 mg PO DAILY Qty: 30 1RF metoprolol succinate 25 mg tablet extended release 24 hr 25 mg PO DAILY Qty: 90 1RF Discharge Orders: Discharge ED (Routine); Ordered 06/15/25 Ordered By: Humberto Lang Referrals: Wandy Johnson NP [Primary Care Provider, Nurse Practitioner] Discharge Diet: Advance as tolerated Discharge Activity: Resume usual activity Patient Instructions: Chest Pain (ED) Print Language: [place]i Coding Level of Care Code ED Child Adolescent Psychiatrist for Mark Banerjee
[2025-06-15 10:00] VITALS: BP 121/79; PULSE 63; O2SAT 100
--- NOTE | 2025-06-15 10:27 | ECG_ITS ---
[facility] Date: 2025-06[facility]15 Pat Name: Baldemar Mahoney Department: Room: Gender: Male Management Advisor: : 1970 Requested By: Humberto Lang Order Number: [id number] Jose MD: Valery Soliz M.D. Measurements Intervals [place] Rate: 60 P: 66 VA: 204 QRS: -77 QRSD: 108 T: 54 QT: 399 QTc: 401 Interpretive Statements SINUS RHYTHM LEFT AXIS DEVIATION [QRS AXIS < -30] LOW QRS VOLTAGE IN PRECORDIAL LEADS [QRS DEFLECTION < 1.0 mV IN CHEST LEADS] INCOMPLETE RIGHT BUNDLE BRANCH BLOCK [90+ ms QRS DURATION, TERMINAL R IN V1/V2, 40+ ms S IN I/aVL/V4/V5/V6] POSSIBLE ANTERIOR MYOCARDIAL INFARCTION , OF INDETERMINATE AGE [30 ms Q WAVE IN V3/V4, OR R < 0.2 mV IN V4] Compared to ECG 06/15/2025 08:14:04 Low QRS voltage now present Myocardial infarct finding now present Electronically Signed On 06-16-2025 20:44:50 CDT by Valery Soliz M.D. [email or web address]
[2025-06-15 10:52] LABS: Troponin 5 2HR 43.77 ng/L (0-15)
[2025-06-15 10:53] LABS: Troponin 5 2HR Delta -2.23 ABS# (0-10)
[2025-06-15 11:02] VITALS: BP 125/77; PULSE 64; O2SAT 100
== END 2025-06-15 11:10 | disposition home or self-care (01) ==
PROVIDERS: Emergency Provider Emergency Medicine; PCP Nurse Practitioner Family
DX: R07.9 Chest pain, unspecified (principal); Z79.82 Long term (current) use of aspirin; Z79.02 Long term (current) use of antithrombotics/antiplatelets; Z72.0 Tobacco use; E78.2 Mixed hyperlipidemia; E11.9 Type 2 diabetes mellitus without complications
CPT/HCPCS: 36415; 71045; 80053; 83690; 84484; 85025; 93005; 99285